=== PATIENT | male | born 1935 | race Caucasian/White ===

== ENCOUNTER 2016-11-11 10:04 | Inpatient (IN) ==
[2016-11-11 10:40] LABS: MANUAL DIFF NEEDED? NO
--- NOTE | 2016-11-11 10:46 | EKG Report ---
Test Performed on : 11/11/2016 10:29:14 AM Test Reason : AMS Blood Pressure : / mmHG Vent. Rate : 085 BPM Atrial Rate : 080 BPM P-R Int : 000 ms QRS Dur : 138 ms QT Int : 398 ms P-R-T Axes : 000 085 -23 degrees QTc Int : 473 ms Atrial fibrillation. Right bundle branch block T wave abnormality, consider inferior ischemia Abnormal ECG When compared with ECG of 24-JUN-2016 12:06, Left posterior fascicular block is no longer present T wave inversion now evident in Inferior leads QT has lengthened Unconfirmed Result
[2016-11-11] MEDS ORDERED: NS 1,000 ML IV ONE ×2 (11:00→12:35)
[2016-11-11 11:04] LABS: ALBUMIN 3.7 g/dL (3.5-5.0); CALCIUM 10.3 mg/dL (8.8-10.2); POTASSIUM 5.1 mmol/L (3.5-5.1); TOTAL BILIRUBIN 0.4 mg/dL (0.20-1.00); TOTAL PROTEIN 7.5 g/dL (6.3-8.3)
[2016-11-11 11:10] LABS: BASO% 0.3 % (0.0-0.8); EOS# 0.22 X1000 (0.0-0.7); EOS% 1.9 % (0.0-10.0); HEMATOCRIT 40.6 % (42.0-52.0); HEMOGLOBIN 13.3 g/dL (14.0-18.0); IMM GRAN# 0.02 X1000 (0.0-0.04); IMM GRAN% 0.2 % (0.0-0.5); LYMPH# 1.17 X1000 (1.2-3.4); LYMPH% 10.1 % (20.5-51.1); MCH 28.4 PG (27-31); MCHC 32.8 g/dL (33-37); MCV 86.8 FL (81-99); MONO# 0.92 X1000 (0.11-0.59); MONO% 7.9 % (1.7-9.3); MPV 10.3 FL (7.4-10.4); NEUT% 79.6 % (42.2-75.2); PLT 574 X1000 (130-400); RBC 4.68 XMIL (4.7-6.1)
[2016-11-11 11:13] LABS: AMYLASE 58 U/L (20-200); LIPASE 32 U/L (13-60)
[2016-11-11 11:14] LABS: INR 1.04 (0.86-1.15); PROTIME 13.9 Seconds (12.1-15.5)
[2016-11-11 11:16] LABS: PTT PL 49.6 Seconds (22.6-43.9)
--- NOTE | 2016-11-11 11:23 | Diag Imaging Result Doc PS360 ---
EXAM: HEAD W/O CONTRAST HISTORY: weakness TECHNIQUE: Dose reduction protocol COMPARISON: 10/29/2016 FINDINGS: No parenchymal hemorrhage. No epidural or subdural hematoma. No subarachnoid hemorrhage. There is atrophy with chronic microvascular ischemic changes and ventricular prominence. Old right lacunar. No sinus opacification. IMPRESSION: 1.No hemorrhage 2.Atrophy with chronic microvascular ischemic changes Electronically signed by Tone Zavala 11/11/2016 11:21 AM
--- NOTE | 2016-11-11 11:28 | Diag Imaging Result Doc PS360 ---
EXAM: CHEST-1 VIEW HISTORY: weakness TECHNIQUE: COMPARISON: 06/24/2016 FINDINGS: Poor inspiratory effort. The heart is prominent. There is right suprahilar prominence on the current exam. There are small bilateral pleural effusions with basilar atelectasis. There may be fibrosis in the right base as well versus a recurrent infiltrate. IMPRESSION: Right suprahilar mass like area. A CT is suggested. Electronically signed by Tone Zavala 11/11/2016 11:25 AM
--- NOTE | 2016-11-11 12:01 | PROVIDER DOCUMENTATION ---
This chart was entered by Kaylee Chew Scribe, acting as scribe for Chris Pickett PA. HPI-General Adult - General Chief Complaint: Weakness Stated Complaint: WEAKNESS/DIARRHEA Time Seen by Provider: 11/11/16 10:20 Source: patient, family Allergies/Adverse Reactions: Patient Allergies Allergy/AdvReac Type Severity Reaction Status Date / Time No Known Allergies Allergy Verified 10/29/16 12:53 Home Medications: Home Medication List Medication Instructions Recorded Confirmed Last Taken Type Digoxin 250 mcg PO DAILY 06/17/14 04/06/16 06/16/14 History Pregabalin [Lyrica] 150 mg PO DAILY 06/17/14 11/11/16 11/10/16 09:00 History Rivaroxaban [Xarelto] 20 mg PO DAILY 06/17/14 11/11/16 06/16/14 History Sertraline HCl 150 mg PO DAILY 06/17/14 11/11/16 11/10/16 09:00 History Amlodipine Besylate 1 tab PO DAILY 11/11/16 11/11/16 Unknown History Digoxin [Digox] 0.25 mcg PO DAILY 11/11/16 11/11/16 Unknown History Irbesartan 1 tab PO DAILY 11/11/16 11/11/16 Unknown History Oxycodone HCl/Acetaminophen 7.5 mg PO Q4H PRN PRN 11/11/16 11/11/16 Unknown History [Oxycodon-Acetaminophen 7.5-325] Oxycodone HCl/Acetaminophen 1 tab PO Q4HR 11/11/16 11/11/16 Unknown History [Percocet 7.5-325 mg Tablet] Rivaroxaban [Xarelto] 1 tab PO DAILY 11/11/16 11/11/16 Unknown History - History of Present Illness -Gen Adult Nature of Presenting Problems: PT IS A 81YOM PRESENTING TO THE ED C/O GENERAL WEAKNESS. PT FELL ON October WHEN GETTING OUT OF THE SHOWER AND HAS A DISPLACED COMPRESSION FX'S OF T-11, T- 12 WITH FOLLOW UP TO [place]THO IN [place]. PTS STATES THAT HE IS UNABLE TO MOVE OR CARE FOR HIMSELF SINCE FALL, PT HAS HAD DIARRHEA, ABD PAIN PN, DECREASED APPETITE, WEAKNESS, AND DRY MOUTH. FAMILY NEEDS ASSISTANCE WITH PT CARE BC SHE STATES HE IS BED BOUND NOW AFTER THE FALL. NO OTHER COMPLAINTS AT THIS TIME Location of Pain/Injury: reports: back, generalized Pain Radiation: reports: no radiation Quality of Pain: reports: aching Severity: reports: moderate Onset/Duration: reports: gradual, other (2 WEEKS) Timing: reports: still present, getting worse Context/Activities at Onset: reports: light activity, recent trauma history Modifying Factors: improves with: immobilization, lying down, movement. worse with: eating Associated Symptoms: reports: back/neck pain, diarrhea, dizziness, fatigue, loss of appetite, malaise, muscle aches, weakness, trouble walking. denies: anxiety, chest pain, syncope Similar Symptoms Previously?: No Recently seen or treated by another doctor?: Yes Review of Systems - Adult - REVIEW OF SYSTEMS - ADULT ROS:: ROS per family Constitutional: reports: no symptoms reported Eyes: reports: no symptoms reported Ears, Nose, Mouth & Throat: reports: see HPI, hearing loss. denies: sinus problem, throat swelling Cardiovascular: reports: no symptoms reported Respiratory: reports: no symptoms reported Gastrointestinal: reports: see HPI, abdominal pain, diarrhea, nausea, poor appetite. denies: constipation, vomiting Genitourinary: reports: no symptoms reported Musculoskeletal: reports: see HPI, bone pain, back pain, muscle aches, muscle weakness. denies: joint pain, neck pain Integumentary: reports: no symptoms reported Neurological: reports: no symptoms reported Psychiatric: reports: no symptoms reported Endocrine: reports: no symptoms reported Hematologic/Lymphatic: reports: no symptoms reported Allergic/Immunologic: reports: no symptoms reported All Other Systems: Reviewed and Negative Past History - Adult - PAST MEDICAL HISTORY-ADULT Review of Records: reports: Old Records Reviewed, Nursing Assessment Review, Medications Reviewed, Social history reviewed & non-contributory. Major Childhood Illnesses: reports: denies history Cardiovascular: reports: A-Fib, HTN Respiratory: reports: denies history Gastrointestinal: reports: cancer (prostate) Obstetrical/Gynecological: reports: denies history Genitourinary: reports: denies history Musculoskeletal: reports: denies history Neurological: reports: CVA Endocrine/Immune: reports: denies history Other Conditions: reports: denies history - PRIOR SURGERIES/PROCEDURES Surgical/Procedure History: reports: other (TURP) - IMMUNIZATION STATUS Childhood Immunizations: See Nurse Assessment Flu Vaccine: See Nurse Assessment - FAMILY HISTORY Family History: reviewed, not pertinent - SOCIAL HISTORY Smoking: quit greater than 1 year Substance Use: none/never, alcohol Alcohol Use Frequency: every day Number of drinks per typical drinking period:: 3-4 drinks Living Situation: family Physical Exam-General - PHYSICAL EXAM-ADULT Initial Vital Signs Reviewed: Yes - CONSTITUTIONAL General Appearance: alert, mild distress, thin, anxious. negative: no apparent distress - EYES Eyes: PERRL/EOMI, pink conjunctivae - HEAD, EARS, NOSE, MOUTH & THROAT HENMT: normocephalic/atraumatic, normal ENT inspection, TMs normal, pharynx normal, other (DRY MEMBRANES). negative: moist mucous membranes - NECK Neck: non-tender, full range of motion, supple, normal inspection - RESPIRATORY Respiratory: chest non-tender, lungs clear, normal breath sounds, no pleuratic chest pain, no respiratory distress, no accessory muscle use - CARDIOVASCULAR Cardiovascular: normal peripheral pulses, regular rate, rhythm, no edema, no gallop, no JVD, no murmur, other (HYPOTENSIVE, HX OF HTN) - GASTROINTESTINAL (ABDOMEN) Abdominal Exam: normal bowel sounds, non tender, soft, no organomegaly, no pulsatile mass - LYMPHATIC Lymphatic: no adenopathy - MUSCULOSKELETAL Back Exam: normal inspection, no CVA tenderness, muscle spasm, vertebral tenderness. negative: no vertebral tenderness Extremity: non-tender, no pedal edema, no calf tenderness, normal capillary refill, pelvis stable. negative: normal range of motion, normal gait, normal inspection - SKIN Integumentary: normal color, normal turgor, warm/dry - NEUROLOGIC Neurologic: grossly normal, no motor/sensory deficits, motor weakness - PSYCHIATRIC Psych/Mental Status: normal thought content, normal thought process, oriented x 3, depressed affect. negative: normal mood/affect Progress - PLAN OF CARE/RESULTS Progress/Plan/Lab Results: Vital Signs - 8 hr 11/11/16 10:06 Temperature 97.9 F Pulse Rate 84 Respiratory Rate 22 Blood Pressure 84/55 Laboratory Results - last 24 hr 11/11/16 11/11/16 11/11/16 10:30 10:30 10:30 WBC RBC Hgb Hct MCV MCH MCHC RDW Std Deviation Plt Count MPV Immature Gran % (Auto) Neut % (Auto) Lymph % (Auto) [place] % (Auto) Eos % (Auto) Baso % (Auto) Immature Gran # (Auto) Neut # (Auto) Lymph # (Auto) [place] # (Auto) Eos # (Auto) Baso # (Auto) PT INR APTT (Factor Assay) Sodium 130 L Potassium 5.1 Chloride 92 L Carbon Dioxide 26 Anion Gap 12 BUN 51 H Creatinine 1.7 H Estimated GFR/1.73 m2 39 BUN/Creatinine Ratio 30 Glucose 97 Calculated Osmolality 274 Calcium 10.3 H Total Bilirubin 0.40 AST 22 ALT 15 Alkaline Phosphatase 113 Creatine Kinase 17 L Troponin T < 0.010 Total Protein 7.5 Albumin 3.7 Globulin 4.0 Albumin/Globulin Ratio 1.0 Amylase Lipase Plasma Lactate 0.9 11/11/16 11/11/16 11/11/16 10:30 10:30 10:30 WBC 11.64 H RBC 4.68 L Hgb 13.3 L Hct 40.6 L MCV 86.8 MCH 28.4 MCHC 32.8 L RDW Std Deviation 14.9 H Plt Count 574 H MPV 10.3 Immature Gran % (Auto) 0.2 Neut % (Auto) 79.6 H Lymph % (Auto) 10.1 L [place] % (Auto) 7.9 Eos % (Auto) 1.9 Baso % (Auto) 0.3 Immature Gran # (Auto) 0.02 Neut # (Auto) 9.28 H Lymph # (Auto) 1.17 L [place] # (Auto) 0.92 H Eos # (Auto) 0.22 Baso # (Auto) 0.03 PT 13.9 INR 1.04 APTT (Factor Assay) 49.6 H Sodium Potassium Chloride Carbon Dioxide Anion Gap BUN Creatinine Estimated GFR/1.73 m2 BUN/Creatinine Ratio Glucose Calculated Osmolality Calcium Total Bilirubin AST ALT Alkaline Phosphatase Creatine Kinase Troponin T Total Protein Albumin Globulin Albumin/Globulin Ratio Amylase 58 Lipase 32 Plasma Lactate Orders Category Date Time Status Cardiac Monitoring DIRECTED Care 11/11/16 10:17 Active Finger Stick Blood Sugar (ED) DIRECTED Care 11/11/16 10:17 Active Oxygen Therapy- ED Nursing DIRECTED Care 11/11/16 10:17 Active Saline Loc NOW Care 11/11/16 10:17 Active CHEST-1 VIEW [RAD] Stat Exams 11/11/16 11:01 Ordered HEAD W/O CONTRAST [CT] Stat Exams 11/11/16 11:00 Ordered ALCOHOL BLOOD Stat Lab 11/11/16 10:30 Received AMYLASE [CHEM] Stat Lab 11/11/16 10:30 Completed CBC WITH ELECTRONIC DIFF [HEME] Stat Lab 11/11/16 10:30 Completed CK PROFILE [SP CHEM] Stat Lab 11/11/16 10:30 Completed COMPREHENSIVE METABOLIC PANEL [CHEM] Stat Lab 11/11/16 10:30 Completed LACTATE, PLASMA [CHEM] Stat Lab 11/11/16 10:30 Completed LIPASE [CHEM] Stat Lab 11/11/16 10:30 Com[address]IME WITH INR PL [COAG] Stat Lab 11/11/16 10:[address] [COAG] Stat Lab 11/11/16 10:30 Completed TROPONIN T Stat Lab 11/11/16 10:[address] W/POSS RFLX CULT [URINALYSIS] Stat Lab 11/11/16 10:17 Uncollected URINE DRUG SCREEN PL Stat Lab 11/11/16 10:17 Uncollected 0.9% Sodium Chloride Inj [Ns] 1,000 ml Med 11/11/16 11:00 Active IV 999 mls/hr Pulse Oximetry Stat Oth 11/11/16 10:17 Active EKG [EKG] Stat Ther 11/11/16 10:17 Draft Result Diagrams: 11/11/16 10:30 11/11/16 10:30 - CONSULTS/PCP/HOSPITALIST Notification #1 *Consult/PCP/Hospitalist*: Dr. Leigh (PCP) Time Discussed: 12:33 Reason/Comments: Will admit Departure - Departure Date of Disposition Decision: 11/11/16 Time of Disposition Decision: 12:33 DIAGNOSIS: Dehydration, SONALI (acute kidney injury), Mass in chest, Decreased activities of daily living (ADL) Disposition: ADMITTED INPATIENT 09 Certified Medical Emergency: Emergent Condition: Stable Referrals and Follow-Ups: Prasanth Leigh MD [Primary Care Provider] - - Critical Care Note This patient required my direct & personal management of CC.: No Attestation - Physician/ FREIDA Attestation Patient care was provided by Advanced Practice Provider:: Yes Advanced Practice Provider:: Chris Pickett Advanced Practice Provider documentation review:: The Mid-level provider documentation, treatment plan and medical decision making was reviewed by the physician who agrees with all treatment and medical decision making by the MLP. This chart was documented by the indicated scribe, (Kaylee Chew Scribe) and accurately reflects the services I performed and decisions made by me, Chris Pcikett PA, as attested by the provider's signature.
[2016-11-11] MEDS ORDERED: MORPHINE IM ONE (12:10)
[2016-11-11] MEDS ORDERED: ZOFRAN IV ONE (12:10)
[2016-11-11 12:58] LABS: URINE CULTURE PL NEEDED? NO
--- NOTE | 2016-11-11 13:02 | ED EKG INTERP ---
This chart was entered by Kaylee Chew Scribe, acting as scribe for Darek Guerrero MD. EKG Interpretation - EKG Time of EKG reading by physician:: 10:29 EKG Read and Signed by:: Darek Guerrero EKG Interpretation (*Must complete 3 of following elements*): Abnormal Rate: 85 Rhythm: A-FIB [place]: normal QRS: RBB, other (T WAVE ABNORMALITY, CONSIDER INFERIOR ISCHEMIA) [place] Interval: normal ST Wave: normal This chart was documented by the indicated scribe, (Kaylee Chew Scribe) and accurately reflects the services I performed and decisions made by me, Darek Guerrero MD, as attested by the provider's signature.
[2016-11-11 13:03] LABS: UR AMPHETAMINES QUAL NONE DETECTED (NONE DETECT); UR BARBITUATES QUAL NONE DETECTED (NONE DETECT); UR BENZODIAZEPIN QUAL NONE DETECTED (NONE DETECT); UR CANNABINOIDS QUAL NONE DETECTED (NONE DETECT); UR COCAINE QUAL NONE DETECTED (NONE DETECT); UR MDMA QUAL NONE DETECTED (NONE DETECT); UR METHADONE QUAL NONE DETECTED (NONE DETECT); UR METHAMPHETAMINE QUAL NONE DETECTED (NONE DETECT); UR OPIATES QUAL NONE DETECTED (NONE DETECT); UR OXYCODONE QUAL PRESUMPTIVE POSITIVE (NONE DETECT); UR PCP QUAL NONE DETECTED (NONE DETECT); UR TCA QUAL NONE DETECTED (NONE DETECT)
[2016-11-11 13:04] LABS: BILIRUBIN URINE NEGATIVE (NEGATIVE); BLOOD URINE NEGATIVE (NEGATIVE); COLOR YELLOW; GLUCOSE URINE NEGATIVE (NEGATIVE); LEUKOCYTES URINE NEGATIVE (NEGATIVE); NITRITE URINE NEGATIVE (NEGATIVE); PROTEIN URINE NEGATIVE (NEGATIVE); SP GRAVITY URINE 1.015; UROBILINOGEN URINE NORMAL
[2016-11-11 13:38] LABS: CLARITY CLEAR (CLEAR); URINE EPITHELIAL CELLS <10 /HPF (<10); URINE SOURCE CATH
[2016-11-11] MEDS ORDERED: M.V.I.-12 10 ML, FOLIC ACID 1 MG, MAGNESIUM SULFATE 1 GM, THIAMINE 100 MG in NS 1,000 ML IV SCH (17:00)
[2016-11-11] MEDS: PERCOCET-5 PO PRN (20:04)
[2016-11-11] MEDS: DUONEB (A & A) INH PRN (20:40)
[2016-11-11] MEDS ORDERED: NS 1,000 ML IV SCH (22:32)
[2016-11-11] MEDS ORDERED: MOVANTIK PO ONE (22:33)
[2016-11-12] MEDS: DUONEB (A & A) INH PRN ×4 (07:58→22:12)
[2016-11-12] MEDS: ZOLOFT PO SCH (08:26)
[2016-11-12] MEDS: LYRICA PO SCH (08:26)
[2016-11-12] MEDS: MOVANTIK PO SCH (08:26)
[2016-11-12] MEDS: NORVASC PO SCH (08:27)
[2016-11-12] MEDS: AVAPRO PO SCH (08:27)
[2016-11-12] MEDS: LANOXIN PO SCH (08:27)
[2016-11-12] MEDS ORDERED: XARELTO PO SCH (09:00)
[2016-11-12] MEDS ORDERED: LANOXIN PO SCH (09:00)
[2016-11-12] MEDS: NS 1,000 ML IV SCH ×2 (11:49→18:35)
[2016-11-12 13:05] LABS: AGAP 13; ALBUMIN 3.6 g/dL (3.5-5.0); ALKALINE PHOSPHATASE 110 U/L (32-122); BUN 29 mg/dL (8-22); CALCIUM 8.8 mg/dL (8.8-10.2); CHLORIDE 98 mmol/L (98-107); COSMO 276; GOT 20 U/L (10-34); GPT 13 U/L (10-44); POTASSIUM 5.1 mmol/L (3.5-5.1); SODIUM 135 mmol/L (136-145); TCO2 25 mmol/L (25-35); TOTAL PROTEIN 6.5 g/dL (6.3-8.3)
[2016-11-12] MEDS: PERCOCET-5 PO PRN (15:49)
[2016-11-12] MEDS: XARELTO PO SCH (17:36)
[2016-11-13] MEDS: NS 1,000 ML IV SCH ×4 (01:25→23:49)
[2016-11-13] MEDS: MOVANTIK PO SCH (06:22)
[2016-11-13 06:45] LABS: MANUAL DIFF NEEDED? NO
[2016-11-13 06:52] LABS: BASO% 0.1 % (0.0-0.8); EOS# 0.16 X1000 (0.0-0.7); HEMATOCRIT 32.2 % (42.0-52.0); HEMOGLOBIN 10.1 g/dL (14.0-18.0); IMM GRAN# 0.02 X1000 (0.0-0.04); IMM GRAN% 0.3 % (0.0-0.5); LYMPH# 0.71 X1000 (1.2-3.4); MCH 28.1 PG (27-31); MCHC 31.4 g/dL (33-37); MCV 89.7 FL (81-99); MONO# 0.63 X1000 (0.11-0.59); MPV 9.5 FL (7.4-10.4); NEUT% 80.6 % (42.2-75.2); PLT 311 X1000 (130-400); RBC 3.59 XMIL (4.7-6.1)
[2016-11-13 06:59] LABS: AGAP 10; ALBUMIN 2.9 g/dL (3.5-5.0); ALKALINE PHOSPHATASE 87 U/L (32-122); BUN 18 mg/dL (8-22); CALCIUM 8.2 mg/dL (8.8-10.2); CHLORIDE 101 mmol/L (98-107); COSMO 270; GOT 17 U/L (10-34); GPT 11 U/L (10-44); POTASSIUM 4.9 mmol/L (3.5-5.1); SODIUM 134 mmol/L (136-145); TCO2 23 mmol/L (25-35); TOTAL PROTEIN 5.8 g/dL (6.3-8.3)
[2016-11-13] MEDS: DUONEB (A & A) INH PRN ×2 (07:34→20:36)
[2016-11-13] MEDS: LANOXIN PO SCH (09:38)
[2016-11-13] MEDS: NORVASC PO SCH (09:42)
[2016-11-13] MEDS: LYRICA PO SCH (09:43)
[2016-11-13] MEDS: AVAPRO PO SCH (09:43)
[2016-11-13] MEDS: ZOLOFT PO SCH (09:49)
--- NOTE | 2016-11-13 13:23 | HISTORY AND PHYSICAL ---
HISTORY OF PRESENT ILLNESS: The patient is a regular office patient of [employer] I have been seeing for many years. For assorted problems including hypertension, history of atrial fibrillation, history of a stroke, history of CA of the prostate. Recently the patient was in his usual state of ill health and had been complaining of generalized weakness. He fell on October 29 while he was getting out of the shower and has displaced compression fractures at T11 and T12 and has been seeing an orthopedic doctor in [place], Dr. Reyes. The patient now is unable to move or care for himself as stated by his . He is very difficult for her to handle and he has had since the fall some problems with some belly pain and diarrhea, decreased appetite, dry mouth and general weakness. He takes powerful opiates. She states that he needs assistance because he is basically bed bound and needs to have some rehab. He is also being evaluated with his osteopenia by Dr. Reyes for the possibility of a kyphoplasty. This problem has been going on for approximately 2 weeks . His evaluation in the emergency room revealed a temperature of 97.9 degrees, pulse of 84, respiratory rate 22, BP 84/55, typically he has hypertension. His sodium was 13, potassium 5.1, chloride 92, CO2 26, BUN was 51, creatinine 1.7. These are atypically high for him. Anion gap was 12. Estimated GFR 39. BUN and creatinine ratio is 30. Glucose was 97. Calcium is 10.3, total bilirubin 0.4, AST 22, ALT 15. Alkaline phosphatase 113. CK 17, troponin less than 0.01. Total protein 75, albumin 3.7, globulin 4, plasma lactate is 0.9. His WBCs were 11.64, hematocrit was 40.6, platelet count was 574,000. PT was 104, INR, PTT 49.6, amylase and lipase were normal. He had a continued issue with his activities of daily life and that is why he was brought here and we felt that he needed to be admitted. ALLERGIES: No known allergies. MEDICATIONS: Include the following: He takes digoxin 250 daily, Lyrica 150 daily, Xarelto 20 daily, Zoloft 150 daily, amlodipine daily, irbesartan 1 daily. He has taken 7.5 OxyContin q.4 h for his back pain. REVIEW OF SYSTEMS: General: Mostly obtained from his family. He has not had any recent significant fever, chills, weight gain or weight loss. Eyes: No changes in visual acuity. No irritation of the sclera or conjunctiva. Visual connelly were unchanged. Ears, nose and throat: He has had dry mouth. No evidence of pharyngitis, otitis or sinusitis. 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 Cardiovascular: No chest pain. He is not aware of palpitations. He is not aware of any orthopnea, PND. No claudication and no chest pain. Respiratory: No significant cough or phlegm production. He has significant exercise tolerance issues. Musculoskeletal: He has bone pain in his back. His muscles ache. He has general generally weak. He has no inflamed joints. Skin: Clear. No rashes. Neurological: No focal neurological deficits. Psychiatric: He is chronically anxious and depressed. Endocrine: No polyuria, polydipsia, polyphagia, weight gain or weight lost. Hematologic: He is on a blood thinner but has no significant bruises or bleeding. As previously mentioned, he has had a history of hypertension complicated by atrial fibrillation and a history of stroke all tying together nicely. He has a history of CA of the prostate. SOCIAL HISTORY: He is an ex-smoker having quit more than a year ago. He is a drinker. He does not abuse any substances. He lives with his son and much younger from [facility]. PHYSICAL EXAMINATION: HEENT: Head was normocephalic with some temporal wasting. Eyes were PERRLA. EOMs intact. SC were anicteric and they were not pale. Nares patent. Oropharynx with some dry mucosal membranes. NECK: Midline trachea. No thyromegaly. No lymphadenopathy. Carotids without bruits. CHEST: Increased AP diameter. Diminished breath sounds throughout. Rhonchi. No consolidative features were appreciated. ABDOMEN: Soft. No hepatosplenomegaly. No CVA tenderness. He is somewhat bloated and tender in his lower abdomen felt to be secondary to his constipation. EXTREMITIES: Thin. Pulses were intact. He had some bruising about his skin surfaces. NEUROLOGICAL: He was symmetrical. ADMITTING DIAGNOSES: 1. Recent compression fractures. 2. Fall risk. 3. Failure to thrive. 4. Moderate to severe dehydration. 5. Constipation. 6. History of hypertension. 7. History of atrial fibrillation. 8. Current hypotension. PLAN: He was admitted for fluid resuscitation and pain control. Shown coincidentally, to find an abnormality on his chest x-ray that had not previously been present and this is going to be worked up, as well. cc: Prasanth Leigh MD
--- NOTE | 2016-11-13 13:51 | Diag Imaging Result Doc PS360 ---
CT THORAX W/CONTRAST - 11/13/2016 INDICATION: hilar mass TECHNIQUE: A CT dose reduction protocol was used. COMPARISON: 06/03/2014 FINDINGS: There is slight enlargement of the left basilar pleural thickening or effusion, at the lateral pleural surface. There is a trace left effusion as well. There is severe COPD with upper lobe predominance. There are some stable strandy scarring at the right lung base. Major airways are patent. There is progression in size of the hiatal hernia. There is worse cardiomegaly, notably enlargement of the right atrium. There is also calcified coronary artery disease. There is severe calcified disease of the branches of the abdominal aorta. 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 There is also severe bilateral renal artery stenosis with over 70% narrowing. Spleen size is mildly enlarged measuring 13.8 x 7 cm. There are numerous healed rib deformities and degenerative changes throughout the spine. No acute bony process. IMPRESSION: 1. Worsening cardiomegaly. 2. Worsening pleural thickening/effusion at the right lung base. New trace left effusion. 3. Grossly stable severe COPD with pulmonary scarring. 4. 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 5. Worsening hiatal hernia. Electronically signed by Jaspreet Madrid 11/13/2016 1:49 PM
[2016-11-13] MEDS: XARELTO PO SCH (17:11)
[2016-11-14] MEDS: NS 1,000 ML IV SCH ×3 (05:52→18:57)
[2016-11-14] MEDS: DUONEB (A & A) INH PRN ×2 (07:33→12:14)
[2016-11-14] MEDS: AVAPRO PO SCH (08:47)
[2016-11-14] MEDS: MOVANTIK PO SCH (08:48)
[2016-11-14] MEDS: LYRICA PO SCH (08:48)
[2016-11-14] MEDS: ZOLOFT PO SCH (08:48)
[2016-11-14] MEDS: NORVASC PO SCH (08:49)
[2016-11-14] MEDS: LANOXIN PO SCH (08:51)
--- NOTE | 2016-11-14 13:19 | PROGRESS NOTE ---
DATE: 11/14/2016 An 81-year-old male who is hospitalized for an acute compression fracture complicated by constipation secondary to opiate use for his compression fracture. He continues to have pain. I continue to disimpact him. He is some better. Belly is soft. I think we almost have him disimpacted. He is tentatively set up to go Wednesday to a rehab center. cc: Prasanth Leigh MD
[2016-11-14] MEDS: XARELTO PO SCH (17:28)
[2016-11-14] MEDS: PERCOCET-5 PO PRN (21:22)
[2016-11-15] MEDS: NS 1,000 ML IV SCH ×3 (02:07→18:27)
[2016-11-15] MEDS: PERCOCET-5 PO PRN ×2 (02:07→10:24)
[2016-11-15] MEDS: DUONEB (A & A) INH PRN ×4 (08:12→19:41)
[2016-11-15] MEDS: NORVASC PO SCH (10:15)
[2016-11-15] MEDS: ZOLOFT PO SCH (10:15)
[2016-11-15] MEDS: LYRICA PO SCH (10:16)
[2016-11-15] MEDS: MOVANTIK PO SCH (10:16)
[2016-11-15] MEDS: LANOXIN PO SCH (10:16)
[2016-11-15] MEDS: AVAPRO PO SCH (10:18)
[2016-11-15] MEDS: XARELTO PO SCH (17:26)
[2016-11-16] MEDS: PERCOCET-5 PO PRN ×2 (00:18→21:29)
[2016-11-16] MEDS: NS 1,000 ML IV SCH ×4 (07:30→21:30)
[2016-11-16] MEDS: MOVANTIK PO SCH (08:29)
[2016-11-16] MEDS: LYRICA PO SCH (08:30)
[2016-11-16] MEDS: LANOXIN PO SCH (08:30)
[2016-11-16] MEDS: ZOLOFT PO SCH (08:30)
[2016-11-16] MEDS: NORVASC PO SCH (08:30)
[2016-11-16] MEDS: AVAPRO PO SCH (08:31)
[2016-11-16] MEDS: XARELTO PO SCH (17:08)
[2016-11-16] MEDS: DUONEB (A & A) INH PRN (19:49)
[2016-11-17] MEDS: NS 1,000 ML IV SCH ×3 (03:28→12:00)
[2016-11-17] MEDS: DUONEB (A & A) INH PRN ×3 (08:01→15:06)
[2016-11-17] MEDS: MOVANTIK PO SCH (08:06)
[2016-11-17] MEDS: LANOXIN PO SCH (09:02)
[2016-11-17] MEDS: NORVASC PO SCH (09:02)
[2016-11-17] MEDS: LYRICA PO SCH (09:02)
[2016-11-17] MEDS: ZOLOFT PO SCH (09:03)
[2016-11-17] MEDS: AVAPRO PO SCH (09:03)
--- NOTE | 2016-11-17 14:44 | DISCHARGE SUMMARY ---
ADMISSION DATE: 11/11/2016 DISCHARGE DATE: HOSPITAL COURSE: The patient is a regular office patient of mine I have been seeing for many years for problems including hypertension, history of atrial fibrillation, history of a CVA, history of CA of the prostate. He has been generalized weakness lately and he fell on October 29 while he was getting out of the shower and sustained a displaced compression fracture of T11 and T12 and has been seeing an orthopedic doctor in [place], Dr. Reyes. The patient, however, in the meanwhile has been become unable to move for a care for himself as stated by his , and he is very difficult to handle, both physically and mentally. He has had some belly distention complicated by constipation and diarrhea. Since he has been started on pain medications, he has a decreased appetite, dry mouth and generalized weakness. He has been taking significantly powerful opiates and he states that he needs to be assisted because he is basically bed bound and needs some kind of rehab. He is also being evaluated with his osteopenia by Dr. Reyes for the possibility of a kyphoplasty. This problem has been going on approximately 2 weeks prior to his admission on 11/10/16. While in the hospital for pain control, with significant problems with abdominal distention, I had to disimpact him on 2 different occasions, but currently with Movantik and decreasing his pain medicines from oxycodone to [place] may alleviate that problem. His back pain seems a bit better as he can roll from side to side seemingly without great discomfort. While was in the hospital as well, he was noted on admission to have a BUN of 51, creatinine 1.7 and with rehydration by 11/13, his BUN was 18, creatinine was 0.8. His urinalysis was unremarkable. Toxicology showed OxyContin. Coagulase, PTT was 49.6. Hematologically he had a elevated white count of 11.64 on admission, but with hydration it dropped to 7.91. His hematocrit was 40.6 on admission, with hydration dropped to 32.2. Platelet count was 574,000, with hydration dropped to 311,000. He did not run fevers during the hospital stay. His blood pressures were well controlled. He had a room O2 saturation on 11/17 of 99% on 2 L. On room air it was 93%. He seemed to tolerate that just fine. He is being sent to a local rehab for further convalescence for his illnesses. CURRENT MEDICATIONS: Albuterol/Atrovent q.4 p.r.n., 5 mg of amlodipine daily, digoxin 0.25 mg daily, Movantik 12.5 daily, irbesartan, Avapro 150 daily, Lyrica 150 daily, Xarelto 20 with supper, Zoloft 150, and he is going to be discharged on [place] and he is going to be bumped up on his Lyrica to twice a day. We will continue to follow him and he will subsequently be sent to perhaps Dr. Reyes if his condition does not continue to improve. He seems better now though. cc: Prasanth Leigh MD
[2016-11-17 16:17] VITALS: BP 144/72
[2016-11-17] MEDS: XARELTO PO SCH (17:47)
== END 2016-11-17 19:30 ==
LOC: P.ED 10:04 → P.MEDSURG 13:09
PROVIDERS: ADMIT Internal Medicine; ATTEND Internal Medicine

== ENCOUNTER 2018-12-18 13:35 | Inpatient (IN) ==
[2018-12-18] MEDS ORDERED: ASPIRIN PO ONE (13:42)
[2018-12-18 14:21] LABS: BASO# 0.02 X1000 (0.0-0.2); BASO% 0.3 % (0.0-0.8); EOS# 0.15 X1000 (0.0-0.7); EOS% 2.5 % (0.0-10.0); HEMATOCRIT 34.5 % (42.0-52.0); HEMOGLOBIN 11.7 g/dL (14.0-18.0); IMM GRAN# 0.01 X1000 (0.0-0.04); IMM GRAN% 0.2 % (0.0-0.5); LYMPH# 0.81 X1000 (1.2-3.4); LYMPH% 13.7 % (20.5-51.1); MCH 27.9 PG (27-31); MCHC 33.9 g/dL (33-37); MCV 82.1 FL (81-99); MONO# 0.69 X1000 (0.11-0.59); MONO% 11.6 % (1.7-9.3); MPV 10.8 FL (7.4-10.4); NEUT# 4.25 X1000 (1.4-6.5); NEUT% 71.7 % (42.2-75.2); PLT 210 X1000 (130-400); WBC 5.93 X1000 (4.8-10.8)
--- NOTE | 2018-12-18 14:30 | Diag Imaging Result Doc PS360 ---
EXAM: CHEST-2 VIEWS 12/18/2018 HISTORY: CHEST PAIN TECHNIQUE: PA and lateral chest COMMENT: There is pleural thickening and increased interstitial opacity in the left base. There is loculated pleural effusion on the right with interstitial opacity and apparent atelectasis in the right base. These findings were also present on 11/23/2018. The heart size remains enlarged. IMPRESSION: Right pleural effusion. Interstitial pulmonary edema and/or fibrosis. Electronically signed by Errol Martinez 12/18/2018 2:27 PM
[2018-12-18 14:33] LABS: INR 1.49; PROTIME 18.8 Seconds (11.0-16.0)
[2018-12-18 14:34] LABS: PTT 48.7 Seconds (22.3-41.8)
--- NOTE | 2018-12-18 14:38 | EKG Report ---
Test Performed on : 12/18/2018 1:51:55 PM Test Reason : CHEST PAIN SOB Blood Pressure : / mmHG Vent. Rate : 062 BPM Atrial Rate : 077 BPM P-R Int : 000 ms QRS Dur : 146 ms QT Int : 434 ms P-R-T Axes : 000 071 003 degrees QTc Int : 440 ms Atrial fibrillation. Right bundle branch block Abnormal ECG When compared with ECG of 09-JAN-2018 12:57, Right bundle branch block has replaced RSR' pattern in V1 Criteria for Septal infarct are no longer present Unconfirmed Result
--- NOTE | 2018-12-18 14:38 | PROVIDER DOCUMENTATION ---
This chart was entered by Jenny Miller Scribe, acting as scribe for Melissa Sosa MD. HPI-Chest Pain - General Chief Complaint: Chest Pain Stated Complaint: CHEST TIGHTNESS Time Seen by Provider: 12/18/18 13:51 Source: patient Allergies/Adverse Reactions: Patient Allergies Allergy/AdvReac Type Severity Reaction Status Date / Time No Known Allergies Allergy Verified 11/21/17 13:34 Home Medications: Home Medication List Medication Instructions Recorded Confirmed Last Taken Type Rivaroxaban [Xarelto] 20 mg PO HS 06/17/14 12/18/18 12/17/18 21:00 History Digoxin [Digox] 0.25 tab PO DAILY 11/11/16 12/18/18 12/18/18 09:00 History Irbesartan 150 mg PO DAILY 11/11/16 12/18/18 12/18/18 09:00 History Amlodipine Besylate [Norvasc] 2.5 mg PO DAILY 09/12/17 12/18/18 12/18/18 09:00 History Levothyroxine [Synthroid] 25 microgm PO DAILY 09/12/17 12/18/18 12/18/18 09:00 History Acetaminophen [Tylenol] 650 mg PO Q6H PRN PRN 12/18/18 12/18/18 Unknown History Albuterol [Albuterol Neb] 2.5 mg INH Q4H PRN PRN 12/18/18 12/18/18 12/18/18 11: 00 History Pregabalin [Lyrica] 150 mg PO BID 12/18/18 12/18/18 12/18/18 09:00 History Sertraline HCl 150 mg PO DAILY 12/18/18 12/18/18 12/18/18 09:00 History - History of Present Illness-CP Nature of Presenting Problem: 83 y/o male presents to ED with pressure-like chest pain, SOB, and cough onset 2 hours ago. Pt reports hx COPD/CHF, afib, and is on home O2. Pt is alert and oriented. Location: reports: central Chest Pain Radiation: reports: no radiation Quality of Pain: reports: pressure Severity in ED: moderate Onset/Duration: 1-3 hours ago Timing: still present Context/Activities at Onset: reports: none Modifying Factors: improves with: nothing Associated Symptoms: reports: shortness of breath Nitro Today/Relief: no nitro taken today Aspirin Treatment Today: 325 mg x 1, provided by ED Prior Chest Pain/Cardiac Workup: reports: no prior chest pain, no prior cardiac workup Similar Symptoms Previously?: No Recently Seen Here or By Another Healthcare Provider: No Review of Systems - Adult - REVIEW OF SYSTEMS - ADULT Constitutional: denies: chills, fever Eyes: reports: no symptoms reported Ears, Nose, Mouth & Throat: reports: no symptoms reported Cardiovascular: reports: chest pain. denies: palpitations Respiratory: reports: cough, shortness of breath Gastrointestinal: denies: abdominal pain, diarrhea, nausea, vomiting Genitourinary: reports: no symptoms reported Musculoskeletal: denies: back pain, joint pain Integumentary: reports: no symptoms reported Neurological: denies: dizziness/vertigo, seizure Psychiatric: reports: no symptoms reported Endocrine: reports: no symptoms reported Hematologic/Lymphatic: reports: no symptoms reported Allergic/Immunologic: reports: no symptoms reported All Other Systems: Reviewed and Negative Past History - Adult - PAST MEDICAL HISTORY-ADULT Review of Records: reports: Old Records Reviewed, Nursing Assessment Review, Medications Reviewed Major Childhood Illnesses: reports: denies history Cardiovascular: reports: A-Fib, CHF, HTN Respiratory: reports: COPD Gastrointestinal: reports: cancer (prostate) Obstetrical/Gynecological: reports: denies history Genitourinary: reports: prostate cancer Musculoskeletal: reports: denies history Neurological: reports: CVA Endocrine/Immune: reports: denies history Other Conditions: reports: other cancer (skin) - PRIOR SURGERIES/PROCEDURES Surgical/Procedure History: reports: other (TURP) - IMMUNIZATION STATUS Childhood Immunizations: See Nurse Assessment Flu Vaccine: See Nurse Assessment - FAMILY HISTORY Family History: reviewed, not pertinent - SOCIAL HISTORY Smoking: quit greater than 1 year Substance Use: none/never Alcohol Use Frequency: every day Living Situation: family Physical Exam-General - PHYSICAL EXAM-ADULT Initial Vital Signs Reviewed: Yes - CONSTITUTIONAL General Appearance: appears well, alert, no apparent distress - EYES Eyes: PERRL/EOMI, pink conjunctivae - HEAD, EARS, NOSE, MOUTH & THROAT HENMT: normocephalic/atraumatic, moist mucous membranes, normal ENT inspection - NECK Neck: non-tender, full range of motion - RESPIRATORY Respiratory: chest non-tender, other (raspy breath sounds). negative: normal breath sounds - CARDIOVASCULAR Cardiovascular: irregularly irregular - GASTROINTESTINAL (ABDOMEN) Abdominal Exam: normal bowel sounds, non tender, soft - MUSCULOSKELETAL Back Exam: normal inspection, no CVA tenderness, no vertebral tenderness Extremity: normal range of motion, non-tender, normal gait - SKIN Integumentary: normal color, warm/dry - NEUROLOGIC Neurologic: grossly normal - PSYCHIATRIC Psych/Mental Status: normal mood/affect, normal thought content, normal thought process, oriented x 3 - HEART Score HEART Score: History: Moderately Suspicious HEART Score: ECG: Normal HEART Score: Age: > or = 65 Years HEART Score: Risk Factors for Atherosclerotic Disease: 1 or 2 Risk Factors HEART Score: Troponin: < or = Normal Limit Total HEART Score:: 4 Progress - PLAN OF CARE/RESULTS Result Diagrams: 12/18/18 14:06 12/18/18 14:06 - EKG 1 Time of EKG reading by physician:: 13:51 EKG Read and Signed by:: Melissa Sosa EKG Interpretation (*Must complete 3 of following elements*): Abnormal Rate: 62 Rhythm: Afib [place]: normal QRS: RBB CO Interval: normal ST Wave: normal - XRAY 1 XRAY Study: Chest Impression: See EMR Report ([facility] - [address] [place] [address] [place], [place] [id number] [facility] [address] [place] [address] Department of Imaging Patient: BRITTANY BROCK Date: 12/18/18#: [id number] : 1935DM Status: PRE ERAcct#: [id number] Age/Sex: 83/MRoom/Bed: Loc: P.ED Ordering Physician: Melissa Sosa MD Family Physician: Prasanth Leigh MD Reason for Procedure: CHEST PAIN Signed EXAM: CHEST-2 VIEWS 12/18/2018 HISTORY: CHEST PAIN TECHNIQUE: PA and lateral chest COMMENT: There is pleural thickening and increased interstitial opacity in the left base. There is loculated pleural effusion on the right with interstitial opacity and apparent atelectasis in the right base. These findings were also present on 11/23/2018. The heart size remains enlarged. IMPRESSION: Right pleural effusion. Interstitial pulmonary edema and/or fibrosis. Electronically signed by Errol Martinez 12/18/2018 2:27 PM 12/18/18 142 Interpreting Physician: Errol Martinez MD Dictated Date/Time: 12/18/18 1426 cc: Melissa Sosa MD; Prasanth Leigh MD) - CONSULTS/PCP/HOSPITALIST Notification #1 *Consult/PCP/Hospitalist*: Dr. Leigh Time Discussed: 16:03 Reason/Comments: Chest pain, COPD/CHF exacerbation Consult Disposition: Admit Departure - Departure Date of Disposition Decision: 12/18/18 Time of Disposition Decision: 15:45 DIAGNOSIS: COPD exacerbation Chest pain Qualifiers: Chest pain type: unspecified Qualified Code(s): R07.9 - Chest pain, unspecified CHF (congestive heart failure) Qualifiers: Heart failure type: unspecified Heart failure chronicity: unspecified Qualified Code(s): I50.9 - Heart failure, unspecified Disposition: ADMITTED INPATIENT 09 Certified Medical Emergency: Emergent Condition: Stable - Critical Care Note This patient required my direct & personal management of CC.: No Attestation - Physician/ FREIDA Attestation Patient care was provided by Advanced Practice Provider:: No The physician spent face to face time with patient:: Yes Advanced Practice Provider documentation review:: Supervising physician onsite and consulted in the evaluation and care of this patient. The physician did have a face to face encounter with the patient. This chart was documented by the indicated scribe, (Jenny Miller, Kristin) and accurately reflects the services I performed and decisions made by me, Melissa Sosa MD, as attested by the provider's signature.
[2018-12-18] MEDS ORDERED: LASIX IV ONE (14:47)
[2018-12-18 14:48] LABS: ALBUMIN 4.4 g/dL (3.5-5.0); CALCIUM 9.3 mg/dL (8.8-10.2); CREATININE 1.2 mg/dL (0.7-1.2); POTASSIUM 4.7 mmol/L (3.5-5.1); TOTAL BILIRUBIN 0.5 mg/dL (0.20-1.00); TOTAL PROTEIN 6.9 g/dL (6.3-8.3)
[2018-12-18 15:05] LABS: BE 1.5 mmoll (-3.0-3.0); BLOOD TYPE ARTERIAL; HCO3-(ACT) 26.1 mmoll (20.0-26.0); METHB 1.1 % (0.0-1.5); O2(CT) 14.4 mL/dL (15.0-23.0); O2HB 94.8 % (95.0-99.0); PCO2(98.6) 43 mmHg (35-45); PO2(98.6) 82 mmHg (60-100); SAMPLE BLOOD; SAO2 97.3 % (95.0-100.0); THB 10.7 g/dL (11.5-17.4)
[2018-12-18 15:08] LABS: ALLEN TEST YES; MODALITY CANNULA
[2018-12-18] MEDS ORDERED: ROCEPHIN IV ONE (15:35)
[2018-12-18] MEDS ORDERED: DUONEB (A & A) INH ONE (15:37)
[2018-12-18] MEDS ORDERED: SOLU-MEDROL IV ONE (15:37)
[2018-12-18] MEDS ORDERED: ZITHROMAX 500 MG/NS 500 MG/250 ML IVPB IV SCH (16:15)
[2018-12-18] MEDS: DUONEB (A & A) INH SCH ×2 (19:46→23:09)
[2018-12-18] MEDS: LYRICA PO SCH (20:33)
[2018-12-18] MEDS: XARELTO PO SCH (20:34)
[2018-12-18] MEDS: ZITHROMAX 500 MG/NS 500 MG/250 ML IVPB IV SCH (20:34)
[2018-12-18] MEDS: ROCEPHIN 1 GM in NS 50 ML IV SCH (22:44)
[2018-12-19] MEDS: TYLENOL PO PRN ×3 (02:54→17:39)
[2018-12-19] MEDS: SYNTHROID PO SCH (07:18)
[2018-12-19] MEDS: DUONEB (A & A) INH SCH ×4 (07:37→19:22)
[2018-12-19] MEDS: ZOLOFT PO SCH (08:41)
[2018-12-19] MEDS: NORVASC PO SCH (08:41)
[2018-12-19] MEDS: LANOXIN PO SCH (08:42)
[2018-12-19] MEDS: LYRICA PO SCH ×2 (08:42→21:41)
[2018-12-19] MEDS: AVAPRO PO SCH (08:42)
--- NOTE | 2018-12-19 13:53 | PROGRESS NOTE ---
DATE: 12/19/2018 SUBJECTIVE: The patient has COPD with some chronic heart failure issues, admitted with an aggravation of his symptoms with no fever, normal white count and fairly unchanged x-ray with adequate blood gases, negative enzymes and workup. He is rattling particularly loudly and seems to be in pretty good spirits. OBJECTIVE: He is afebrile. Pulse 73, respiratory rate 18, blood pressure 130/55. Previously, his 2 L gases show pO2 at 82, pCO2 of 43, pH of 7.4. ASSESSMENT AND PLAN: We will continue to give him the antibiotics and have him sit around and wait. He apparently was not cultured from the emergency room. cc: Prasanth Leigh MD
--- NOTE | 2018-12-19 14:06 | HISTORY AND PHYSICAL ---
HISTORY OF PRESENT ILLNESS: This is an 83-year-old white male patient of mine from the clinic who presented to the emergency room the day of admission complaining of pressure-like chest pain associated with his shortness of breath being more intense than it typically is. Also a cough when all this began approximately 2 hours prior to his presentation. He has a background history of COPD, CHF, atrial fibrillation. He is on home O2 and nebulized therapy. The pressure of his chest was centrally located. No specific radiation and had been present for a couple of hours prior to him receiving care here at the hospital. There were no particular activities that might have precipitated this. He was given an aspirin in the ER. No other medications. He denies any previous chest pain. On workup, he has a background of atrial fibrillation, and he is on Xarelto 20, history of atrial fibrillation on digoxin 0.25, irbesartan 150 and amlodipine 2.5 for his blood pressure, Zoloft for his depression, and he uses nebulizer treatment therapies, levothyroxine and Lyrica. REVIEW OF SYSTEMS: He denies any fevers or chills. No symptoms of a head cold, runny nose, sore throat or earache. Just a rattling cough. Breath sounds are diminished bilaterally. Increased AP diameter and rhonchi. Neck with no masses. Carotids without bruits. Cardiovascular: Regular rate and rhythm. No murmurs, gallops, clicks or rubs. No PND or orthopnea. No claudication. Gastrointestinal: No belly pain, nausea, vomiting, diarrhea, melena or hematochezia. Genitourinary: Some urinary tract obstructive symptoms, otherwise negative. No specific joint pains. He is generalized, complaining of his skeleton. Skin with no rashes. Head: No vertigo, syncope or seizure disorder. Psychiatric: No history of any psychiatric illness other than some anxiety. No history of asthma. No specific allergies. PAST MEDICAL HISTORY: He has had atrial fibrillation, CHF, hypertension, COPD, cancer of the prostate and a previous stroke and skin cancer. He has had a TURP. SOCIAL HISTORY: He lives with his . Quit smoking over a year ago. MEDICATIONS: He is not on any particular medications. PHYSICAL EXAMINATION: VITAL SIGNS: When he arrived in the hospital, his temperature was not elevated at 97, pulse was 52, respiratory rate 18, blood pressure 143/62, O2 saturation was 93%. HEENT: Head was normocephalic. Some temporal wasting. Nares patent. Oropharynx negative. He has saber teeth. NECK: Without bruits or jugular venous distention. CHEST: Increased AP diameter. Diminished breath sounds bilaterally. Rhonchi with a rattling cough. CARDIOVASCULAR: Regular rate and rhythm. No murmurs, gallops, clicks or rubs. No tachyarrhythmias. ABDOMEN: Soft. No hepatosplenomegaly. No CVA tenderness. EXTREMITIES: Negative for cyanosis, clubbing or edema. NEUROLOGICAL: Intact. DIAGNOSTIC DATA: White count on admission was 5930, hematocrit 34.5, platelet count 210. Blood gas showed pH of 7.4, pCO2 of 43, pO2 of 82 on 2 L. Carboxyhemoglobin was 1.5. Chemistries showed sodium 130, chloride 92, potassium 4.7, carbon dioxide 26, BUN was 19, creatinine 1.2, GFR was 58. BUN to creatinine ratio of 16. Glucose 95. Calcium 9.3, total bilirubin 0.5, AST was 17, ALT was 8, alkaline phosphatase 99. CK was 37. Cardiac enzymes were all negative. ProBNP was 2464. Albumin and protein were negative. His ProBNP's have all been lower than this in the past since 2014. ADMITTING DIAGNOSIS: Chronic obstructive pulmonary disease. Chest x-ray shows pleural thickening. Increased opacity in the left base. There are loculated pleural effusions on the right with interstitial opacities and apparent atelectasis in the right base, previously seen 11/23/2018. Heart remains large. Right pleural effusion, interstitial pulmonary edema and fibrosis. He was placed on medication. He was placed on albuterol, ipratropium, amlodipine, azithromycin 500 IV q.24, ceftriaxone 1 g q.24, digoxin, irbesartan 150, levothyroxine 25, pregabalin 150 b.i.d., Xarelto 20, and Zoloft. We will continue to follow the patient. cc: Prasanth Leigh MD
[2018-12-19] MEDS: XARELTO PO SCH (17:23)
[2018-12-19] MEDS: ZITHROMAX 500 MG/NS 500 MG/250 ML IVPB IV SCH (21:42)
[2018-12-19] MEDS: ROCEPHIN 1 GM in NS 50 ML IV SCH (22:50)
[2018-12-20] MEDS: TYLENOL PO PRN (02:22)
[2018-12-20] MEDS: DUONEB (A & A) INH SCH ×5 (05:08→19:44)
--- NOTE | 2018-12-20 09:56 | Diag Imaging Result Doc PS360 ---
EXAM: CHEST-PORTABLE HISTORY: cough TECHNIQUE: Chest single view COMPARISON: 12/18/2018 FINDINGS: There are small bilateral pleural effusions with bibasilar atelectasis and infiltrates. The heart is enlarged. Likely basilar fibrosis. Tortuous aorta. Scattered granuloma. IMPRESSION: Persistent basilar infiltrates and atelectasis with small pleural effusions. Electronically signed by Tone Zavala 12/20/2018 9:54 AM
[2018-12-20 10:15] LABS: BASO# 0.02 X1000 (0.0-0.2); BASO% 0.2 % (0.0-0.8); EOS# 0.14 X1000 (0.0-0.7); EOS% 1.7 % (0.0-10.0); HEMATOCRIT 33.2 % (42.0-52.0); IMM GRAN# 0.01 X1000 (0.0-0.04); IMM GRAN% 0.1 % (0.0-0.5); LYMPH# 0.53 X1000 (1.2-3.4); LYMPH% 6.5 % (20.5-51.1); MCH 27.6 PG (27-31); MCHC 33.1 g/dL (33-37); MCV 83.2 FL (81-99); MONO# 0.59 X1000 (0.11-0.59); MONO% 7.2 % (1.7-9.3); MPV 10.5 FL (7.4-10.4); NEUT# 6.87 X1000 (1.4-6.5); NEUT% 84.3 % (42.2-75.2); PLT 195 X1000 (130-400); RBC 3.99 XMIL (4.7-6.1); RDW 16.3 % (11.5-14.5); WBC 8.16 X1000 (4.8-10.8)
[2018-12-20 10:30] LABS: AGAP 9; ALBUMIN 3.9 g/dL (3.5-5.0); ALKALINE PHOSPHATASE 77 U/L (32-122); BUN 26 mg/dL (8-22); CHLORIDE 97 mmol/L (98-107); COSMO 270; ESTIMATED GFR > 60; GLUCOSE 120 mg/dL (70-104); GOT 13 U/L (10-34); GPT 7 U/L (10-44); POTASSIUM 4.8 mmol/L (3.5-5.1); SODIUM 132 mmol/L (136-145); TCO2 27 mmol/L (25-35); TOTAL PROTEIN 6.7 g/dL (6.3-8.3)
--- NOTE | 2018-12-20 10:50 | Diag Imaging Result Doc PS360 ---
EXAM: GI SERIES WITH BA SWALLOW HISTORY: Gurgling, aspiration TECHNIQUE: Upper GI exam with thin barium. Fluoroscopy time is one minute 51 seconds. Total dose is 3971 cGy square centimeter. COMPARISON: None. FINDINGS: 14 films taken. No obstruction to barium with passage passage of barium through the esophagus into the stomach with emptying into the duodenum. Tertiary contractions to the esophagus. No esophageal stricture. Moderate to large hiatal hernia. No stomach or duodenal abnormality identified. Severe atherosclerosis. Collapse of the T12 or L1 vertebra. IMPRESSION: Tertiary contractions with a moderate to large hiatal hernia Electronically signed by Tone Zavala 12/20/2018 10:47 AM
[2018-12-20] MEDS: SYNTHROID PO SCH (13:49)
[2018-12-20] MEDS: AVAPRO PO SCH (13:49)
[2018-12-20] MEDS: LANOXIN PO SCH (13:49)
[2018-12-20] MEDS: ZOLOFT PO SCH (13:50)
[2018-12-20] MEDS: NORVASC PO SCH (13:50)
[2018-12-20] MEDS: LYRICA PO SCH ×2 (13:50→20:58)
[2018-12-20 14:35] LABS: OCCULT BLOOD 1 NEGATIVE (NEGATIVE)
[2018-12-20] MEDS: XARELTO PO SCH (17:24)
[2018-12-20] MEDS: ZITHROMAX 500 MG/NS 500 MG/250 ML IVPB IV SCH (20:57)
[2018-12-20] MEDS: ROCEPHIN 1 GM in NS 50 ML IV SCH (23:00)
[2018-12-21] MEDS: TYLENOL PO PRN (01:19)
[2018-12-21] MEDS: DUONEB (A & A) INH SCH ×6 (03:37→23:51)
[2018-12-21] MEDS: SYNTHROID PO SCH ×2 (05:45→06:09)
[2018-12-21] MEDS: NORVASC PO SCH (08:32)
[2018-12-21] MEDS: LANOXIN PO SCH (08:32)
[2018-12-21] MEDS: AVAPRO PO SCH (08:32)
[2018-12-21] MEDS: ZOLOFT PO SCH (08:32)
[2018-12-21] MEDS: LYRICA PO SCH ×2 (08:32→20:32)
--- NOTE | 2018-12-21 13:59 | Diag Imaging Result Doc PS360 ---
EXAM: CT THORAX W/O CONTRAST 12/21/2018 HISTORY: pneumonia TECHNIQUE: This exam was performed using automated exposure control, adjustment of mA or kV according to patient size, and/or use of iterative reconstruction technique. COMMENT: The thoracic aorta is somewhat unwound and partially calcified with dilatation of the ascending aorta to slightly over 5 cm. At the time the previous study of 11/13/2016 this measured 5.3 cm. There are calcifications in the mitral valve annulus and coronary arteries. There is a large hiatal hernia. There is chronic pleural thickening and loculated fluid laterally in the right lower chest which has not changed significantly since 11/13/2016. The pleural fluid collection and thickening present on the left side has improved since the previous study. There continues to be interstitial opacity in the left costophrenic angle. There are linear scars present in the right middle lower and upper lobe. There is severe bullous emphysema in the upper lung zones. There is some slight increase in opacity in the mid left lower lobe compared to the previous study. The possibility of superimposed pneumonia on the pleural and parenchymal fibrosis cannot be excluded. There are some scattered calcified pulmonary nodules. There is no evidence of significant adenopathy. There is borderline splenomegaly. IMPRESSION: Pleural and parenchymal fibrosis, COPD, with superimposed pneumonia left lower lobe. Electronically signed by Errol Martinez 12/21/2018 1:57 PM
[2018-12-21] MEDS: XARELTO PO SCH (17:10)
--- NOTE | 2018-12-21 19:02 | PROGRESS NOTE ---
DATE: 12/21/2018 SUBJECTIVE: This is an 83-year-old male with COPD, valvular heart disease, and history of prostate cancer. He was admitted for worsening cough and shortness of breath. IMAGING: Today he had a CT of the chest, and the CT of the chest showed that the patient's thoracic aorta is somewhat unwound and partially calcified with dilatation of the ascending aorta to slightly over 5 cm. On the previous study this measured 5.3 cm. Mitral valve annulus and coronary artery calcification. There is a large hiatal hernia that we already know about. There is chronic pleural thickening and loculated fluid laterally in the right lower chest that has not changed since 11/13/2016. The pleural fluid collection and thickening present on the left side have improved since the previous study. There continues to be interstitial opacity in the left costophrenic angle. There are linear scars present in the right middle lobe and upper lobe. There are several bullous emphysemas in the upper lung zone, very severe. There is some slight increase in opacity of the mid left lower lobe compared to the previous study. The possibility of superimposed pneumonia on the pleural parenchymal fibrosis cannot be excluded. Scattered calcified pulmonary nodules. No evidence of significant adenopathy. OBJECTIVE: Vital Signs: Today his temperature is 97.8, pulse 103, respiratory rate 18, BP 123/47, O2 reportedly 100% earlier in the day. LABORATORY DATA: No new labs as of yet. ASSESSMENT/PLAN: We are continuing his current treatment. He seems better. He is not rattling as much. We think as an outpatient we are going to get his esophagus, which we had studied the other day with a barium swallow, seen about and evaluated. Until then, will continue his medications. cc: Prasanth Leigh MD
[2018-12-21] MEDS: ZITHROMAX 500 MG/NS 500 MG/250 ML IVPB IV SCH (20:32)
[2018-12-21] MEDS: ROCEPHIN 1 GM in NS 50 ML IV SCH (21:54)
[2018-12-22] MEDS: SYNTHROID PO SCH (06:48)
[2018-12-22] MEDS: DUONEB (A & A) INH SCH ×2 (08:01→11:30)
[2018-12-22] MEDS: LYRICA PO SCH (08:30)
[2018-12-22] MEDS: AVAPRO PO SCH (08:30)
[2018-12-22] MEDS: NORVASC PO SCH (08:30)
[2018-12-22] MEDS: ZOLOFT PO SCH (08:30)
[2018-12-22] MEDS: LANOXIN PO SCH (08:33)
[2018-12-22 11:21] VITALS: BP 140/64
[2018-12-22] MEDS ORDERED: ZITHROMAX PO SCH (21:00)
--- NOTE | 2019-01-15 08:08 | PROGRESS NOTE ---
DATE: 12/20/2018 His temperature was 98.0 pulse was 76, respiratory rate 18, blood pressure was 90/60, O2 saturation was 100% on 2 L. On laboratory data, his CBC showed white count was 8116, hematocrit was 33.2, platelet count was 195. Sodium was 132, potassium 4.8, chloride 97, CO2 was 27, BUN was 26, creatinine 1. Glucose 120, calcium 9, total bilirubin 0.3, AST was 13, ALT was 77. Serial cardiac enzymes were all negative through 12/18/2018. BNP was slightly elevated on 12/18/2018 at 24.6. On 12/20/2018, he also got an upper GI with barium swallow. We felt that he was probably aspirating some. His chest x-ray showed there were small bilateral pleural effusions with bibasilar atelectasis and infiltrate. Heart was enlarged, likely fibrosis present. Tortuous aorta. The upper GI series with barium swallow showed no obstruction of barium with passage of barium through the esophagus, into the stomach, with emptying into the duodenum. Tertiary contractions to the esophagus were present. No stricture. Moderately large hiatal hernia. No stomach or duodenal abnormality. There was severe atherosclerosis, collapse of T12 and L1, and it may be that his hiatal hernia in his chest is compromising his breathing significantly. He may aspirate, although he did not appear to aspirate on this particular study. We are still continuing to treat him as a pneumonia. cc: Prasanth Leigh MD MTDD
--- NOTE | 2019-01-15 08:10 | PROGRESS NOTE ---
DATE: 12/22/2018 On 12/22/2018, he was afebrile, pulse was 64, respiratory rate was 18, blood pressure 140/64, O2 saturation on 2 L was 91%. His vital signs were stable. He still continues to cough but seemingly better. I think half the time he has COPD, and he has aspiration issues. He has hiatal hernia compromising his thorax. He seems to be improving now. There was no microbiology done on this patient during the hospital stay. Continue his ceftriaxone, azithromycin, Xarelto, digoxin, and regular blood pressure medications. We will see how he does. cc: Prasanth Leigh MD
--- NOTE | 2019-01-15 08:51 | HISTORY AND PHYSICAL ---
HISTORY OF PRESENT ILLNESS: The patient presented to the emergency room complaining of chest pain, shortness of breath, a cough of 2 hours' duration, past history of COPD, CHF, atrial fibrillation, CA of the prostate, who is on home O2. He was alert and oriented when he arrived to the ER. He had a CBC done in the emergency room, and hematocrit was 34.5, hemoglobin 11.7, white count 5930, platelet count 210,000. Electrolytes showed his sodium was 130, potassium 4.7, chloride 9.2, CO2 of 26, BUN of 19, creatinine 1.2, glucose was 95. His EKG was read as atrial fibrillation, right bundle, otherwise negative. He did not have any significant findings on his chest x-ray other than pleural thickening and increased interstitial opacity in the base. Seemed to be a lobulated pleural effusion on the right with interstitial opacity and apparent atelectasis in the right base. These findings were also present 11/23/2018. Heart size remained large. Impression was right pleural effusion, interstitial pulmonary edema and fibrosis. He was admitted as a COPD exacerbation. ALLERGIES: He has no known allergies. MEDICATIONS: Xarelto 20 for his atrial fibrillation, digoxin 0.25 likewise for his atrial fibrillation, irbesartan 150 mg or hypertension, Norvasc 2.5 for hypertension but currently weaning him, as this gives him a significant amount of edema. He is also on thyroid replacement with Synthroid 25 mcg daily. He has Tylenol p.r.n., he uses albuterol nebulizers p.r.n. He is also on Lyrica b.i.d. and Zoloft 150. REVIEW OF SYSTEMS: He has had no significant weight gain or weight loss. No fever, chills or night sweats. Eyes: No change in visual acuity. No increased pressure. No glaucoma, no cataracts that he knows of. Ears, nose and throat: He has no history of sinusitis, otitis or rhinitis. Cardiovascular: He denies any significant chest pain. He has had some fluid but nothing significant over his previous amounts. Respiratory: He has a chronic cough. He is short of breath with limited range of motion but still drives. Gastrointestinal: Abdominal pain is not an issue. No diarrhea, nausea or vomiting. No melena or hematochezia. Genitourinary: No dysuria, polyuria or pyuria. He has some lower urinary tract obstructive symptoms. He has had a previous gallbladder resection for prostate cancer. He has some problems with urinary incontinence. Musculoskeletal: He has some chronic pain in his back. Skin: No rashes. No lesions of any significance. Neurologic: He denies dizziness, vertigo, seizure activity, syncope. Psychiatric: No psychiatric illnesses. Endocrine: He is on thyroid hormone replacement. Hematologic/lymphatic: No bleeding or clotting disorders. He is on anticoagulants for his atrial fibrillation. Allergies: No history of significant asthma or hay fever. PAST MEDICAL HISTORY: He has had atrial fibrillation, CHF and hypertension in the past. COPD, cancer of the prostate. Several skin cancers. PHYSICAL EXAMINATION: VITAL SIGNS: His blood pressure in the ER was not recorded on the chart, but his initial vital signs were temperature of 97, pulse 52, respiratory rate 18, blood pressure 143/62, O2 saturation 93%. HEENT: Head was normocephalic. Eyes were PERRL. EOMs intact. Sclerae clear. NECK: Midline trachea. No lymphadenopathy. Carotids without bruits. No jugular venous distention. RESPIRATORY: Some rhonchi throughout his lung connelly. No consolidative findings. CARDIOVASCULAR: Irregular rhythm and rate. GASTROINTESTINAL: Soft. No hepatosplenomegaly. No CVA tenderness. Positive bowel sounds. EXTREMITIES: Some trace edema. Otherwise negative. SKIN: Clear. NEUROLOGICAL: Symmetric. ADMITTING DIAGNOSES: 1. Chronic obstructive pulmonary disease exacerbation. 2. History of congestive heart failure. 3. History of hypertension. 4. History of cancer of the prostate. 5. History of thyroid replacement. cc: Prasanth Leigh MD
--- NOTE | 2019-01-22 17:54 | DISCHARGE SUMMARY ---
ADMISSION DATE: 12/18/2018 DISCHARGE DATE: 12/22/2018 HISTORY OF PRESENT ILLNESS: This is an 83-year-old patient of mine who has COPD, CHF, atrial fibrillation as a background, on home nebulizer, as well as home oxygen. He presents complaining of some chest central discomfort and some shortness of breath, particularly with activity. He was given an aspirin in the ER. No other medicines. He is also on Xarelto for history of atrial fibrillation, on digoxin, irbesartan 150, amlodipine 25, Zoloft for depression, nebulizer treatments, levothyroxine, and Lyrica. PHYSICAL EXAM: Showed a typical COPD with tripod position and increased AP diameter. He was breathing with rhonchi rapidly. O2 saturation was 93. Head and neck were unremarkable. DIAGNOSTIC DATA: CT of the chest showed pleural and parenchymal fibrosis; COPD and possible superimposed pneumonia. Upper GI barium swallow showed tertiary contractions with a moderate to large hiatal hernia. Chest x-ray on 12/18/2018 showed a right pleural effusion; interstitial pulmonary edema; and fibrosis, perhaps. On 12/20/2018 there was persistent basilar infiltrates and atelectasis with small effusions. Microbiology was negative. Stool was negative. Blood gases on 12/18/2018 showed pH of 7.4, pCO2 43, pO2 82. Lactate 0.3. Coagulation studies were normal. Digoxin level was 1.1. CBC showed hematocrit of 34 to 33, white count 5930 to 8160. Chemistries: Sodium 130, potassium 4.7, chloride 92, CO2 26, BUN 19, creatinine 1.2, glucose 95, calcium 9.3, total bilirubin 0.5, AST 17, ALT 8, alkaline phosphatase 99. Multiple troponin negative. BNP was slightly elevated. HOSPITAL COURSE: The patient was hospitalized from 12/18/2018 to 12/22/2018. During this hospital stay he received Albuterol, ipratropium, methylprednisolone, azithromycin, ceftriaxone, and some Xarelto. Also, levothyroxine, sertraline, and continued on his amlodipine and irbesartan. We think that some of his problems is that he may have, in addition to his COPD and addition to his CHF, a large hiatal hernia that is causing some compromised space in his thorax. We may pursue that if he does not continue to get better. He also has significant atherosclerosis throughout his aorta, but otherwise is negative. He improved on the antibiotics. We discharged him and he is going to follow up in the office. cc: Prasanth Leigh MD MTDD
== END 2018-12-22 15:10 | disposition home or self-care (01) | DRG 190 ==
LOC: P.ED 13:35 → P.MEDSURG 13:36
PROVIDERS: ADMIT Internal Medicine; ATTEND Internal Medicine

== ENCOUNTER 2019-04-27 09:01 | Inpatient (IN) ==
[~2019-04-27 09:01] MED LIST: DUONEB (A & A) INH ONE; NS 1,000 ML IV ONE; SOLU-MEDROL IV ONE; VANCOMYCIN 1 GM/NS 1 GM/250 ML IVPB IV ONE; ZOSYN 4.5 GM in NS 100 ML IV ONE
[2019-04-27 09:30] LABS: BE 0.2 mmoll (-3.0-3.0); BLOOD TYPE ARTERIAL; HCO3-(ACT) 25.1 mmoll (20.0-26.0); O2(CT) 16.6 mL/dL (15.0-23.0); O2HB 96.1 % (95.0-99.0); PCO2(98.6) 33 mmHg (35-45); PO2(98.6) 108 mmHg (60-100); SAMPLE BLOOD; THB 12.2 g/dL (11.5-17.4); pH(98.6) 7.46 (7.35-7.45)
[2019-04-27 09:38] LABS: BASO# 0.03 X1000 (0.0-0.2); BASO% 0.3 % (0.0-0.8); EOS# 0.14 X1000 (0.0-0.7); EOS% 1.4 % (0.0-10.0); HEMOGLOBIN 12.2 g/dL (14.0-18.0); IMM GRAN# 0.02 X1000 (0.0-0.04); IMM GRAN% 0.2 % (0.0-0.5); LYMPH# 0.63 X1000 (1.2-3.4); LYMPH% 6.2 % (20.5-51.1); MCH 25.3 PG (27-31); MCHC 31.3 g/dL (33-37); MCV 80.7 FL (81-99); MONO# 0.94 X1000 (0.11-0.59); MONO% 9.2 % (1.7-9.3); MPV 10.1 FL (7.4-10.4); NEUT# 8.48 X1000 (1.4-6.5); NEUT% 82.7 % (42.2-75.2); PLT 349 X1000 (130-400); RBC 4.83 XMIL (4.7-6.1); WBC 10.24 X1000 (4.8-10.8)
--- NOTE | 2019-04-27 09:45 | Diag Imaging Result Doc PS360 ---
EXAM: CHEST-1 VIEW - 04/27/2019 HISTORY: COPD exacerbation, fever, ams TECHNIQUE: Portable chest one view COMPARISON: 03/31/2019 FINDINGS: Heart size appears mildly enlarged and stable. There is tortuosity of the thoracic aorta similar to prior. There are right upper lobe granulomas from old granulomatous disease similar to prior. There is apparent bilateral lower lung interstitial fibrosis similar to prior. There is stable right pleural thickening. Compared to prior, there are no acute changes identified. There is no pneumothorax identified. IMPRESSION: Stable exam compared to 04/10/2019. Mild cardiomegaly. Bilateral lower lung interstitial fibrosis. Right pleural thickening. Electronically signed by Carlos Benjamin 04/27/2019 9:42 AM
[2019-04-27 09:49] LABS: INR 3.18; PROTIME 34.6 Seconds (11.0-16.0)
[2019-04-27 09:50] LABS: PTT 70.7 Seconds (22.3-41.8)
[2019-04-27 09:57] LABS: ALLEN TEST YES; MODALITY CANNULA
[2019-04-27 10:15] LABS: INFLUENZA A NEGATIVE (NEGATIVE); INFLUENZA B NEGATIVE (NEGATIVE)
--- NOTE | 2019-04-27 10:23 | EKG Report ---
Test Performed on : 04/27/2019 09:24:43 AM Test Reason : SOB Blood Pressure : / mmHG Vent. Rate : 076 BPM Atrial Rate : 052 BPM P-R Int : 000 ms QRS Dur : 142 ms QT Int : 400 ms P-R-T Axes : 000 104 205 degrees QTc Int : 450 ms Atrial fibrillation. Right bundle branch block T wave abnormality, consider inferior ischemia Abnormal ECG No previous ECGs available Unconfirmed Result
[2019-04-27 10:37] LABS: BILIRUBIN URINE NEGATIVE (NEGATIVE); BLOOD URINE NEGATIVE (NEGATIVE); CLARITY CLEAR (CLEAR); COLOR YELLOW; GLUCOSE URINE NEGATIVE (NEGATIVE); KETONE URINE NEGATIVE (NEGATIVE); LEUKOCYTES URINE TRACE (NEGATIVE); NITRITE URINE NEGATIVE (NEGATIVE); PH URINE 6.5; PROTEIN URINE TRACE mg/dL (NEGATIVE); SP GRAVITY URINE 1.015; UROBILINOGEN URINE NORMAL
[2019-04-27 10:38] LABS: URINE BACTERIA NEGATIVE /HFP; URINE CAST NONE SEEN /LPF; URINE CRYSTAL NONE SEEN /HPF; URINE EPITHELIAL CELLS <10 /HPF (<10); URINE RBC <10 /HPF (<10); URINE SOURCE CATH; URINE WBC <10 /HPF (<10); URINE YEAST PRESENT /HPF
[2019-04-27 11:00] LABS: AGAP 15; ALBUMIN 4.4 g/dL (3.5-5.0); ALKALINE PHOSPHATASE 82 U/L (32-122); BUN 33 mg/dL (8-22); CALCIUM 10.6 mg/dL (8.8-10.2); CHLORIDE 100 mmol/L (98-107); CK PROFILE 19 U/L (24-204); COSMO 279; CREATININE 1.1 mg/dL (0.7-1.2); ESTIMATED GFR > 60; GLUCOSE 91 mg/dL (70-104); GOT 21 U/L (10-34); GPT 12 U/L (10-44); POTASSIUM 5.3 mmol/L (3.5-5.1); SODIUM 136 mmol/L (136-145); TCO2 21 mmol/L (25-35); TOTAL PROTEIN 7.6 g/dL (6.3-8.3)
[2019-04-27] MEDS ORDERED: ROCEPHIN 1 GM in NS 50 ML IV ONE (11:27)
[2019-04-27] MEDS ORDERED: DIFLUCAN 400 MG/NS 400 MG/200 ML IVPB IV ONE (11:27)
--- NOTE | 2019-04-27 11:36 | PROVIDER DOCUMENTATION ---
This chart was entered by Sofía Ramos Scribe, acting as scribe for Kavon Mauro MD. HPI-General Adult - General Chief Complaint: Weakness Stated Complaint: WEAKNESS Time Seen by Provider: 04/27/19 09:03 Source: patient, family (), EMS (first response) Allergies/Adverse Reactions: Patient Allergies Allergy/AdvReac Type Severity Reaction Status Date / Time No Known Allergies Allergy Verified 04/27/19 09:16 Home Medications: Home Medication List Medication Instructions Recorded Confirmed Last Taken Type Amlodipine Besylate 2.5 mg PO DAILY 04/23/19 04/23/19 04/22/19 History Levothyroxine Sodium 25 mcg PO DAILY 04/23/19 04/23/19 04/22/19 History Losartan Potassium 100 mg PO DAILY 04/23/19 04/23/19 04/22/19 History Omeprazole 40 mg PO DAILY 04/23/19 04/23/19 04/22/19 History Pregabalin 150 mg PO BID 04/23/19 04/23/19 04/22/19 History Rivaroxaban [Xarelto] 20 mg PO DAILY 04/23/19 04/23/19 04/22/19 History Sertraline HCl 150 mg PO DAILY 04/23/19 04/23/19 04/22/19 History Unobtainable [Home Meds 04/27/19 04/27/19 Unknown History Unobtainable] - History of Present Illness -Gen Adult Nature of Presenting Problems: 84 yowm presents to the ed via ems (first response)for worsening generalized weakness, ams, cough, decreased activity and appetite for 1 week. is with pt at bedside and pt is ill appearing Location of Pain/Injury: reports: generalized (weakness) Pain Radiation: reports: no radiation Quality of Pain: reports: aching (and weakaness) Severity: reports: moderate Onset/Duration: reports: 1 week ago Timing: reports: still present, constant, getting worse Modifying Factors: improves with: nothing Associated Symptoms: reports: cough, fatigue, loss of appetite, malaise, muscle aches, weakness, other (ams). denies: back/neck pain, chest pain, diarrhea, nausea, vomiting Similar Symptoms Previously?: Yes Recently seen or treated by another doctor?: No Review of Systems - Adult - REVIEW OF SYSTEMS - ADULT Constitutional: reports: see HPI, fatique. denies: chills, fever Eyes: reports: no symptoms reported Ears, Nose, Mouth & Throat: reports: no symptoms reported Cardiovascular: denies: chest pain, syncope Respiratory: reports: see HPI, cough, wheezing Gastrointestinal: reports: see HPI, poor appetite. denies: diarrhea, nausea, vomiting Genitourinary: reports: no symptoms reported Musculoskeletal: reports: see HPI, muscle aches, muscle weakness. denies: back pain, neck pain Integumentary: reports: no symptoms reported Neurological: reports: see HPI, other (ams). denies: dizziness/vertigo, headache/migraines Psychiatric: reports: no symptoms reported Endocrine: reports: no symptoms reported Hematologic/Lymphatic: reports: no symptoms reported Allergic/Immunologic: reports: no symptoms reported All Other Systems: Reviewed and Negative Past History - Adult - PAST MEDICAL HISTORY-ADULT Review of Records: reports: Old Records Reviewed, Nursing Assessment Review, Medications Reviewed, Social history reviewed & non-contributory. Major Childhood Illnesses: reports: denies history Cardiovascular: reports: A-Fib, CHF, HTN Respiratory: reports: COPD Gastrointestinal: reports: cancer (prostate) Genitourinary: reports: prostate cancer Musculoskeletal: reports: denies history Neurological: reports: CVA Psychiatric: reports: denies history Endocrine/Immune: reports: denies history Other Conditions: reports: other cancer (skin) - PRIOR SURGERIES/PROCEDURES Surgical/Procedure History: reports: other (TURP) - IMMUNIZATION STATUS Childhood Immunizations: See Nurse Assessment Flu Vaccine: See Nurse Assessment - FAMILY HISTORY Family History: reviewed, not pertinent - SOCIAL HISTORY Smoking: quit greater than 1 year Substance Use: alcohol Alcohol Use Frequency: every day Number of drinks per typical drinking period:: 2 drinks Living Situation: family Physical Exam-General - PHYSICAL EXAM-ADULT Exam Limited by: pt is confused gives report to staff Initial Vital Signs Reviewed: Yes - CONSTITUTIONAL General Appearance: alert, mild distress - EYES Eyes: PERRL/EOMI - HEAD, EARS, NOSE, MOUTH & THROAT HENMT: dental decay. negative: moist mucous membranes (dry oral) - NECK Neck: non-tender, normal inspection - RESPIRATORY Respiratory: respiratory distress (mild), wheezing, other (wet cough heard on exam) - CARDIOVASCULAR Cardiovascular: normal peripheral pulses, regular rate, rhythm - CHEST (BREASTS) Chest/Breast: deferred - GASTROINTESTINAL (ABDOMEN) Abdominal Exam: normal bowel sounds, non tender, soft, no organomegaly, no pulsatile mass - GENITOURINARY Male Genitalia: deferred Rectal Exam: deferred Hemoccult Exam: deferred - LYMPHATIC Lymphatic: no adenopathy - MUSCULOSKELETAL Back Exam: no CVA tenderness, no vertebral tenderness Extremity: normal inspection, no pedal edema, no calf tenderness, normal capillary refill, pelvis stable - SKIN Integumentary: warm/dry, pallor. negative: normal turgor (poor skin turgor) - NEUROLOGIC Neurologic: grossly normal - PSYCHIATRIC Psych/Mental Status: normal mood/affect Progress - PLAN OF CARE/RESULTS Progress/Plan/Lab Results: Vital Signs - 8 hr 04/27/19 08:58 04/27/19 09:00 Temperature 98.6 F Pulse Rate 69 65 Respiratory Rate 18 18 Blood Pressure 150/80 O2 Sat by Pulse Oximetry 96 99 Orders Category Date Time Status Cardiac Monitoring DIRECTED Care 04/27/19 08:56 Active IV Insertion ORDERED Care 04/27/19 08:56 Active Nursing- Obtain EKG once Care 04/27/19 08:57 Active CHEST-1 VIEW [RAD] Stat Exams 04/27/19 08:56 Ordered ABG [RESP] Routine Lab 04/27/19 08:57 Ordered BLOOD CULTURE [BLDCUL] Stat Lab 04/27/19 09:28 Ordered CBC WITH DIFF [HEME] Stat Lab 04/27/19 09:28 Ordered CK PROFILE [SP CHEM] Stat Lab 04/27/19 09:28 Ordered COMPREHENSIVE METABOLIC PANEL [CHEM] Stat Lab 04/27/19 09:[address] Stat Lab 04/27/19 08:58 Uncollected LACTATE, PLASMA [CHEM] Q3H Lab 04/27/19 09:28 Ordered LACTATE, PLASMA [CHEM] Q3H Lab 04/27/19 12:00 Uncollected LACTATE, PLASMA [CHEM] Q3H Lab 04/27/19 15:00 Uncollected MAGNESIUM [CHEM] Stat Lab 04/27/19 09:28 Ordered PRO B-NATRIURETIC PEPTIDE Stat Lab 04/27/19 09:29 Ordered PROTIME WITH INR [COAG] Stat Lab 04/27/19 09:28 Ordered PTT [COAG] Stat Lab 04/27/19 09:28 Ordered SPUTUM CULTURE WITH GRAM STAIN [RM] Stat Lab 04/27/19 08:57 Uncollected TROPONIN T Stat Lab 04/27/19 09:[address] W/POSS RFLX CULT [URINALYSIS] Stat Lab 04/27/19 08:56 Uncollected 0.9% Sodium Chloride Inj [Ns] 1,000 ml Med 04/27/19 08:58 Active IV 999 mls/hr Albuterol 2.5MG/Ipratrop 0.5MG [Duoneb (A & A)] Med 04/27/19 08:58 Discontinued 9 ml INH NOW ONE Methylprednisolone Sod Succ [Solu-Medrol] Med 04/27/19 08:58 Discontinued 125 mg IV NOW ONE Piperacillin/Tazobactam [Zosyn] 4.5 gm Med 04/27/19 08:58 Active 0.9% Sodium Chloride Inj [Ns] 100 ml IV NOW Vancomycin 1 gm/Ns Med 04/27/19 08:58 Active 1 gm in 250 ml IV NOW Aerosol Treatments Routine Oth 04/27/19 08:58 Active Aerosol Treatments Stat Oth 04/27/19 08:58 Active Oxygen Device Stat Oth 04/27/19 08:56 Active EKG [EKG] Stat Ther 04/27/19 08:57 Ordered mild respiratory alkalosis [address] mauro Result Diagrams: 04/27/19 09:17 04/27/19 09:17 - REASSESSMENT Reassessment #1 Time Reassessed: 09:37 Status: unchanged Reassessment Comment: FSBG 98 Reassessment #2 Time Reassessed: 11:33 Status: improving (After IVF and meds. Given Duoneb x 3, IV solumedrol, IV Vanc/ZOsyn for COPD exacerbation (and in case of sepsis). Given IV Fluconazole for yeast. Family feel uncomfortable with d/c home.) - EKG 1 Time of EKG reading by physician:: 09:24 EKG Read and Signed by:: Kavon Mauro EKG Interpretation (*Must complete 3 of following elements*): Abnormal Rate: 76 Rhythm: atrial fib [place]: normal QRS: RBB WI Interval: normal ST Wave: normal Comments: t wave abnormality, consider inferior ischemia - XRAY 1 XRAY: Bilateral XRAY Study: Chest Impression: See EMR Report (EXAM: CHEST-1 VIEW - 04/27/2019 HISTORY: COPD exacerbation, fever, ams TECHNIQUE: Portable chest one view COMPARISON: 03/31/2019 FINDINGS: Heart size appears mildly enlarged and stable. There is tortuosity of the thoracic aorta similar to prior. There are right upper lobe granulomas from old granulomatous disease similar to prior. There is apparent bilateral lower lung interstitial fibrosis similar to prior. There is stable right pleural thickening. Compared to prior, there are no acute changes identified. There is no pneumothorax identified. IMPRESSION: Stable exam compared to 04/10/2019. Mild cardiomegaly. Bilateral lower lung interstitial fibrosis. Right pleural thickening. Electronically signed by Carlos Benjamin 04/27/2019 9:42 AM 04/27/19 0942 Interpreting Physician: Carlos Benjamin MD Dictated Date/Time: 04/27/19937 cc: Kavon Mauro MD;) - CONSULTS/PCP/HOSPITALIST Notification #1 *Consult/PCP/Hospitalist*: Lu paged at 1132 Time Discussed: 11:36 Consult Disposition: Admit Departure - Departure Date of Disposition Decision: 04/27/19 Time of Disposition Decision: 11:36 DIAGNOSIS: COPD exacerbation, UTI (urinary tract infection), uncomplicated, Yeast UTI Altered mental status, unspecified Qualifiers: Altered mental status type: disorientation Qualified Code(s): R41.0 - Disorientation, unspecified CHF (congestive heart failure) Qualifiers: Heart failure type: combined systolic and diastolic Heart failure chronicity: acute on chronic Qualified Code(s): I50.43 - Acute on chronic combined systolic (congestive) and diastolic (congestive) heart failure Disposition: ADMITTED INPATIENT 09 Certified Medical Emergency: Emergent Condition: Fair - Critical Care Note This patient required my direct & personal management of CC.: Yes Total Time (mins): 42 Critical Care Statement: This patient required my direct personal management to treat or rule out processes, the absence of which, could potentiallly result in sudden, clinically significant life or limb threatening deterioration. Attestation - Physician/ FREIDA Attestation Patient care was provided by Advanced Practice Provider:: No The physician spent face to face time with patient:: Yes Advanced Practice Provider documentation review:: Supervising physician onsite and consulted in the evaluation and care of this patient. The physician did have a face to face encounter with the patient. This chart was documented by the indicated scribe, (Sofía Ramos Scribe) and accurately reflects the services I performed and decisions made by me, Kavon Mauro MD, as attested by the provider's signature.
[2019-04-27] MEDS ORDERED: ZOFRAN IV PRN (11:37)
[2019-04-27] MEDS ORDERED: TYLENOL PO PRN (11:37)
--- NOTE | 2019-04-27 12:13 | Diag Imaging Result Doc PS360 ---
EXAM: CT HEAD W/O CONTRAST 04/27/2019 HISTORY: altered mental status TECHNIQUE: This exam was performed using automated exposure control, adjustment of mA or kV according to patient size, and/or use of iterative reconstruction technique. COMMENT: There is moderate generalized cerebral atrophy. There is a lacune in the right thalamus. There is no evidence of mass effect, bleed, or abnormal extra-axial fluid collection. There is also a moderate degree of cerebellar atrophy. There are calcifications in the internal carotid arteries bilaterally. The calvarium is intact. There is mucosal thickening in both maxillary sinuses with near complete opacification of the right maxillary sinus. This was not the case on the previous study of 11/11/2016. IMPRESSION: Right maxillary sinusitis. Cerebral and cerebellar atrophy and chronic ischemic change. Electronically signed by Errol Martinez 04/27/2019 12:11 PM
[2019-04-27] MEDS ORDERED: DIFLUCAN 200 MG/NS 100 ML IV SCH (12:15)
[2019-04-27] MEDS: DUONEB (A & A) INH SCH ×3 (16:00→23:05)
[2019-04-27] MEDS: LYRICA PO SCH (21:59)
[2019-04-28] MEDS: DUONEB (A & A) INH SCH ×6 (03:38→23:16)
[2019-04-28] MEDS: PRILOSEC PO SCH (06:20)
[2019-04-28] MEDS: SYNTHROID PO SCH (06:21)
[2019-04-28] MEDS: ZOLOFT PO SCH (08:37)
[2019-04-28] MEDS: LYRICA PO SCH ×2 (08:37→21:44)
[2019-04-28] MEDS: COZAAR PO SCH (08:37)
[2019-04-28] MEDS: XARELTO PO SCH (08:37)
[2019-04-28] MEDS: NORVASC PO SCH (08:38)
[2019-04-28] MEDS ORDERED: CALMOSEPTINE OINTMENT TOP PRN (11:25)
[2019-04-29] MEDS: DUONEB (A & A) INH SCH ×6 (03:30→23:20)
[2019-04-29] MEDS: PRILOSEC PO SCH (06:50)
[2019-04-29] MEDS: SYNTHROID PO SCH (06:50)
[2019-04-29] MEDS: NORVASC PO SCH (09:12)
[2019-04-29] MEDS: LYRICA PO SCH ×2 (09:12→21:46)
[2019-04-29] MEDS: ZOLOFT PO SCH (09:13)
[2019-04-29] MEDS: COZAAR PO SCH (09:13)
[2019-04-29] MEDS: XARELTO PO SCH (09:13)
--- NOTE | 2019-04-29 09:16 | PROGRESS NOTE ---
DATE: 04/28/2019 This patient is a regular patient of mine who has COPD, who has chronic systolic and diastolic heart failure, who has gotten to the point where he is unable to get around because of debilitation, generalized weakness, was brought in to the ER for possible placement. He is getting to be very difficult to handle. His temperature is 97.5, pulse was 84, respiratory rate 16, BP 130/54, O2 saturation was 99% on 2 L. His microbiology, no growth in urine, blood cultures, but he is growing Enterobacter cloacae species cloacae out of his sputum. Again, no fever or chills. He generally lays in bed curled up in a position. He is very hard of hearing but if you talk loud enough he is with the program. He has not been having any significant symptoms, has to be fed, I fed him some ice cream yesterday and again today. We are waiting placement for a rehab on him. His physical exam is unremarkable. No edema. He is tachypneic, kyphotic, diminished breath sounds. cc: Prasanth Leigh MD
[2019-04-29 11:01] LABS: BASO# 0.03 X1000 (0.0-0.2); BASO% 0.3 % (0.0-0.8); EOS# 0.08 X1000 (0.0-0.7); EOS% 0.7 % (0.0-10.0); HEMATOCRIT 34.7 % (42.0-52.0); HEMOGLOBIN 10.7 g/dL (14.0-18.0); IMM GRAN# 0.02 X1000 (0.0-0.04); IMM GRAN% 0.2 % (0.0-0.5); LYMPH# 0.63 X1000 (1.2-3.4); LYMPH% 5.3 % (20.5-51.1); MCH 25.2 PG (27-31); MCHC 30.8 g/dL (33-37); MCV 81.8 FL (81-99); MONO# 1.06 X1000 (0.11-0.59); MPV 9.9 FL (7.4-10.4); NEUT% 84.5 % (42.2-75.2); PLT 349 X1000 (130-400); RBC 4.24 XMIL (4.7-6.1); RDW 16.2 % (11.5-14.5); WBC 11.82 X1000 (4.8-10.8)
[2019-04-29 11:18] LABS: AGAP 10; ALKALINE PHOSPHATASE 66 U/L (32-122); BUN 28 mg/dL (8-22); CALCIUM 9.8 mg/dL (8.8-10.2); CHLORIDE 100 mmol/L (98-107); COSMO 276; CREATININE 1.1 mg/dL (0.7-1.2); ESTIMATED GFR > 60; GLUCOSE 103 mg/dL (70-104); GOT 18 U/L (10-34); GPT 13 U/L (10-44); POTASSIUM 4.6 mmol/L (3.5-5.1); SODIUM 135 mmol/L (136-145); TCO2 25 mmol/L (25-35); TOTAL PROTEIN 6.6 g/dL (6.3-8.3)
[2019-04-29 11:22] LABS: BILIRUBIN URINE NEGATIVE (NEGATIVE); BLOOD URINE NEGATIVE (NEGATIVE); CLARITY CLEAR (CLEAR); COLOR YELLOW; GLUCOSE URINE NEGATIVE (NEGATIVE); KETONE URINE NEGATIVE (NEGATIVE); LEUKOCYTES URINE TRACE (NEGATIVE); NITRITE URINE NEGATIVE (NEGATIVE); PH URINE 6.5; PROTEIN URINE NEGATIVE (NEGATIVE); SP GRAVITY URINE 1.015; UROBILINOGEN URINE NORMAL
[2019-04-29 11:28] LABS: URINE RBC <10 /HPF (<10)
[2019-04-29 11:29] LABS: URINE BACTERIA 1+ /HFP; URINE EPITHELIAL CELLS <10 /HPF (<10); URINE SOURCE CLEAN CATCH
[2019-04-29 16:11] LABS: OCCULT BLOOD 1 POSITIVE (NEGATIVE)
[2019-04-29 16:27] LABS: AGAP 9; ALBUMIN 3.7 g/dL (3.5-5.0); ALKALINE PHOSPHATASE 66 U/L (32-122); BUN 29 mg/dL (8-22); CALCIUM 9.7 mg/dL (8.8-10.2); CHLORIDE 100 mmol/L (98-107); COSMO 272; ESTIMATED GFR > 60; GLUCOSE 102 mg/dL (70-104); GOT 17 U/L (10-34); GPT 13 U/L (10-44); POTASSIUM 4.8 mmol/L (3.5-5.1); SODIUM 133 mmol/L (136-145); TCO2 24 mmol/L (25-35); TOTAL PROTEIN 6.4 g/dL (6.3-8.3)
[2019-04-29 19:13] LABS: BILIRUBIN URINE NEGATIVE (NEGATIVE); BLOOD URINE 4+ (NEGATIVE); CLARITY CLEAR (CLEAR); COLOR YELLOW; GLUCOSE URINE NEGATIVE (NEGATIVE); KETONE URINE NEGATIVE (NEGATIVE); LEUKOCYTES URINE TRACE (NEGATIVE); NITRITE URINE NEGATIVE (NEGATIVE); PROTEIN URINE TRACE mg/dL (NEGATIVE); SP GRAVITY URINE 1.015; UROBILINOGEN URINE NORMAL
[2019-04-29 19:27] LABS: URINE SOURCE CATH
[2019-04-29 19:28] LABS: URINE WBC <10 /HPF (<10)
[2019-04-29 19:29] LABS: URINE BACTERIA 1+ /HFP; URINE CAST NONE SEEN /LPF; URINE CRYSTAL NONE SEEN /HPF; URINE EPITHELIAL CELLS <10 /HPF (<10); URINE YEAST NONE SEEN /HPF
[2019-04-30] MEDS: DUONEB (A & A) INH SCH ×6 (03:13→23:00)
[2019-04-30] MEDS: SYNTHROID PO SCH (06:29)
[2019-04-30] MEDS: PRILOSEC PO SCH (06:29)
[2019-04-30] MEDS: LYRICA PO SCH ×2 (09:41→20:39)
[2019-04-30] MEDS: NORVASC PO SCH (09:41)
[2019-04-30] MEDS: XARELTO PO SCH (09:42)
[2019-04-30] MEDS: ZOLOFT PO SCH (09:42)
[2019-04-30] MEDS: COZAAR PO SCH (09:42)
--- NOTE | 2019-04-30 10:06 | PROGRESS NOTE ---
DATE: 04/30/2019 This is an 84-year-old male with COPD, significant valvular heart disease, general poor health, who is admitted because he was not eating, not getting up, and we are planning on sending him to a rehab. His vital signs currently are temperature 98.1, pulse 67, respiratory rate 16, blood pressure 112/69, O2 saturation on 2 L is 99%. Yesterday afternoon, we had to place a Thornton catheter in because of 900 mL of urine the catheter drained. He is still pending discharge to a rehab the first part of this coming week. His most recent lab shows a relatively normal CBC other than mild elevation of white count of 11.6. His culture data shows no growth in his blood cultures. Sputum grew out Enterobacter cloacae. We are going to review and revisit his labs again today. The serologies before were negative. Stools were slightly positive when they placed the Thornton catheter, and he had some stool in the bed that seemed to be bloody. He has a history in the past of bleeding that has never really been identified. We are trying to get him improved enough to where he might benefit from rehab. cc: Prasanth Leigh MD
--- NOTE | 2019-04-30 10:45 | Diag Imaging Result Doc PS360 ---
CHEST-PORTABLE - 04/30/2019 INDICATION: cough COMPARISON: 04/27/2019 FINDINGS: Stable cardiomegaly and pulmonary vascular congestion. Stable focal opacification at the lateral right lung base. Stable interstitial markings in the lung bases consistent with pulmonary fibrosis or mild pulmonary edema. No new infiltrates. IMPRESSION: No change from prior. Electronically signed by Jaspreet Madrid 04/30/2019 10:43 AM
[2019-04-30 11:04] LABS: BASO# 0.02 X1000 (0.0-0.2); BASO% 0.2 % (0.0-0.8); EOS# 0.21 X1000 (0.0-0.7); EOS% 1.9 % (0.0-10.0); HEMATOCRIT 35.3 % (42.0-52.0); HEMOGLOBIN 10.7 g/dL (14.0-18.0); IMM GRAN# 0.02 X1000 (0.0-0.04); IMM GRAN% 0.2 % (0.0-0.5); LYMPH% 7.1 % (20.5-51.1); MCH 24.8 PG (27-31); MCHC 30.3 g/dL (33-37); MCV 81.9 FL (81-99); MONO# 0.88 X1000 (0.11-0.59); MONO% 7.8 % (1.7-9.3); MPV 9.9 FL (7.4-10.4); NEUT# 9.35 X1000 (1.4-6.5); NEUT% 82.8 % (42.2-75.2); PLT 350 X1000 (130-400); RBC 4.31 XMIL (4.7-6.1); RDW 16.2 % (11.5-14.5); WBC 11.28 X1000 (4.8-10.8)
[2019-04-30 11:17] LABS: AGAP 11; ALBUMIN 3.9 g/dL (3.5-5.0); ALKALINE PHOSPHATASE 79 U/L (32-122); BUN 30 mg/dL (8-22); CALCIUM 9.6 mg/dL (8.8-10.2); CHLORIDE 97 mmol/L (98-107); COSMO 269; ESTIMATED GFR > 60; GLUCOSE 106 mg/dL (70-104); GOT 20 U/L (10-34); GPT 14 U/L (10-44); POTASSIUM 4.6 mmol/L (3.5-5.1); SODIUM 131 mmol/L (136-145); TCO2 24 mmol/L (25-35); TOTAL PROTEIN 6.8 g/dL (6.3-8.3)
[2019-05-01] MEDS: DUONEB (A & A) INH SCH ×6 (03:04→23:04)
[2019-05-01] MEDS: SYNTHROID PO SCH (06:14)
[2019-05-01] MEDS: PRILOSEC PO SCH (06:14)
[2019-05-01] MEDS: NORVASC PO SCH (09:01)
[2019-05-01] MEDS: LYRICA PO SCH ×2 (09:01→20:25)
[2019-05-01] MEDS: ZOLOFT PO SCH (09:02)
[2019-05-01] MEDS: XARELTO PO SCH (09:02)
[2019-05-01] MEDS: COZAAR PO SCH (09:02)
--- NOTE | 2019-05-01 09:15 | HISTORY AND PHYSICAL ---
HISTORY OF PRESENT ILLNESS: Mr. Clarke is an 84-year-old man born 1935. He has been a longstanding patient of mine, who presented to the emergency room, brought in by his [place] , saying that he is getting weaker and weaker. The patient has multiple chronic illnesses including COPD, systolic and diastolic heart failure, severe mitral regurgitation, atrial fibrillation, distant history of prostate cancer, paralyzed vocal cord and deafness. With that, he presented to the emergency room on amlodipine 2.5 daily, levothyroxine 25 mcg daily, losartan 100 daily, omeprazole 40, pregabalin 150 b.i.d., Xarelto 20 daily, Zoloft 150. He has no allergies. He was complaining of weakness and showed up at the ER, brought in by EMS, for worsening generalized weakness in the arms and legs and altered mental status, cough, decreased activity and diminished appetite for a week. He was seen in the ER by Dr. Mauro, who thought that there may be a possibility of sepsis and worked him up in the ER. He had several issues but primarily was just general weakness. He had no temperature. His vital signs were stable with a blood pressure of 150/80, pulse of 65, respiratory rate 18, O2 saturation was 99% on oxygen. He was assessed. His EKG showed that he was in atrial fibrillation with rate of 76. His chest x-ray showed chronic infiltrate in the right lower lung that has been present for quite some time. It is primarily lung interstitial fibrosis in the lower lungs, cardiomegaly, right pleural thickening. So they admitted him as a COPD exacerbation, UTI, uncomplicated, and yeast UTI. He was put upstairs on antibiotics and with intentions of getting him stronger and sending him to a rehab. REVIEW OF SYSTEMS: Other than just general fatigue and difficulty ambulating and chronic COPD and a gargling cough and voice, he was at his usual self. He did not complain of any visual acuity changes or field cuts. Ears, nose and throat: Other than his gurgling respirations and voice, negative. Cardiovascular: He denied chest pain, syncope, an awareness of his heart beating. No particular position shortness of breath. Respiratory: He has been coughing and he wheezes, but that is nothing new and has been there for quite some time. Gastrointestinal: Poor appetite. The patient denies any diarrhea, nausea, vomiting, blood loss. Genitourinary: No polyuria, polydipsia, hematuria. He has urinary frequency. Some diminished stream. Musculoskeletal: He just complains of generalized aches and pains but no specific arthritis or injury. Skin: Clear for rash or lesions. Neurologic: He was a little bit confused, but if you talk loud enough, he is quite alert, I think. No focal neurological deficits. Psychiatric: Negative. Endocrine: No history of diabetes or thyroid problems. Hematologic: No bleeding or clotting disorders. Allergies: No significant allergies. PAST MEDICAL HISTORY: He has had atrial fibrillation, congestive heart failure, hypertension, COPD, cancer of the prostate, paralyzed vocal cords, history of a stroke in the past. He has had a TURP recently. He is an ex-smoker. SOCIAL HISTORY: He uses alcohol occasionally. He is a nonsmoker. PHYSICAL EXAMINATION: HEENT: Head with temporal wasting. Nares patent. Eyes are PERRL. EOMs intact. Sclerae clear. His voice was rattling from his paralyzed vocal cord. NECK: Supple. Midline trachea. CHEST: Rhonchi. Diminished breath sounds. Increased AP diameter. Flattened diaphragms. CARDIOVASCULAR: He had a distant and regular rhythm and rate. He had a faint murmur at his apex. ABDOMEN: Soft, no hepatosplenomegaly. No CVA tenderness. EXTREMITIES: Negative for cyanosis, clubbing or edema. NEUROLOGICAL: No focal deficits. By the time I saw him, his mental status was as is, status quo. He was admitted with a urinary tract infection, history of prostate cancer, history of yeast in his urine, some difficulty with some lower urinary tract obstructive symptoms, chronic cough, rattling respirations, poor appetite, difficulty ambulating, generalized weakness. He is getting to the point he cannot stay at home by himself like he has previously. His works. So we are trying to negotiate some physical therapy to get his man back independent again. cc: Prasanth Leigh MD
[2019-05-02] MEDS: DUONEB (A & A) INH SCH ×4 (03:31→14:50)
[2019-05-02] MEDS: SYNTHROID PO SCH (06:37)
[2019-05-02] MEDS: PRILOSEC PO SCH (06:37)
[2019-05-02] MEDS: ZOLOFT PO SCH (08:17)
[2019-05-02] MEDS: NORVASC PO SCH (08:17)
[2019-05-02] MEDS: COZAAR PO SCH (08:17)
[2019-05-02] MEDS: LYRICA PO SCH (08:17)
[2019-05-02] MEDS: XARELTO PO SCH (08:17)
[2019-05-02 13:50] VITALS: BP 124/77
--- NOTE | 2019-05-02 14:56 | PROGRESS NOTE ---
DATE: 04/28/2019 VITAL SIGNS: Temperature was 97.9, pulse is 75, respiratory rate is 18, BP 101/47, O2 saturation was 97. Laboratory was not done on that day. His urine and serologies were not done that day. He was basically bedridden, deaf, hoarse, garbled speech. According to the family had not been falling and not getting out of bed, getting weaker and weaker. They feel like he is becoming more and more burdensome to take care of him and they thought needed to bring him in because of weakness and progress to a rehab situation. cc: Prasanth Leigh MD
--- NOTE | 2019-05-02 15:20 | DISCHARGE SUMMARY ---
ADMISSION DATE: 04/27/2019 DISCHARGE DATE: Rigo Clarke, who has been a longstanding patient, 84-year-old male who lives with his [place] and his [place] step-son. Lately, he has been having some issues with being able to take care of himself when the 2 aforementioned relatives are not at home and he has been found lying around on the floor. He has a history of COPD secondary to smoking. 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 He was brought to the emergency room complaining of generalized weakness by EMS that involved arms and legs and had some altered mental status, decreased activity including appetite for a week. He was seen in the ER by Dr. Mauro, who thought there was a possibility of sepsis, worked him up in the ER, but nothing really came out of that. His EKG showed a heart rate of 76, atrial fibrillation, and they did not include Lanoxin 0.25 that had been busted into fourth, I am not sure whether he is taking that or not. His is not available to tell us. He has a chest x-ray, which shows a chronic infiltrate in the right lower lobe that has been evaluated by CAT scan on several occasions and is considered to be scarring. He has some general fibrosis of the lungs as well with cardiomegaly. He appeared to have perhaps a compounding UTI going on and he was evaluated. DATABASE: His database includes the following: Microbiological data, during the stay he had blood cultures, sputum and urine, and stool. Stool was canceled. The urine had no growth. The sputum grew out Enterobacter cloacae. Blood cultures were negative. His imaging reports include series of chest x-rays, they show the heart size mildly enlarged and stable. There was tortuosity of the thoracic aorta unchanged. Right upper lobe granuloma unchanged. There is apparent bilateral lower lung interstitial fibrosis similar to prior films. There is a stable right pleural thickening compared to previous exam, no changes were identified. Followup x-ray on 04/30 showed cardiomegaly, pulmonary vascular congestion, stable focal opacities at the right lateral lung base, stable interstitial markings in the lung bases consistent with pulmonary fibrosis or pulmonary edema, no new infiltrates. We doubt that it is pulmonary edema. Cardiovascular database: His EKG showed atrial fibrillation with a right bundle branch, chronic lateral T wave changes, no previous change. LABORATORY DATA: When he got here, his hematocrit was 39, during the stay it was 34, 35, white count was 10.24, up to 11.82. His platelets were 349. His coags, his PTT was prolonged at 70.5 secondary to his medications. Blood gases on 04/27: pH was 7.46, pCO2 33, pO2 of 108, carboxyhemoglobin 2.9 on 28%. He does have home oxygen by the way. Chemistries: Persistent BUN around 29, creatinines were 1, GFR stayed at all were greater than 60, carboxyhemoglobin levels were 25, 24, 24, no significant drop. Sodium was a little bit low at 133, potassiums were fine. Total protein and albumin were unchanged. Plasma lactates were 1.6 and 1.2, not elevated. Liver functions are normal, not elevated. Calcium is normal, not elevated. Random blood sugars were normal, not elevated. His urinalysis showed no significant abnormalities. We on 04/29 cath'd him because he had 800 mL of urine in his bladder. He does have the history of aforementioned prostate cancer that was dealt with, and he does not know if it was radiographically or surgically, but we drained a large amount of urine, and he felt much better. Current urinalysis has 4+ blood, 10-20 RBCs, otherwise negative, most likely from the cath. He had stools for blood that were positive but were trace positive. Flu swabs were negative. So, basically he was weak, had significant problems moving about, short of breath, cannot talk because of paralyzed vocal cords, sounds like he is gargling the whole time. He eats well when you take time to feed him. He sits up and does his tray if helped. I think he is not far from being ambulatory. I think the Thornton can be taken out in due time we were just relieving his bladder the other day. His atrial fibrillation, the only thing there that is an issue is that he once upon a time was on digoxin a quarter of a tablet of the 250, so I do not know that he is doing that now, but his rate has not been a significant problem here. The other thing is about the bleeding. Once upon a time, he had some bleeding upper bleeding when he was on some Coumadin back in the past for atrial fibrillation when he had had a stroke that has resolved for the most part. That is why he is on the Xarelto as well. Hopefully, he is rehab-able and he can support himself. As I said earlier, families are working all the time and they cannot be with him, although, I think his is very attentive to his needs. cc: Prasanth Leigh MD
== END 2019-05-02 17:32 | DRG 191 ==
LOC: P.ED 09:01 → SUATTDRO 13:16 → P.MEDSURG 13:16
PROVIDERS: ADMIT Internal Medicine; ATTEND Internal Medicine

== ENCOUNTER 2019-05-14 12:42 | Inpatient (IN) ==
[2019-05-14] MEDS ORDERED: DUONEB (A & A) INH ONE (12:57)
[2019-05-14 13:40] LABS: BE 2.8 mmoll (-3.0-3.0); BLOOD TYPE ARTERIAL; METHB 1.4 % (0.0-1.5); O2(CT) 15.2 mL/dL (15.0-23.0); O2HB 93.4 % (95.0-99.0); PCO2(98.6) 40 mmHg (35-45); PO2(98.6) 78 mmHg (60-100); SAMPLE BLOOD; SAO2 96.9 % (95.0-100.0); THB 11.5 g/dL (11.5-17.4); pH(98.6) 7.44 (7.35-7.45)
[2019-05-14 13:43] LABS: ALLEN TEST NO
[2019-05-14 13:53] LABS: BASO# 0.02 X1000 (0.0-0.2)
[2019-05-14 13:54] LABS: BASO% 0.1 % (0.0-0.8); EOS# 0.01 X1000 (0.0-0.7); EOS% 0.1 % (0.0-10.0); HEMATOCRIT 34.2 % (42.0-52.0); HEMOGLOBIN 10.9 g/dL (14.0-18.0); IMM GRAN# 0.04 X1000 (0.0-0.04); IMM GRAN% 0.2 % (0.0-0.5); LYMPH# 0.39 X1000 (1.2-3.4); LYMPH% 2.1 % (20.5-51.1); MCH 25.3 PG (27-31); MCHC 31.9 g/dL (33-37); MCV 79.5 FL (81-99); MONO# 0.85 X1000 (0.11-0.59); MONO% 4.7 % (1.7-9.3); NEUT# 16.87 X1000 (1.4-6.5); NEUT% 92.8 % (42.2-75.2); PLT 269 X1000 (130-400); RDW 16.6 % (11.5-14.5); WBC 18.18 X1000 (4.8-10.8)
[2019-05-14 13:57] LABS: AGAP 14; ALBUMIN 3.7 g/dL (3.5-5.0); ALKALINE PHOSPHATASE 83 U/L (32-122); BUN 18 mg/dL (8-22); CALCIUM 9.2 mg/dL (8.8-10.2); CHLORIDE 93 mmol/L (98-107); COSMO 265; ESTIMATED GFR > 60; GLUCOSE 114 mg/dL (70-104); GOT 26 U/L (10-34); GPT 16 U/L (10-44); SODIUM 131 mmol/L (136-145); TCO2 24 mmol/L (25-35); TOTAL PROTEIN 6.5 g/dL (6.3-8.3)
[2019-05-14 14:01] LABS: ANISOCYTOSIS 1+; LYMPHS 4 % (21-51); MONO 2 % (1-9); SEGS 94 % (42-75)
--- NOTE | 2019-05-14 14:26 | Diag Imaging Result Doc PS360 ---
EXAM: CHEST-2 VIEWS HISTORY: sob TECHNIQUE: Three views COMPARISON: 04/30/2019 FINDINGS: The heart is enlarged. The lungs are hyperexpanded. There is a small right pleural effusion with tiny left pleural effusion. Mild increased interstitial markings bilaterally. No consolidation. IMPRESSION: Stable exam Electronically signed by Tone Zavala 05/14/2019 2:24 PM
[2019-05-14] MEDS ORDERED: ZOSYN 4.5 GM in NS 100 ML IV ONE (14:29)
[2019-05-14] MEDS ORDERED: VANCOMYCIN 1 GM/NS 1 GM/250 ML IVPB IV ONE ×2 (14:29→18:30)
[2019-05-14] MEDS ORDERED: LASIX IV ONE (14:37)
[2019-05-14] MEDS ORDERED: SOLU-MEDROL IV ONE (14:37)
--- NOTE | 2019-05-14 14:37 | PROVIDER DOCUMENTATION ---
This chart was entered by Rosalie Segura Scribe, acting as scribe for Jean Kathleen MD. HPI-Respiratory General - General Chief Complaint: Shortness of Breath Stated Complaint: RESP DISTRESS Time Seen by Provider: 05/14/19 13:17 Source: patient, EMS Allergies/Adverse Reactions: Patient Allergies Allergy/AdvReac Type Severity Reaction Status Date / Time No Known Allergies Allergy Verified 05/14/19 13:29 Home Medications: Home Medication List Medication Instructions Recorded Confirmed Last Taken Type Amlodipine Besylate 2.5 mg PO DAILY 04/23/19 04/27/19 04/22/19 History Levothyroxine Sodium 25 mcg PO DAILY 04/23/19 04/27/19 04/22/19 History Losartan Potassium 100 mg PO DAILY 04/23/19 04/27/19 04/22/19 History Omeprazole 40 mg PO DAILY 04/23/19 04/27/19 04/22/19 History Pregabalin 150 mg PO BID 04/23/19 04/27/19 04/22/19 History Rivaroxaban [Xarelto] 20 mg PO DAILY 04/23/19 04/27/19 04/22/19 History Sertraline HCl 150 mg PO DAILY 04/23/19 04/27/19 04/22/19 History Acetaminophen [Tylenol] 650 mg PO Q6H PRN PRN tab 05/02/19 Unknown Rx Albuterol 2.5MG/Ipratrop 0.5MG 3 ml INH RTQ4H neb 05/02/19 Unknown Rx [Duoneb (A & A)] Menthol/Zinc Oxide Ointment 1 gm TOP PRN PRN tube 05/02/19 Unknown Rx [Calmoseptine Ointment] - History of Present Illness-Resp Nature of Presenting Problem: 84 y/o male with history of COPD, CHF, A-FIB, and TIA presents to the ED via EMS from [facility] with complaint of SOB with sats in the 80's. EMS states Albuterol treatment given en route. Onset/Duration: reports: gradual Timing: reports: improving Cough Quality/Degree: reports: productive cough Episode Frequency: chronic episodes Current Respiratory Medication Therapy: Initiated see nurses note Associated Symptoms: reports: cough Similar Symptoms Previously?: Yes Recently seen or treated by another doctor?: No Review of Systems - Adult - REVIEW OF SYSTEMS - ADULT Constitutional: denies: chills, fever, night sweats Eyes: reports: no symptoms reported Ears, Nose, Mouth & Throat: reports: no symptoms reported Cardiovascular: reports: no symptoms reported Respiratory: reports: cough, shortness of breath. denies: hemoptysis Gastrointestinal: denies: diarrhea, rectal bleeding, vomiting Genitourinary: reports: no symptoms reported Musculoskeletal: reports: no symptoms reported Integumentary: reports: no symptoms reported Neurological: reports: no symptoms reported Psychiatric: reports: no symptoms reported Endocrine: reports: no symptoms reported Hematologic/Lymphatic: reports: no symptoms reported Allergic/Immunologic: reports: no symptoms reported All Other Systems: Reviewed and Negative Past History - Adult - PAST MEDICAL HISTORY-ADULT Review of Records: reports: Nursing Assessment Review, Medications Reviewed Major Childhood Illnesses: reports: denies history Cardiovascular: reports: A-Fib, CHF, HTN Respiratory: reports: COPD Gastrointestinal: reports: cancer (prostate) Obstetrical/Gynecological: reports: denies history Genitourinary: reports: prostate cancer Musculoskeletal: reports: denies history Neurological: reports: CVA Endocrine/Immune: reports: denies history Other Conditions: reports: other cancer (skin) - PRIOR SURGERIES/PROCEDURES Surgical/Procedure History: reports: other (TURP) - IMMUNIZATION STATUS Childhood Immunizations: See Nurse Assessment Flu Vaccine: See Nurse Assessment - FAMILY HISTORY Family History: reviewed, not pertinent - SOCIAL HISTORY Smoking: other (former smoker) Living Situation: care facility [facility] Physical Exam-General - PHYSICAL EXAM-ADULT Initial Vital Signs Reviewed: Yes - CONSTITUTIONAL General Appearance: alert, mild distress - RESPIRATORY Respiratory: rales (right base with deep inspiration), increased rate - CARDIOVASCULAR Cardiovascular: regular rate, rhythm, no murmur - SKIN Integumentary: negative: cyanosis, diaphoresis - HEART Score HEART Score: History: Slightly Suspicious HEART Score: ECG: Non-Specific Repolarization Disturbance/LBBB/PM HEART Score: Age: > or = 65 Years HEART Score: Risk Factors for Atherosclerotic Disease: 1 or 2 Risk Factors Progress - PLAN OF CARE/RESULTS Progress/Plan/Lab Results: Vital Signs - 8 hr 05/14/19 12:45 05/14/19 13:08 Temperature 97.8 F Pulse Rate 86 96 H Respiratory Rate 22 25 H Blood Pressure 98/50 O2 Sat by Pulse Oximetry 92 L 95 Laboratory Results - last 24 hr 05/14/19 05/14/19 05/14/19 13:10 13:10 13:10 WBC 18.18 H RBC 4.30 L Hgb 10.9 L Hct 34.2 L MCV 79.5 L MCH 25.3 L MCHC 31.9 L RDW Std Deviation 16.6 H Plt Count 269 MPV 10.0 Immature Gran % (Auto) 0.2 Neut % (Auto) 92.8 H Lymph % (Auto) 2.1 L Mesa % (Auto) 4.7 Eos % (Auto) 0.1 Baso % (Auto) 0.1 Immature Gran # (Auto) 0.04 Neut # (Auto) 16.87 H Lymph # (Auto) 0.39 L Mesa # (Auto) 0.85 H Eos # (Auto) 0.01 Baso # (Auto) 0.02 Segmented Neutrophils 94 H Lymphocytes 4 L Monocytes 2 Anisocytosis 1+ Specimen Type Sample Site pH pCO2 pO2 HCO3 Base Excess Oxyhemoglobin ABG O2 Sat (Calculated) ABG O2 Saturation ABG Carboxyhemoglobin ABG Methemoglobin Kwesi Test A-a O2 Difference Total Hemoglobin Lactate Liter Flow Blood Gas Modality FiO2 % Sodium 131 L Potassium 5.0 Chloride 93 L Carbon Dioxide 24 L Anion Gap 14 BUN 18 Creatinine 1.0 Estimated GFR/1.73 m2 > 60 BUN/Creatinine Ratio 18 Glucose 114 H Calculated Osmolality 265 Calcium 9.2 Total Bilirubin 0.40 AST 26 ALT 16 Alkaline Phosphatase 83 Sgk-A-Ohlrylelfbp Pept Total Protein 6.5 Albumin 3.7 Globulin 3.0 Albumin/Globulin Ratio 1.0 Plasma Lactate 1.2 05/14/19 05/14/19 13:10 13:17 WBC RBC Hgb Hct MCV MCH MCHC RDW Std Deviation Plt Count MPV Immature Gran % (Auto) Neut % (Auto) Lymph % (Auto) Mesa % (Auto) Eos % (Auto) Baso % (Auto) Immature Gran # (Auto) Neut # (Auto) Lymph # (Auto) Mesa # (Auto) Eos # (Auto) Baso # (Auto) Segmented Neutrophils Lymphocytes Monocytes Anisocytosis Specimen Type ARTERIAL Sample Site R BRACHIAL pH 7.44 pCO2 40 pO2 78 HCO3 27.0 H Base Excess 2.8 Oxyhemoglobin 93.4 L ABG O2 Sat (Calculated) 15.2 ABG O2 Saturation 96.9 ABG Carboxyhemoglobin 2.30 ABG Methemoglobin 1.4 Kwesi Test NO A-a O2 Difference 122.0 Total Hemoglobin 11.5 Lactate 0.90 Liter Flow 12.0 Blood Gas Modality VENTILATOR FiO2 % 35.0 Sodium Potassium Chloride Carbon Dioxide Anion Gap BUN Creatinine Estimated GFR/1.73 m2 BUN/Creatinine Ratio Glucose Calculated Osmolality Calcium Total Bilirubin AST ALT Alkaline Phosphatase Doa-E-Sqmkdnmqugr Pept 3320 H Total Protein Albumin Globulin Albumin/Globulin Ratio Plasma Lactate Orders Category Date Time Status Oxygen Therapy- ED Nursing DIRECTED Care 05/14/19 12:52 Active CHEST-2 VIEWS [RAD] Stat Exams 05/14/19 13:14 Completed ABG [RESP] Routine Lab 05/14/19 13:17 Completed BLOOD CULTURE [BLDCUL] Stat Lab 05/14/19 13:36 Ordered CBC WITH DIFF [HEME] Stat Lab 05/14/19 13:10 Completed COMPREHENSIVE METABOLIC PANEL [CHEM] Stat Lab 05/14/19 13:10 Completed LACTATE, PLASMA [CHEM] Stat Lab 05/14/19 13:10 Completed PRO B-NATRIURETIC PEPTIDE Stat Lab 05/14/19 13:10 Completed Albuterol 2.5MG/Ipratrop 0.5MG [Duoneb (A & A)] Med 05/14/19 12:57 Discontinued 3 ml INH NOW ONE Vancomycin 1 gm IV Now Med 05/14/19 14:29 Ordered Vancomycin 1 gm/Ns 1 gm in 250 ml IV NOW Zosyn 4.5 gm/Ns IV Now Med 05/14/19 14:29 Ordered Piperacillin/Tazobactam [Zosyn] 4.5 gm 0.9% Sodium Chloride Inj [Ns] 100 ml IV NOW Aerosol Treatments Routine Oth 05/14/19 12:57 Active Aerosol Treatments Stat Oth 05/14/19 12:52 Completed Aerosol Treatments Stat Oth 05/14/19 12:57 Completed Asthma/COPD (Adult) Stat Oth 05/14/19 12:52 Ordered EKG [EKG] Stat Ther 05/14/19 12:53 Ordered Result Diagrams: 05/14/19 13:10 05/14/19 13:10 - EKG 1 Time of EKG reading by physician:: 13:09 EKG Read and Signed by:: Jean Kathleen (No STEMI ) EKG Interpretation (*Must complete 3 of following elements*): Abnormal (T wave abnormality consider inferior ischemia) Rate: 97 Rhythm: atrial fibrillation Comments: Right BBB, septal infarct age undetermined - XRAY 1 XRAY Study: Chest Comparison with other Films: no changes (EXAM: CHEST-2 VIEWS HISTORY: sob TECHNIQUE: Three views COMPARISON: 04/30/2019 FINDINGS: The heart is enlarged. The lungs are hyperexpanded. There is a small right pleural effusion with tiny left pleural effusion. Mild increased interstitial markings bilaterally. No consolidation. IMPRESSION: Stable exam Electronically signed by Tone Zavala 05/14/2019 2:24 PM) - CONSULTS/PCP/HOSPITALIST Notification #1 *Consult/PCP/Hospitalist*: DR SANDHU Time Discussed: 14:34 Consult Disposition: Admit Departure - Departure Date of Disposition Decision: 05/14/19 Time of Disposition Decision: 14:34 DIAGNOSIS: COPD exacerbation, Shortness of breath Pneumonia Qualifiers: Pneumonia type: due to unspecified organism Laterality: right Lung location: lower lobe of lung Qualified Code(s): J18.1 - Lobar pneumonia, unspecified organism CHF (congestive heart failure) Qualifiers: Heart failure type: unspecified Heart failure chronicity: acute on chronic Qualified Code(s): I50.9 - Heart failure, unspecified Disposition: ADMITTED INPATIENT 09 Certified Medical Emergency: Emergent Condition: Fair - Critical Care Note This patient required my direct & personal management of CC.: No Attestation - Physician/ FREIDA Attestation The physician spent face to face time with patient:: Yes Advanced Practice Provider documentation review:: Supervising physician onsite and consulted in the evaluation and care of this patient. The physician did have a face to face encounter with the patient. This chart was documented by the indicated scribe, (Rosalie Segura, Kristin) and accurately reflects the services I performed and decisions made by me, Jean Kathleen MD, as attested by the provider's signature.
[2019-05-14] MEDS ORDERED: TYLENOL PO PRN ×2 (16:01→17:33)
[2019-05-14] MEDS ORDERED: ZOFRAN IV PRN (16:01)
[2019-05-14] MEDS ORDERED: MORPHINE IV PRN ×2 (16:01→16:05)
--- NOTE | 2019-05-14 16:11 | EKG Report ---
Test Performed on : 05/14/2019 1:07:54 PM Test Reason : GLORY Blood Pressure : / mmHG Vent. Rate : 097 BPM Atrial Rate : 060 BPM P-R Int : 000 ms QRS Dur : 124 ms QT Int : 362 ms P-R-T Axes : 000 069 -10 degrees QTc Int : 459 ms Atrial fibrillation. Right bundle branch block Septal infarct , age undetermined T wave abnormality, consider inferior ischemia Abnormal ECG When compared with ECG of 23-APR-2019 15:21, (Unconfirmed) QRS duration has decreased Septal infarct is now present Unconfirmed Result
[2019-05-14] MEDS: DUONEB (A & A) INH SCH ×3 (16:45→23:09)
[2019-05-14] MEDS ORDERED: CALMOSEPTINE OINTMENT TOP PRN (17:33)
[2019-05-14] MEDS ORDERED: VANCOMYCIN IV PER PHARMACY MISC SCH (17:45)
[2019-05-14] MEDS: ZOSYN 3.375 GM in NS 50 ML IV SCH (19:33)
[2019-05-14] MEDS: LYRICA PO SCH (20:03)
[2019-05-14 23:58] LABS: URINE SOURCE CATH
[2019-05-15] LABS: BILIRUBIN URINE NEGATIVE (NEGATIVE); BLOOD URINE MODERATE (NEGATIVE); COLOR YELLOW; GLUCOSE URINE NEGATIVE (NEGATIVE); KETONE URINE NEGATIVE (NEGATIVE); LEUKOCYTES URINE SMALL (NEGATIVE); NITRITE URINE NEGATIVE (NEGATIVE); PH URINE 5.5; PROTEIN URINE NEGATIVE (NEGATIVE); SP GRAVITY URINE 1.013; TURBIDITY URINE CLEAR (CLEAR); UR EPITHELIAL CELLS <10 /HPF (<10); URINE BACTERIA 2+ /HPF; URINE WBC <10 /HPF (<10); UROBILINOGEN URINE NORMAL (NORMAL)
[2019-05-15] MEDS: ZOSYN 3.375 GM in NS 50 ML IV SCH ×4 (01:02→18:42)
[2019-05-15] MEDS: DUONEB (A & A) INH SCH ×6 (03:15→23:16)
[2019-05-15] MEDS: PRILOSEC PO SCH (06:07)
[2019-05-15] MEDS: NORVASC PO SCH (09:50)
[2019-05-15] MEDS: COZAAR PO SCH (09:50)
[2019-05-15] MEDS: LYRICA PO SCH ×2 (09:50→22:04)
[2019-05-15] MEDS: ZOLOFT PO SCH (09:50)
[2019-05-15] MEDS: XARELTO PO SCH (09:50)
[2019-05-15] MEDS: SYNTHROID PO SCH (09:50)
[2019-05-15] MEDS: VANCOMYCIN 2 GM in NS 500 ML IV SCH (12:57)
[2019-05-15 14:09] LABS: MODALITY VENTIMASK
[2019-05-15] MEDS ORDERED: VANCOMYCIN 2 GM in NS 500 ML IV SCH (23:00)
[2019-05-16] MEDS: ZOSYN 3.375 GM in NS 50 ML IV SCH ×4 (01:13→19:47)
[2019-05-16] MEDS: DUONEB (A & A) INH SCH ×6 (03:52→23:28)
[2019-05-16] MEDS: PRILOSEC PO SCH (06:15)
[2019-05-16] MEDS: NORVASC PO SCH (09:29)
[2019-05-16] MEDS: COZAAR PO SCH (09:29)
[2019-05-16] MEDS: SYNTHROID PO SCH (09:30)
[2019-05-16] MEDS: XARELTO PO SCH (09:30)
[2019-05-16] MEDS: LYRICA PO SCH ×2 (09:30→21:24)
[2019-05-16] MEDS: ZOLOFT PO SCH (09:30)
[2019-05-16 09:38] LABS: ALBUMIN 3.4 g/dL (3.5-5.0); CALCIUM 8.8 mg/dL (8.8-10.2); POTASSIUM 4.2 mmol/L (3.5-5.1); TOTAL BILIRUBIN 0.5 mg/dL (0.20-1.00); TOTAL PROTEIN 6.6 g/dL (6.3-8.3)
[2019-05-16 10:29] LABS: BASO# 0.02 X1000 (0.0-0.2); BASO% 0.2 % (0.0-0.8); EOS# 0.19 X1000 (0.0-0.7); EOS% 1.6 % (0.0-10.0); HEMATOCRIT 29.4 % (42.0-52.0); HEMOGLOBIN 9.2 g/dL (14.0-18.0); IMM GRAN# 0.03 X1000 (0.0-0.04); IMM GRAN% 0.3 % (0.0-0.5); LYMPH# 0.34 X1000 (1.2-3.4); LYMPH% 2.8 % (20.5-51.1); MCH 25.4 PG (27-31); MCHC 31.3 g/dL (33-37); MCV 81.2 FL (81-99); MPV 9.6 FL (7.4-10.4); NEUT# 10.77 X1000 (1.4-6.5); NEUT% 90.1 % (42.2-75.2); PLT 244 X1000 (130-400); RBC 3.62 XMIL (4.7-6.1); RDW 17.2 % (11.5-14.5); WBC 11.95 X1000 (4.8-10.8)
[2019-05-16 11:21] LABS: LYMPHS 4 % (21-51); MONO 1 % (1-9); SEGS 95 % (42-75)
--- NOTE | 2019-05-16 15:56 | PROGRESS NOTE ---
DATE: 05/15/2019 He looks his normal state of health curled up in the bed with oxygen. PHYSICAL EXAMINATION: Vital signs: He was afebrile. His pulse was 100, respiratory rate was 18, BP 106/48. He had 95% saturation on 2 L. Chest with rhonchi, increased AP diameter, rattling throat sounds. No edema. He is hard of hearing as usual. Shouting to him, he seems to be no different than he typically is, maybe he has coughed a bit more that alarm the people at the rehab center where he has just been admitted, but he was not toxic today with no fever or chills or night sweats. Just rattling noises, and he had cultures drawn, microbiologies, no growth. Urine no growth. Sputum pending. Vital signs: No fever. We are going to use the Antiobitics that he is currently getting and base our subsequent therapy on the results. cc: Prasanth Leigh MD MTDD
--- NOTE | 2019-05-16 16:30 | HISTORY AND PHYSICAL ---
HISTORY OF PRESENT ILLNESS: This is a regular patient of [facility] who has been at a rehab facility, rehabbing his weakness and his chronic pulmonary disease. He was apparently sent from the rehab facility to the emergency room where he has a known background history of COPD, CHF, chronic infiltrate in the right lung, atrial fibrillation, TIA, history of a GI bleed in the past, recently diagnosed and evaluated, paralyzed vocal cord that is not completely finished. He had gotten sick with cold like symptoms previously and was hospitalized here and was sent to the rehab per him and his , and he apparently caught a cold and he has generally a very loud, barking cough from his paralyzed vocal cord. He cannot hear and is always clearing his throat. The alleged cold and cough that he has, just been sort of developing a bit more than usual at the rehab and they sent him in. Not exactly sure if he had any fever. He denies fever, chills, and night sweats. He denies any change in his cough or change in his sputum. Denies nausea or vomiting. So, when he got to the hospital here his temperature was 97.8 degrees, pulse was 86, respiratory rate 22, and blood pressure 98/50. Oxygen saturation was 92%. While being evaluated in the ER the patient had a CBC with white count of 18,180. His hemoglobin was 10.9 and hematocrit was 34.2. He had a left shift with 92.8% neutrophils but I believe he has been on some steroids. His electrolytes - sodium is 131, potassium 5, chloride 93, CO2 24, BUN 18, creatinine 1, GFR greater than 60. BUN/creatinine ratio 18. Glucose 114. Calcium 9.2. Bilirubin 0.4. AST 26 and ALT 16. Alkaline phosphatase 83. Plasma lactate was 1.2. His blood gas on 35%, pH was 7.44, pCO2 40, pO2 was 78, carboxyhemoglobin was 2.3. His FIO2 was 35%. His proBNP was elevated at 33,320. In the ER after chest x-rays were obtained, the patient was cultured, treated with DuoNeb, and given vancomycin and Zosyn 4.5 and several aerosolized treatments. He had an EKG that showed nonspecific changes. No STEMI. Possible right bundle branch block. Possible septal infarct. Chest x-ray again shows heart is enlarged. The lungs are hyperexpanded. A small right pleural effusion with a tiny left pleural effusion, mild increased interstitial markings bilaterally; no consolidation. In comparing it to the other film it was stable and unchanged. So, it was felt because of the work of breathing, I guess, he was felt to need to be admitted with COPD exacerbation with some shortness of breath. So, he was placed on antibiotics and put in for COPD problems. cc: Prasanth Leigh MD
[2019-05-16] MEDS: VANCOMYCIN 2 GM in NS 500 ML IV SCH (17:40)
[2019-05-17] MEDS: ZOSYN 3.375 GM in NS 50 ML IV SCH ×4 (01:16→20:04)
[2019-05-17] MEDS: DUONEB (A & A) INH SCH ×5 (03:13→19:34)
[2019-05-17] MEDS: PRILOSEC PO SCH (06:18)
[2019-05-17] MEDS: SYNTHROID PO SCH (08:26)
[2019-05-17] MEDS: XARELTO PO SCH (08:26)
[2019-05-17] MEDS: NORVASC PO SCH (08:26)
[2019-05-17] MEDS: LYRICA PO SCH ×2 (08:26→20:04)
[2019-05-17] MEDS: ZOLOFT PO SCH (08:27)
[2019-05-17] MEDS: COZAAR PO SCH (08:27)
[2019-05-17 17:31] LABS: ALBUMIN 2.8 g/dL (3.5-5.0); CALCIUM 8.2 mg/dL (8.8-10.2); CREATININE 2.4 mg/dL (0.7-1.2); POTASSIUM 4.7 mmol/L (3.5-5.1); TOTAL BILIRUBIN 0.4 mg/dL (0.20-1.00); TOTAL PROTEIN 5.7 g/dL (6.3-8.3)
[2019-05-18] MEDS: DUONEB (A & A) INH SCH ×7 (00:06→23:02)
[2019-05-18] MEDS: ZOSYN 3.375 GM in NS 50 ML IV SCH ×4 (03:46→21:58)
[2019-05-18] MEDS: PRILOSEC PO SCH (06:23)
[2019-05-18] MEDS: LYRICA PO SCH ×2 (09:00→21:58)
[2019-05-18] MEDS: SYNTHROID PO SCH (09:00)
[2019-05-18] MEDS: COZAAR PO SCH (09:00)
[2019-05-18] MEDS: NORVASC PO SCH (09:00)
[2019-05-18] MEDS: XARELTO PO SCH (12:13)
[2019-05-18] MEDS: ZOLOFT PO SCH (12:13)
--- NOTE | 2019-05-18 17:55 | PROGRESS NOTE ---
DATE: 05/18/2019 Rigo Clarke was hospitalized with some respiratory distress. Currently today his vital signs are stable. His temp is 97.4, pulse 77, respiratory rate 20, BP 111/54, and O2 sat 100% on 3 L. CULTURE DATA: Blood cultures were negative. Sputum had normal gabe. Urine had pseudomonas. MEDICATIONS: Include: Albuterol. He is currently getting on a regular basis vancomycin and piperacillin. He had some prednisone given, 1 dose. He is on his Cozaar, Xarelto, amlodipine, levothyroxine, and omeprazole. He is doing better. He is sitting up and moving around a little bitter. We are going to try to get him in rehab to get him up walking. cc: Prasanth Leigh MD
[2019-05-19] MEDS: ZOSYN 3.375 GM in NS 50 ML IV SCH ×3 (03:35→16:35)
[2019-05-19] MEDS: DUONEB (A & A) INH SCH ×4 (05:24→15:22)
[2019-05-19] MEDS: PRILOSEC PO SCH (06:06)
[2019-05-19] MEDS: ZOLOFT PO SCH (10:54)
[2019-05-19] MEDS: COZAAR PO SCH (10:54)
[2019-05-19] MEDS: SYNTHROID PO SCH (10:55)
[2019-05-19] MEDS: LYRICA PO SCH (10:55)
[2019-05-19] MEDS: NORVASC PO SCH (10:55)
[2019-05-19] MEDS: XARELTO PO SCH (10:55)
[2019-05-19 11:28] LABS: BASO# 0.03 X1000 (0.0-0.2); BASO% 0.3 % (0.0-0.8); EOS# 0.39 X1000 (0.0-0.7); EOS% 4.5 % (0.0-10.0); HEMATOCRIT 27.2 % (42.0-52.0); HEMOGLOBIN 8.4 g/dL (14.0-18.0); IMM GRAN# 0.02 X1000 (0.0-0.04); IMM GRAN% 0.2 % (0.0-0.5); LYMPH% 5.8 % (20.5-51.1); MCHC 30.9 g/dL (33-37); MONO# 0.86 X1000 (0.11-0.59); MONO% 9.9 % (1.7-9.3); NEUT# 6.87 X1000 (1.4-6.5); NEUT% 79.3 % (42.2-75.2); PLT 240 X1000 (130-400); RBC 3.36 XMIL (4.7-6.1); RDW 17.1 % (11.5-14.5); WBC 8.67 X1000 (4.8-10.8)
--- NOTE | 2019-05-19 11:31 | DISCHARGE SUMMARY ---
ADMISSION DATE: 05/14/2019 DISCHARGE DATE: An 84-year-old patient of mine who was currently hospitalized here at [facility]. He is an 84-year- old male who has a longstanding history of COPD, chronic paralyzed vocal cord etiology unknown as of yet, who lives with his and his adopted son. He has recently gotten more progressively incapable of doing activities, walking, talking, because he is so short of breath and weak, more or less bed confined. His brought him to the ER. We ended up hospitalizing him and he was sent to rehab and has actually done quite well in his rehabilitation, not quite walking yet, but looks better, fed, well cared for, and while he was at the rehab facility he caught a cold and was sent back here to [facility] where he was admitted. His chest x-ray showed the heart was enlarged, lungs are hyperexpanded, there is a small right pleural effusion with a tiny left pleural effusion, mild increased interstitial markings bilaterally, no consolidation. His white count when he was admitted was 18,180 with a left shift, we think related to steroids. Subsequent white count was 11,950, hematocrit was 29.4. His urinalysis, he had moderate blood, small amount of leukocytes, 10-12 RBCs. DATABASE: His database shows that he has some when he presented to ER,creatinine was 1, BUN was 45, creatinine was 2.4 most recently. His blood gases, pH 7.44, pCO2 40, pO2 78. Toxicology, vancomycin levels were okay. Urine looked all right, small amount of white cells less than 10, 2+ bacteria. He currently has a temperature of 97.9, pulse of 84, respiratory rate 20, BP 114/76, O2 saturation at 98 at 3 L. His clinical microbiology, sputum was negative. Blood cultures were negative. His urine clean-catch was Pseudomonas, and his sensitivity on that Pseudomonas is it is resistant to Septra but is sensitive intermediately to Levaquin and resistant to cefazolin. He has been treated with antibiotics, vancomycin, and Zosyn. He is a No Code per him and per . He is not having any urinary tract symptoms. We are going to send him back to rehab because he is getting much better and more alert, is eating, and I think generally thriving in this environment. So, we are going to send him there and we are going to follow closely his renal function, and we are going to end up holding back on his Losartan, and we are going stop his antibiotics, continue Xarelto and Zoloft and his COPD drugs, and bump his amlodipine from 2.5 to 5, continue his thyroxine 25, and will keep up with his renal function. cc: Prasanth Leigh MD MTDD
[2019-05-19 11:34] LABS: ALBUMIN 3.3 g/dL (3.5-5.0); CALCIUM 8.8 mg/dL (8.8-10.2); CREATININE 2.7 mg/dL (0.7-1.2); POTASSIUM 4.8 mmol/L (3.5-5.1); TOTAL BILIRUBIN 0.4 mg/dL (0.20-1.00); TOTAL PROTEIN 6.2 g/dL (6.3-8.3)
[2019-05-19 13:34] LABS: BE -1.7 mmoll (-3.0-3.0); BLOOD TYPE ARTERIAL; HCO3-(ACT) 23.5 mmoll (20.0-26.0); METHB 1.1 % (0.0-1.5); O2(CT) 15.3 mL/dL (15.0-23.0); O2HB 94.2 % (95.0-99.0); PCO2(98.6) 38 mmHg (35-45); PO2(98.6) 89 mmHg (60-100); SAMPLE BLOOD; SAO2 97.3 % (95.0-100.0); THB 11.5 g/dL (11.5-17.4); pH(98.6) 7.39 (7.35-7.45)
[2019-05-19 13:40] LABS: ALLEN TEST YES; MODALITY CANNULA
--- NOTE | 2019-05-19 14:10 | Diag Imaging Result Doc PS360 ---
EXAM: US RENAL 2 (RETROPER) COMPLETE HISTORY: pain TECHNIQUE: Renal ultrasound COMPARISON: None. FINDINGS: The right kidney measures 10.6 x 4.3 x 4.5 cm. The left kidney measures 11.6 x 5.4 x 6.4 cm. There are several scattered right renal cysts. The largest measures 2.8 cm. Normal renal echotexture and cortical thickness. No stone or hydronephrosis. There is a Thornton catheter in the urinary bladder. IMPRESSION: Scattered right renal cyst, otherwise normal exam. Electronically signed by Tone Zavala 05/19/2019 2:08 PM
[2019-05-19 15:26] VITALS: BP 110/66
== END 2019-05-19 18:00 | DRG 191 ==
LOC: P.ED 12:42 → P.MEDSURG 15:44
PROVIDERS: ADMIT Internal Medicine; ATTEND Internal Medicine

== ENCOUNTER 2019-06-24 17:09 | Inpatient (IN) ==
[~2019-06-24 17:09] MED LIST changes: -NS 1,000 ML IV ONE; -SOLU-MEDROL IV ONE; -VANCOMYCIN 1 GM/NS 1 GM/250 ML IVPB IV ONE; -ZOSYN 4.5 GM in NS 100 ML IV ONE
--- NOTE | 2019-06-24 17:11 | PROVIDER DOCUMENTATION ---
HPI-Respiratory General - General Chief Complaint: Hip Injury Stated Complaint: HIP PAIN Time Seen by Provider: 06/24/19 17:00 Source: patient Allergies/Adverse Reactions: Patient Allergies Allergy/AdvReac Type Severity Reaction Status Date / Time No Known Allergies Allergy Verified 06/24/19 17:37 Home Medications: Home Medication List Medication Instructions Recorded Confirmed Last Taken Type Amlodipine Besylate 2.5 mg PO DAILY 04/23/19 05/14/19 04/22/19 History Levothyroxine Sodium 25 mcg PO DAILY 04/23/19 05/14/19 04/22/19 History Losartan Potassium 100 mg PO DAILY 04/23/19 05/14/19 04/22/19 History Omeprazole 40 mg PO DAILY 04/23/19 05/14/19 04/22/19 History Pregabalin 150 mg PO BID 04/23/19 05/14/19 04/22/19 History Rivaroxaban [Xarelto] 20 mg PO DAILY 04/23/19 05/14/19 04/22/19 History Sertraline HCl 150 mg PO DAILY 04/23/19 05/14/19 04/22/19 History Acetaminophen [Tylenol] 650 mg PO Q6H PRN PRN tab 05/02/19 05/14/19 Unknown Rx Albuterol 2.5MG/Ipratrop 0.5MG 3 ml INH RTQ4H neb 05/02/19 05/14/19 Unknown Rx [Duoneb (A & A)] Menthol/Zinc Oxide Ointment 1 gm TOP PRN PRN tube 05/02/19 05/14/19 Unknown Rx [Calmoseptine Ointment] - History of Present Illness-Resp Nature of Presenting Problem: 84 YOM FOR WHICH EMS WAS INITIALLY CALLED FOR A FALL PRESENTS WITH SOB, WHEEZING, HYPOXIA. HE HAS A PMH OF CHF/COPD. HE C/O L LEG CRAMPING. HE IS VERY DIOMEDE BUT REPORTS HE AHS HAD INCREASED SOB OVER THE LAST "LITTLE WHILE" THE PATIENT IS A POOR HISTORIAN WELL AND THERE IS NO FAMILY AT BEDSIDE. HE DENIES FEVER, CHILLS, N/V/D. REPORTS HE FELL DUE TO A CRAMP IN IS LEFT LEG. UPON EMS ARRIVAL HE WAS ON 15L/NRB AND TRANSITIONED BY APPLICATIONS PACKAGER TO HOME O2 OF 4 LITERS. WHERE HE IS SATTING 92% CURRENTLY Quality of Pain: reports: cramping Severity in ED: reports: moderate Onset/Duration: reports: just prior to arrival Timing: reports: still present Context: reports: other (COPD/CHF) Cough Quality/Degree: reports: moderate Modifying Factors: improves with: oxygen, rest, sitting upright Associated Symptoms: reports: cough, short of breath Similar Symptoms Previously?: Yes Recently seen or treated by another doctor?: No Review of Systems - Adult - REVIEW OF SYSTEMS - ADULT Constitutional: reports: no symptoms reported. denies: see HPI, chills, fever, fatique, night sweats, weight gain, weight loss, other Eyes: reports: no symptoms reported. denies: see HPI, discharge, dry eyes, decreased vision, blurred vision, double vision, eye pain, redness, other Ears, Nose, Mouth & Throat: reports: no symptoms reported. denies: see HPI, ear discharge, ear pain, hearing loss, tinnitus, epistaxis, sinus problem, nose pain, loose teeth, mouth/dental pain, mouth swelling, hoarseness, throat pain, throat swelling, other Cardiovascular: reports: no symptoms reported. denies: see HPI, chest pain, edema, heart murmur, irregular heart rate, orthopnea, palpitations, poor circulation, PND, syncope, other Respiratory: reports: see HPI, cough, shortness of breath, wheezing. denies: no symptoms reported, chronic cough, dyspnea on exertion, excessive sputum production, hemoptysis, pleurisy, other Gastrointestinal: reports: no symptoms reported. denies: see HPI, abdominal pain, hematemesis, constipation, diarrhea, difficulty swallowing, frequent heartburn, nausea, poor appetite, rectal bleeding, vomiting, other Genitourinary: reports: no symptoms reported. denies: see HPI, dysuria, discharge, frequency, flank pain, frequent UTI's, hematuria, hesitency, i ncontinence, urinary retention, urgency, other Musculoskeletal: reports: see HPI, bone pain, joint pain. denies: no symptoms reported, back pain, frequent leg cramps, joint swelling, muscle aches, muscle weakness, neck pain, other Integumentary: reports: no symptoms reported. denies: see HPI, hives, hair loss, itching, mole changes, nail changes, rash, skin sores/ulcer, skin thickening, other Neurological: reports: no symptoms reported. denies: see HPI, ataxia, dizzin ess/vertigo, headache/migraines, loss of balance, numbness, paresthesia, seizure, slurred speech, syncope, tremors, other Psychiatric: reports: no symptoms reported. denies: see HPI, anxiety, anti- depressant use, alcohol/drug dependence, depression, emotional problems, inso mnia, panic attacks, suicidal thoughts, other Endocrine: reports: no symptoms reported. denies: see HPI, change in skin pigment, excessive sweating, goiter, cold intolerance, heat intolerance, increased hunger, increased thirst, polyuria, other Hematologic/Lymphatic: reports: no symptoms reported. denies: see HPI, blood clots, easy bruising, low blood count, lymphedema, prolonged bleeding, swollen lymph nodes, transfusions, other Allergic/Immunologic: reports: no symptoms reported. denies: see HPI, allergic reactions, allergic rhinitis, asthma, eczema, food allergy, frequent infections, hay fever, hives, positive PPD, urticaria, other Past History - Adult - PAST MEDICAL HISTORY-ADULT Review of Records: reports: Nursing Assessment Review, Social history reviewed & non-contributory. Major Childhood Illnesses: reports: denies history Cardiovascular: reports: A-Fib, CHF, HTN Respiratory: reports: COPD Gastrointestinal: reports: cancer (prostate) Obstetrical/Gynecological: reports: denies history Genitourinary: reports: prostate cancer Musculoskeletal: reports: denies history Neurological: reports: CVA Endocrine/Immune: reports: denies history Other Conditions: reports: other cancer (skin) - PRIOR SURGERIES/PROCEDURES Surgical/Procedure History: reports: other (TURP) - IMMUNIZATION STATUS Childhood Immunizations: See Nurse Assessment Flu Vaccine: See Nurse Assessment - FAMILY HISTORY Family History: reviewed, not pertinent Physical Exam-General - PHYSICAL EXAM-ADULT Initial Vital Signs Reviewed: Yes - CONSTITUTIONAL General Appearance: alert, mild distress - EYES Eyes: PERRL/EOMI, pink conjunctivae - HEAD, EARS, NOSE, MOUTH & THROAT HENMT: normocephalic/atraumatic, moist mucous membranes, normal ENT inspection - NECK Neck: non-tender, full range of motion, supple - RESPIRATORY Respiratory: chest non-tender, lungs clear, normal breath sounds, no pleuratic chest pain, no respiratory distress, no accessory muscle use - CARDIOVASCULAR Cardiovascular: normal peripheral pulses, regular rate, rhythm, no edema, no gallop, no JVD, no murmur - GASTROINTESTINAL (ABDOMEN) Abdominal Exam: normal bowel sounds, non tender, soft - LYMPHATIC Lymphatic: no adenopathy - MUSCULOSKELETAL Back Exam: normal inspection, no CVA tenderness, no vertebral tenderness Extremity: non-tender, normal inspection, no pedal edema. negative: deformity, swelling, tenderness Peripheral Pulses: radial (R): 2+, radial (L): 2+ DTR: bicep (R): 2+, bicep (L): 2+ - SKIN Integumentary: normal color, normal turgor, warm/dry - NEUROLOGIC Neurologic: grossly normal, other (DIOMEDE) - PSYCHIATRIC Psych/Mental Status: normal mood/affect - HEART Score HEART Score: History: Slightly Suspicious HEART Score: Age: > or = 65 Years HEART Score: Risk Factors for Atherosclerotic Disease: > or = 3 Risk Factors or History of Atherosclerotic Disease Progress - PLAN OF CARE/RESULTS Progress/Plan/Lab Results: Vital Signs - 8 hr 06/24/19 17:02 06/24/19 17:04 06/24/19 17:34 Temperature 98.0 F Pulse Rate 81 Respiratory Rate 28 H 22 Blood Pressure 115/49 115/49 106/76 O2 Sat by Pulse Oximetry 99 95 06/24/19 17:35 06/24/19 18:18 06/24/19 18:25 Temperature Pulse Rate 91 H 80 Respiratory Rate 26 H 22 Blood Pressure 66/59 82/48 O2 Sat by Pulse Oximetry 99 94 L 06/24/19 18:35 Temperature Pulse Rate 84 Respiratory Rate 20 Blood Pressure 82/66 O2 Sat by Pulse Oximetry 94 L Laboratory Results - last 24 hr 06/24/19 06/24/19 06/24/19 17:25 17:25 17:25 WBC 8.16 RBC 3.63 L Hgb 9.3 L Hct 29.4 L MCV 81.0 MCH 25.6 L MCHC 31.6 L RDW Std Deviation 16.8 H Plt Count 260 MPV 10.0 Immature Gran % (Auto) 0.2 Neut % (Auto) 88.1 H Lymph % (Auto) 4.8 L [place] % (Auto) 6.7 Eos % (Auto) 0.2 Baso % (Auto) 0.0 Immature Gran # (Auto) 0.02 Neut # (Auto) 7.18 H Lymph # (Auto) 0.39 L [place] # (Auto) 0.55 Eos # (Auto) 0.02 Baso # (Auto) 0.00 Segmented Neutrophils Not Reportable PT INR PTT (Actin FS) Specimen Type Sample Site pH pCO2 pO2 HCO3 Base Excess Oxyhemoglobin ABG O2 Sat (Calculated) ABG O2 Saturation ABG Carboxyhemoglobin ABG Methemoglobin Kwesi Test A-a O2 Difference Total Hemoglobin Lactate Liter Flow Blood Gas Modality FiO2 % Sodium 125 L Potassium 4.7 Chloride 88 L Carbon Dioxide 24 L Anion Gap 13 BUN 28 H Creatinine 1.4 H Estimated GFR/1.73 m2 48 BUN/Creatinine Ratio 20 Glucose 117 H Calculated Osmolality 258 Calcium 9.2 Total Bilirubin 0.40 AST 33 ALT 17 Alkaline Phosphatase 85 Troponin T High Sens 42 H* Cjp-A-Nuugiftmxob Pept Total Protein 7.1 Albumin 4.0 Globulin 3.0 Albumin/Globulin Ratio 1.0 Plasma Lactate 06/24/19 06/24/19 06/24/19 17:25 17:25 17:25 WBC RBC Hgb Hct MCV MCH MCHC RDW Std Deviation Plt Count MPV Immature Gran % (Auto) Neut % (Auto) Lymph % (Auto) [place] % (Auto) Eos % (Auto) Baso % (Auto) Immature Gran # (Auto) Neut # (Auto) Lymph # (Auto) [place] # (Auto) Eos # (Auto) Baso # (Auto) Segmented Neutrophils PT 16.6 H INR 1.27 PTT (Actin FS) 49.7 H Specimen Type Sample Site pH pCO2 pO2 HCO3 Base Excess Oxyhemoglobin ABG O2 Sat (Calculated) ABG O2 Saturation ABG Carboxyhemoglobin ABG Methemoglobin Kwesi Test A-a O2 Difference Total Hemoglobin Lactate Liter Flow Blood Gas Modality FiO2 % Sodium Potassium Chloride Carbon Dioxide Anion Gap BUN Creatinine Estimated GFR/1.73 m2 BUN/Creatinine Ratio Glucose Calculated Osmolality Calcium Total Bilirubin AST ALT Alkaline Phosphatase Troponin T High Sens [id number]-[id number]-Uhzqjmsgdhz Pept 3273 H Total Protein Albumin Globulin Albumin/Globulin Ratio Plasma Lactate 0.9 06/24/19 17:30 WBC RBC Hgb Hct MCV MCH MCHC RDW Std Deviation Plt Count MPV Immature Gran % (Auto) Neut % (Auto) Lymph % (Auto) [place] % (Auto) Eos % (Auto) Baso % (Auto) Immature Gran # (Auto) Neut # (Auto) Lymph # (Auto) [place] # (Auto) Eos # (Auto) Baso # (Auto) Segmented Neutrophils PT INR PTT (Actin FS) Specimen Type ARTERIAL Sample Site R RADIAL pH 7.37 pCO2 41 pO2 87 HCO3 23.7 Base Excess -1.5 Oxyhemoglobin 95.0 ABG O2 Sat (Calculated) 12.2 L ABG O2 Saturation 97.6 ABG Carboxyhemoglobin 1.50 ABG Methemoglobin 1.1 Kwesi Test YES A-a O2 Difference 147.0 Total Hemoglobin 9.0 L Lactate 0.60 Liter Flow 5.0 Blood Gas Modality CANNULA FiO2 % 40.0 Sodium Potassium Chloride Carbon Dioxide Anion Gap BUN Creatinine Estimated GFR/1.73 m2 BUN/Creatinine Ratio Glucose Calculated Osmolality Calcium Total Bilirubin AST ALT Alkaline Phosphatase Troponin T High Sens Vee-D-Dlxzqlmeqnb Pept Total Protein Albumin Globulin Albumin/Globulin Ratio Plasma Lactate Orders Category Date Time Status Nursing- Obtain EKG ONCE Care 06/24/19 18:23 Active CHEST-1 VIEW [RAD] Stat Exams 06/24/19 16:57 Completed XRAY HIP W/PELVIS BILAT 3-4VWS [RAD] Stat Exams 06/24/19 16:57 Completed ABG [RESP] Routine Lab 06/24/19 17:30 Completed BC [BLOOD CULTURE] [BLDCUL] Stat Lab 06/24/19 17:25 Ordered CBC WITH ELECTRONIC DIFF [HEME] Stat Lab 06/24/19 17:25 Completed COMPREHENSIVE METABOLIC PANEL [CHEM] Stat Lab 06/24/19 17:25 Completed LACTATE, PLASMA [CHEM] Stat Lab 06/24/19 17:25 Completed PRO B-NATRIURETIC PEPTIDE Stat Lab 06/24/19 17:25 Completed PT [PROTIME WITH INR] [COAG] Stat Lab 06/24/19 17:25 Completed PTT [COAG] Stat Lab 06/24/19 17:25 Completed TROPONIN T HIGH SENSITIVITY Stat Lab 06/24/19 17:25 Completed URINALYSIS W/POSS RFLX CULT [URINALYSIS] Stat Lab 06/24/19 18:23 Uncollected 0.9% Sodium Chloride Inj [Ns] 1,000 ml Med 06/24/19 18:25 Discontinued .ROUTE As directed 0.9% Sodium Chloride Inj [Ns] 1,000 ml Med 06/24/19 18:26 Active IV 999 mls/hr Albuterol 2.5MG/Ipratrop 0.5MG [Duoneb (A & A)] Med 06/24/19 16:58 Discontinued 3 ml INH NOW ONE Morphine Med 06/24/19 18:20 Discontinued 4 mg IV NOW ONE Ondansetron [Zofran] Med 06/24/19 18:20 Discontinued 8 mg IV NOW ONE Aerosol Treatments Routine Oth 06/24/19 16:58 Completed Aerosol Treatments Stat Oth 06/24/19 16:58 Completed EKG [EKG] Stat Ther 06/24/19 17:01 Draft EKG [EKG] Stat Ther 06/24/19 18:23 Ordered Result Diagrams: 06/24/19 17:25 06/24/19 17:25 - EKG 1 Time of EKG reading by physician:: 17:27 EKG Read and Signed by:: Michael Sung EKG Interpretation (*Must complete 3 of following elements*): Abnormal Rate: 101 Rhythm: A-FIB [place]: normal QRS: RBB (CHRONIC) DE Interval: normal ST Wave: non-specific ST changes Prior EKG Comparison: unchanged from prior - XRAY 1 XRAY: Left XRAY Study: Hip Impression: Abnormal (intertroch hip fx) 2 XRAY Study: Chest Impression: Abnormal (copd) Comparison with other Films: no changes - CHANGE OF SHIFT REPORT (ED Provider) 1 Report Given and Care Transferred to:: DR SUNG Time of Transfer: 18:00 Departure - Departure Date of Disposition Decision: 06/24/19 Time of Disposition Decision: 18:29 DIAGNOSIS: COPD exacerbation Intertrochanteric fracture of left hip Qualifiers: Encounter type: initial encounter Fracture type: closed Fracture alignment: displaced Qualified Code(s): S72.142A - Displaced intertrochanteric fracture of left femur, initial encounter for closed fracture Disposition: ADMITTED INPATIENT 09 Certified Medical Emergency: Emergent Condition: Good Referrals and Follow-Ups: None,PCP [Primary Care Provider] - - Critical Care Note This patient required my direct & personal management of CC.: No Attestation - Physician/ FREIDA Attestation Patient care was provided by Advanced Practice Provider:: Yes Advanced Practice Provider documentation review:: The Mid-level provider documentation, treatment plan and medical decision making was reviewed by the physician who agrees with all treatment and medical decision making by the MLP. The physician spent face to face time with patient:: Yes Advanced Practice Provider documentation review:: Supervising physician onsite and consulted in the evaluation and care of this patient. The physician did have a face to face encounter with the patient.
[2019-06-24 17:39] LABS: EOS# 0.02 X1000 (0.0-0.7); EOS% 0.2 % (0.0-10.0); HEMATOCRIT 29.4 % (42.0-52.0); HEMOGLOBIN 9.3 g/dL (14.0-18.0); IMM GRAN# 0.02 X1000 (0.0-0.04); IMM GRAN% 0.2 % (0.0-0.5); LYMPH# 0.39 X1000 (1.2-3.4); LYMPH% 4.8 % (20.5-51.1); MCH 25.6 PG (27-31); MCHC 31.6 g/dL (33-37); MONO# 0.55 X1000 (0.11-0.59); MONO% 6.7 % (1.7-9.3); NEUT# 7.18 X1000 (1.4-6.5); NEUT% 88.1 % (42.2-75.2); PLT 260 X1000 (130-400); RBC 3.63 XMIL (4.7-6.1); RDW 16.8 % (11.5-14.5); WBC 8.16 X1000 (4.8-10.8)
[2019-06-24 17:42] LABS: BE -1.5 mmoll (-3.0-3.0); BLOOD TYPE ARTERIAL; HCO3-(ACT) 23.7 mmoll (20.0-26.0); METHB 1.1 % (0.0-1.5); O2(CT) 12.2 mL/dL (15.0-23.0); PCO2(98.6) 41 mmHg (35-45); PO2(98.6) 87 mmHg (60-100); SAMPLE BLOOD; SAO2 97.6 % (95.0-100.0); pH(98.6) 7.37 (7.35-7.45)
[2019-06-24 17:45] LABS: ALLEN TEST YES; MODALITY CANNULA
--- NOTE | 2019-06-24 17:47 | EKG Report ---
Test Performed on : 06/24/2019 5:25:51 PM Test Reason : SOB Blood Pressure : / mmHG Vent. Rate : 101 BPM Atrial Rate : 119 BPM P-R Int : 000 ms QRS Dur : 146 ms QT Int : 372 ms P-R-T Axes : 000 079 -23 degrees QTc Int : 482 ms Atrial fibrillation. with rapid ventricular response. Right bundle branch block T wave abnormality, consider inferior ischemia Abnormal ECG When compared with ECG of 14-MAY-2019 13:07, (Unconfirmed) No significant change was found Unconfirmed Result
[2019-06-24 18:01] LABS: CALCIUM 9.2 mg/dL (8.8-10.2); CREATININE 1.4 mg/dL (0.7-1.2); POTASSIUM 4.7 mmol/L (3.5-5.1); TOTAL BILIRUBIN 0.4 mg/dL (0.20-1.00); TOTAL PROTEIN 7.1 g/dL (6.3-8.3)
[2019-06-24] MEDS ORDERED: MORPHINE IV ONE (18:20)
[2019-06-24] MEDS ORDERED: ZOFRAN IV ONE (18:20)
[2019-06-24] MEDS ORDERED: NS 1,000 ML ONE (18:25)
[2019-06-24] MEDS ORDERED: NS 1,000 ML IV ONE (18:26)
--- NOTE | 2019-06-24 18:27 | Diag Imaging Result Doc PS360 ---
EXAM: CHEST-1 VIEW INDICATION: SOB TECHNIQUE: One view COMPARISON: 05/14/2019 FINDINGS: There is a stable chronic loculated pleural fluid collection on the right. There are interstitial infiltrates at the lung bases similar to the previous study likely representing edema +/- pneumonia. There is stable cardiomegaly. IMPRESSION: Bibasilar infiltrates suggesting pulmonary edema +/- pneumonia and a chronic loculated right effusion. Electronically signed by Chris Juan 06/24/2019 6:25 PM
--- NOTE | 2019-06-24 18:30 | Diag Imaging Result Doc PS360 ---
EXAM: XRAY HIP W/PELVIS BILAT 3-4VWS INDICATION: FALL TECHNIQUE: 5 views COMPARISON: None. FINDINGS: There is a fracture through the left femoral neck with mild displacement. No fracture is identified on the right. There is no evidence of pelvic fracture. There are mild degenerative changes at the hips. There are degenerative changes at the lower lumbar spine. Metallic clips project over the pelvis suggesting a likely prior prostatectomy. IMPRESSION: Fracture of the left femoral neck as described. Electronically signed by Chrsi Juan 06/24/2019 6:28 PM
[2019-06-24 18:40] LABS: INR 1.27; PROTIME 16.6 Seconds (11.0-16.0)
[2019-06-24 18:41] LABS: PTT 49.7 Seconds (22.3-41.8)
[2019-06-24] MEDS ORDERED: ZOFRAN IV PRN (18:52)
[2019-06-24] MEDS ORDERED: NS 500 ML IV ONE (19:18)
[2019-06-24] MEDS ORDERED: TYLENOL PO ONE (19:19)
[2019-06-24] MEDS ORDERED: LEVOPHED 8 MG in D5 1/2 NS 250 ML IV SCH (19:30)
[2019-06-24] MEDS: OFIRMEV 1000 MG/ISOTONIC SOLN 1,000 MG/100 ML BOTTLE IV SCH (19:35)
[2019-06-24] MEDS: DUONEB (A & A) INH PRN (21:20)
[2019-06-24 21:49] LABS: URINE SOURCE CATH
[2019-06-24] MEDS: MORPHINE IV PRN (21:51)
[2019-06-24] MEDS: MAXIPIME 1 GM in NS 50 ML IV SCH (21:52)
[2019-06-24 22:28] LABS: BILIRUBIN URINE NEGATIVE (NEGATIVE); BLOOD URINE NEGATIVE (NEGATIVE); COLOR YELLOW; GLUCOSE URINE NEGATIVE (NEGATIVE); KETONE URINE NEGATIVE (NEGATIVE); LEUKOCYTES URINE NEGATIVE (NEGATIVE); NITRITE URINE NEGATIVE (NEGATIVE); PROTEIN URINE TRACE mg/dL (NEGATIVE); SP GRAVITY URINE 1.017; TURBIDITY URINE CLEAR (CLEAR); UR EPITHELIAL CELLS <10 /HPF (<10); URINE BACTERIA NEGATIVE /HPF; URINE RBC <10 /HPF (<10); URINE WBC <10 /HPF (<10); UROBILINOGEN URINE NORMAL (NORMAL)
[2019-06-24] MEDS: ZYVOX 600 MG/D5W 600 MG/300 ML IVPB IV SCH (23:44)
--- NOTE | 2019-06-25 01:00 | HISTORY AND PHYSICAL ---
CHIEF COMPLAINT: Fall, wheezing, shortness of breath. HISTORY OF PRESENT ILLNESS: This is an 84-year-old gentleman with a history of COPD, congestive heart failure, chronic atrial fibrillation, hypertension, hypothyroid. He presents to the emergency room via EMS after falling and sustaining a left femur fracture. Mr. Clarke states that he has been having increasing trouble breathing over the last "little while." He was trying to walk across the room today and developed a cramp in his leg causing him to fall. He denied any fevers or chills. Mr. Clarke states that he uses O2 at 4 L at home and that for the last little while that he has not been comfortable having to turn his oxygen up although he is unsure exactly how high he did turn it. On arrival to the emergency room, he was on a non- rebreather having saturations of 94,95. He has since been weaned down and is currently on 4 L with saturations 96% to 97%. Hip and pelvis x-ray revealed a fracture of the left femoral neck with mild displacement. No evidence of pelvic fracture. Chest x-ray revealed bilateral infiltrates and a chronic loculated right effusion. PAST MEDICAL HISTORY: 1. Chronic atrial fibrillation with chronic anticoagulation. 2. Congestive heart failure. 3. Hypertension. 4. Chronic obstructive pulmonary disease. 5. Prostate cancer status post TURP. 6. Previous stroke. SOCIAL HISTORY: He lives with his . He denies any alcohol, tobacco, or illicit drug use. He is unsure of family history. ALLERGIES: No known drug allergies. HOME MEDICATIONS: A list will be obtained by the nursing staff and once verified we will review and restart as appropriate. PHYSICAL EXAMINATION: GENERAL: This is an 84-year-old gentleman who is lying on the stretcher in the emergency room in mild distress. VITAL SIGNS: Blood pressure is 92/60 with a heart rate of 84, respirations are 20, temperature is 98 degrees oral with O2 saturations that are 94% on 3 L nasal cannula. HEENT: Head is normocephalic, atraumatic. Mucous membranes are moist. NECK: Supple with trachea midline. CARDIOVASCULAR: Irregularly irregular rate and rhythm. S1 and S2 appreciated. No murmur. No lower extremity edema. Peripheral pulses are palpable x4 extremities. PULMONARY: Breath sounds are clear with no increased work of breathing noted. He is diminished in the bases. Chest rises and falls symmetric with respiration. GASTROINTESTINAL: Abdomen is soft, nontender, nondistended with bowel sounds in all 4 quadrants. NEUROLOGIC: He is alert and oriented. He is very hard of hearing. SKIN: Warm and dry. LABORATORIES: 1. WBC is 8.1 with hemoglobin 9.3, hematocrit 29.4 and platelets of 260,000. INR is 1.27. Sodium is 125, potassium 4.7, BUN 28, creatinine 1.4 with a glucose of 117. Troponin is 42 with a proBNP of 3273 which is pretty well consistent with his prior levels. Blood cultures have been obtained. 2. Chest x-ray revealed bibasilar infiltrates suggesting pulmonary edema plus or minus pneumonia with a chronic loculated right effusion. 3. Hip and pelvis x-ray reveals a fracture through the left femoral neck with mild displacement. 4. EKG reveals atrial fibrillation. ASSESSMENT AND PLAN: 1. Left mildly displaced femur fracture. 5 pounds of Felix's traction. I did discuss this with Dr. Torrez. We will transfer him to [facility]. He will evaluate the patient in the morning. 2. Hypotension. He is receiving a fluid bolus at present. We will start Levophed if needed per protocol. 3. Bilateral lower lobe infiltrates versus pneumonia. Blood cultures have been obtained. We will start antibiotic coverage of cefepime and Zyvox and further antibiotics will be culture driven. 4. Loculated pleural effusion. We will get a CT of the thorax without contrast in the morning. 5. Hyponatremia. He received IV hydration. He received boluses in the emergency room. We will continue with gentle hydration and trend labs. Recheck labs in the morning. 6. Chronic kidney disease. Creatinine is 1.4. His had ranged 1.5 to 2.4 over the last 4 weeks. We will hold any renal toxic medications. Renal dose as appropriate. Hydrate and repeat labs in the morning. 7. Elevated troponin. EKG reveals atrial fibrillation at a rate of 101. We will continue to trend troponins. 8. Chronic obstructive pulmonary disease acute exacerbation. DuoNeb q.4 hours and q.2 hours p.r.n. 9. Hypoxemic respiratory failure. We will give supplemental oxygen. 10. Pain. We are unable to give narcotics at present as the patient's pressure has been ranging from 70 to 100. We will give IV Tylenol q.6 hours x4 and apply Felix's traction. 11. Chronic atrial fibrillation on chronic anticoagulation. The patient had Xarelto this morning. We will hold Xarelto. 12. We will continue to trend troponins. We will check a CBC, CMP and a TSH in the morning. We will place a Thornton catheter and urine culture. Identify his home medications and once verified we will review and restart as appropriate. 13. He will be placed on telemetry. 14. Plan was discussed with Dr. Walter. Further treatments pending hospital course. Dictated by JEY Vargas for Kike Walter MD cc: JEY Vargas MD [facility]
[2019-06-25] MEDS: OFIRMEV 1000 MG/ISOTONIC SOLN 1,000 MG/100 ML BOTTLE IV SCH ×3 (01:55→14:27)
[2019-06-25] MEDS: MORPHINE IV PRN ×5 (01:55→23:28)
[2019-06-25] MEDS: PRILOSEC PO SCH (06:17)
[2019-06-25 06:30] LABS: BASO# 0.01 X1000 (0.0-0.2); BASO% 0.2 % (0.0-0.8); EOS% 3.1 % (0.0-10.0); HEMATOCRIT 26.3 % (42.0-52.0); HEMOGLOBIN 8.3 g/dL (14.0-18.0); LYMPH# 0.56 X1000 (1.2-3.4); LYMPH% 8.6 % (20.5-51.1); MCH 25.9 PG (27-31); MCHC 31.6 g/dL (33-37); MCV 82.2 FL (81-99); MONO# 0.53 X1000 (0.11-0.59); MONO% 8.1 % (1.7-9.3); MPV 10.1 FL (7.4-10.4); NEUT# 5.24 X1000 (1.4-6.5); PLT 201 X1000 (130-400); RDW 16.7 % (11.5-14.5); WBC 6.54 X1000 (4.8-10.8)
[2019-06-25 06:53] LABS: ALBUMIN 3.1 g/dL (3.5-5.0); CALCIUM 8.5 mg/dL (8.8-10.2); CREATININE 1.3 mg/dL (0.7-1.2); POTASSIUM 4.5 mmol/L (3.5-5.1); TOTAL BILIRUBIN 0.39 mg/dL (0.20-1.00); TOTAL PROTEIN 6.2 g/dL (6.3-8.3)
[2019-06-25] MEDS: DUONEB (A & A) INH PRN (08:04)
[2019-06-25] MEDS: ZYVOX 600 MG/D5W 600 MG/300 ML IVPB IV SCH ×2 (08:58→21:18)
[2019-06-25] MEDS: MAXIPIME 1 GM in NS 50 ML IV SCH ×2 (08:59→20:34)
[2019-06-25] MEDS: SOLU-MEDROL IV SCH ×4 (12:09→23:20)
[2019-06-25] MEDS: DUONEB (A & A) INH SCH ×3 (12:10→20:27)
[2019-06-25] MEDS ORDERED: SAMSCA PO ONE (14:00)
--- NOTE | 2019-06-25 14:11 | CARDIOLOGY CONSULTATION ---
DATE: 06/25/2019 Cardiology was consulted. The patient has chronic atrial fibrillation, history of heart failure. The patient fell and fractured his left femur. An 84-year-old gentleman with history of COPD, chronic atrial fibrillation, hypertension, hypothyroidism, came to the emergency room via EMS after falling and sustained a left femoral fracture. This was not associated with syncope. His family was present and I discuss with them he tripped and fell backwards and sustained the injury. He has COPD as well and uses oxygen at home. He was on nonrebreather in the hospital in [place] subsequently when he was transferred here from [facility] and is currently on 4 L oxygen. Hip and pelvis x-ray revealed left femoral neck fracture with mild displacement. Chest x-ray revealed bilateral infiltrates. Patient does not complain of chest pain. Complains of pain at the site of his fracture. He has chronic shortness of breath. Does not perceive any palpitations. There is no syncope. REVIEW OF SYSTEM: A 14-point review of systems was done.GI: There is no history of nausea, vomiting, or diarrhea. There is no history of hematemesis or melena. PAST MEDICAL HISTORY: 1. Chronic atrial fibrillation. 2. Chronic anticoagulation therapy. 3. History of congestive heart failure. 4. Hypertension. 5. COPD. 6. Prostate cancer status post TURP. 7. History of previous strokes. 8. He lives at home. MEDICATIONS: His medications at home included Xarelto 20, omeprazole 40, losartan 100, levothyroxine 25, amlodipine 2.5, pregabalin 150 mg p.o. b.i.d. ALLERGIES: He is not known to be allergic to any medication. PHYSICAL EXAMINATION: Blood pressure was 104/60. Jugular venous pressure could not be assessed. First and second heart sounds were heard. There was soft systolic murmur.Respiratory: Revealed bibasilar crepitations. Abdomen: Soft, nontender. There was no guarding or rigidity. Bowel sounds were heard. Central Nervous System: Patient is hard of hearing. Was alert. Detailed central nervous system examination not performed. LABORATORY EXAMINATION: Revealed WBC 6.54, hemoglobin 8.3, hematocrit 26, platelet count of 201,000. Troponins negative. Sodium 126, potassium 4.5, BUN 24, creatinine 1.3. ASSESSMENT AND PLAN: 1. Mr. Rigo Clarke is 82-year-old gentleman with history of chronic obstructive pulmonary disease, chronic atrial fibrillation, history of congestive heart failure. He fell and sustained a fracture. From a cardiac standpoint, electrocardiogram revealed atrial fibrillation, rate under control. 2. He was ruled out for myocardial infarction by cardiac enzymes. His chest x-ray suggested bibasilar infiltrates with pulmonary edema with loculated effusion. RECOMMENDATIONS: 1. We will get an echocardiogram to assess cardiac and valvular function. 2. We will give Lasix 40 mg IV now and b.i.d. 3. As his sodium was low and he has history of heart failure we will also give him Samsca per standard protocol. 4. He has sustained a fracture. He is on Xarelto which has been held. 5. As far as his rate control for atrial fibrillation is concerned, he is not on any medications to control his heart rate should it be abnormal we will give him Lanoxin 0.125 mg now and daily. 6. His thyroid profile was normal. 7. Thank you for the consult. We will follow hospital course. cc: Tee Baez MD
--- NOTE | 2019-06-25 15:20 | PROGRESS NOTE ---
DATE: 06/25/2019 INTERVAL HISTORY: The patient is extremely hard of hearing which makes communication challenging. He denies any current shortness of breath despite appearing to have some slightly increased work of breathing. Pain appears to be reasonably well-controlled. No acute events overnight. REVIEW OF SYSTEMS: Twelve point review of systems negative except as per interval history. LABS: WBCs 6.5, hemoglobin 8.3, hematocrit 26.3, platelets 201,000. Sodium 126, potassium 4.5, BUN 24, creatinine 1.3, glucose 110. Last troponin 38 which was unchanged from previous. Last lactate 0.9. BNP 3273, which is roughly similar to what he has had in the past. IMAGING: Chest x-ray with bibasilar infiltrates suggesting edema and possible pneumonia with a chronic loculated effusion on the right VITAL SIGNS: T-max 98.3 degrees, pulse 91, respirations 19, blood pressure 127/71, O2 saturation 98% on 4 L by nasal cannula. PHYSICAL EXAMINATION: General: No acute distress. Chronically ill-appearing. HEENT: Normocephalic, atraumatic. Dry mucus in both nares. Cardiovascular: Regular rate and rhythm. A 3/6 left upper sternal border murmur noted. Pulmonary: Diffuse rhonchi with scattered rales, worse at the bases, and moderate expiratory wheezing throughout. Abdomen: Soft, nontender, nondistended. Bowel sounds positive. Extremities: Peripheral pulses intact. No clubbing or cyanosis. Neurologic: Cranial nerves grossly intact. Mild global weakness but no apparent focal deficits. The patient is extremely hard of hearing but otherwise cranial nerves 2-12 are grossly intact. Psychiatric: Awake, alert, and cooperative. ASSESSMENT AND PLAN: 1. Left hip fracture. Given patient's extensive cardiac history as well as some active pulmonary issues, I would recommend putting off surgery at least 1 day but likely to surgery either tomorrow or Wednesday as long as cardiology is okay with that. The patient's leg is currently in traction. We will defer to orthopedic surgery on that. 2. Cardiac issues, atrial fibrillation, moderate aortic stenosis, pulmonary hypertension. These appear to be a roughly stable, although he has had a loculated effusion on his imaging for quite some time, which could be related to his cardiac issues. 3. Chronic obstructive pulmonary disease exacerbation. Still some wheezing. We will add some steroids and schedule his nebulizers to see if we can get that under control. He denies symptomatic dyspnea but does appear to have slightly increased work of breathing, although no accessory muscle use. He states that his breathing is always bad but this is not significantly different. 4. Possible pneumonia with loculated effusion. On chest x-ray, the patient does have what looks like likely bilateral lower lobe pneumonia to me but there is some chronicity to it, so we will try to get a CT of his chest to sort of clarify. It does not look like the effusion is likely to be large enough to get a tap on but given that it does appear loculated, if it looks like there is enough on CT for a thoracentesis, we will likely try to get that in the next day or two. 5. Chronic kidney disease 3. Kidney function approximately stable from previous. 6. Hyponatremia, moderate. Minimally improved today with fluids overnight. Appears to be a chronic issue for the most part, as almost all of his previous sodiums are in the low 130s. We will hold intravenous fluids. Depending on what cardiology says, we will likely restart some Lasix. Monitor sodium and see what it does. 7. Chronic hypoxic respiratory failure. Patient reportedly on 4 L of oxygen at home. Pretty reasonable oxygenation on that here, so appears to be largely chronic, although he certainly has little bit of chronic obstructive pulmonary disease exacerbation going on currently. We will monitor oxygenation. 8. Elevated troponin. Appears to be chronic and roughly similar to previous, and is not changing here. Likely chronic demand ischemia/type 2 myocardial infarction. Does not appear to have acute coronary syndrome. 9. Anemia, likely anemia of chronic disease. Appears similar to what he has had over the last couple months. Monitor.
[2019-06-25] MEDS: LASIX IV SCH ×2 (16:26→20:34)
[2019-06-25] MEDS: LANOXIN PO SCH (16:26)
--- NOTE | 2019-06-25 18:22 | HISTORY AND PHYSICAL ---
ADDENDUM: Patient is seen and examined by myself while in the ER. Full note dictated and discussed with nurse practitioner on the date of admission. Patient presented to the hospital with blood pressures low, bilateral pneumonia, and a left displaced femur fracture. He certainly is not currently a surgical candidate. He has been on Xarelto due to his chronic atrial fibrillation. We are going to place him in the hospital, obviously stop his Xarelto. Place him on Felix's traction, antibiotics, oxygen. Consult Orthopedics and will follow. cc: Kike Walter MD
[2019-06-25 21:21] LABS: CREATININE 1.4 mg/dL (0.7-1.2); POTASSIUM 4.5 mmol/L (3.5-5.1)
--- NOTE | 2019-06-25 22:00 | CONSULTATION ---
DATE OF CONSULTATION: 06/25/2019 CHIEF COMPLAINT: Fall. FAMILY PHYSICIAN: None. HISTORY OF PRESENT ILLNESS: Patient is 84-year-old gentleman with a history of COPD, congestive heart failure, chronic atrial fibrillation, hypertension, hypothyroidism that fell at home yesterday. He presented the emergency room at [facility] [*]with complaint left hip pain. X-rays confirmed a displaced femoral neck fracture. All information is taken from patient's son secondary to patient's marked hearing difficulties. He states that he lives at home with his . States he is normally a community ambulator. The patient has had multiple falls recently but patient reports this one is different. Unable to walk on the left lower extremity after the fall. The patient noted to have a [*] amount of wheezing and difficulty breathing and states he has been this way for "a little while." PAST MEDICAL HISTORY: 1. Chronic atrial fibrillation. 2. Chronic congestive heart failure . 3. Hypertension. 4. Chronic obstructive pulmonary disease. 5. Prostate cancer. 6. Previous cerebrovascular accident. PAST SURGICAL HISTORY: TURP procedure. CURRENT MEDICATION: As per list and chart review patient and son. ALLERGIES: No known drug allergies. SOCIAL HISTORY: Patient lives with his . Denies tobacco, alcohol, illicit drug use. FAMILY HISTORY: Reviewed with son is noncontributory. REVIEW OF SYSTEMS: Ten point review of systems obtained with the above-noted gross pertinent positives. PHYSICAL EXAM: The patient is currently in Felix traction on the left lower extremity. Calf is supple. Knees nontender palpation. There is pain in the hip log-rolling of extremity. No pain with pelvic compression. There is tenderness to palpation around the hip. X-RAYS: Multiple images left hip reveal displaced femoral neck fracture. IMPRESSION: Displaced left femoral neck fracture. PLAN: Continue with Felix traction. Medicine wants to take him taken down for CT scan and we have told was perfectly fine take him out of Felix traction to get CT chest. The patient has had difficulty with blood pressures so they have been walking a balance with the pain medicines on him. Continue do so as needed. Had a long discussion with him and his son regarding treatment options. His best option is left hip hemiarthroplasty. They understand he will have to be medically cleared prior to this. He takes Xarelto daily and has dose late yesterday afternoon. He has been off of Xarelto for 24 hours now, will continue to hold until surgery. He will need rehabilitation stay at discharge. cc: Ras Torrez DO
[2019-06-26] MEDS: DUONEB (A & A) INH SCH ×7 (00:14→23:34)
[2019-06-26] MEDS: PRILOSEC PO SCH (06:05)
[2019-06-26 06:22] LABS: CALCIUM 9.3 mg/dL (8.8-10.2); CREATININE 1.4 mg/dL (0.7-1.2); MAGNESIUM 1.6 mg/dL (1.5-2.7); POTASSIUM 4.4 mmol/L (3.5-5.1)
--- NOTE | 2019-06-26 06:34 | Diag Imaging Result Doc PS360 ---
CT THORAX W/O CONTRAST - 06/25/2019 INDICATION: effusion, pneumonia COMPARISON: 12/21/2018 FINDINGS: There is stable dominant pleural thickening at the lateral right lung base. Stable splenomegaly. Stable hiatal hernia. 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 Stable cardiomegaly. Stable vascular disease of the thoracic aorta and great vessels. Stable dilation of the ascending aorta. Stable advanced COPD. Stable pulmonary fibrosis in the lung bases. Major airways are all clear. Stable severe thoracic spondylosis. IMPRESSION: No change from prior. This exam was performed using automated exposure control, adjustment of mA or kV according to patient size, and/or use of iterative reconstruction technique Electronically signed by Jaspreet Madrid 06/26/2019 6:31 AM
[2019-06-26] MEDS: MORPHINE IV PRN ×2 (07:30→15:10)
[2019-06-26] MEDS: MAXIPIME 1 GM in NS 50 ML IV SCH ×2 (08:41→20:12)
[2019-06-26] MEDS: LANOXIN PO SCH (08:41)
[2019-06-26] MEDS: ZYVOX 600 MG/D5W 600 MG/300 ML IVPB IV SCH ×2 (08:41→21:06)
[2019-06-26] MEDS: LASIX IV SCH ×2 (08:41→20:12)
[2019-06-26] MEDS: SOLU-MEDROL IV SCH ×2 (11:38→23:30)
--- NOTE | 2019-06-26 13:17 | ECHO REPORT ---
ORDER DATE: 06/25/2019 MEASUREMENTS: Septal thickness 1.0, left ventricular internal diameter in diastole 4.8, posterior wall thickness 1.0, left ventricular internal diameter in systole 2.7, aortic root 4.2, left atrium 5.9. SUMMARY: 1. Technically difficult study due to limited acoustic window quality. 2. The aortic valve appears to be trileaflet and demonstrates moderate thickening/sclerosis, with reduced aortic valve leaflet mobility. Calculated aortic valve area by planimetry is 1.5 cm2. The peak gradient across the aortic valve is approximately 45 mmHg, with a mean gradient of 22 mmHg. The calculated aortic valve area by Doppler is 1.2 cm2. Moderate aortic stenosis is suggested. There is mild aortic regurgitation. Moderate mitral annular calcification is demonstrated. Tricuspid valve is without evidence of structural abnormality, while the pulmonic valve is not well demonstrated. There is tmnl-zz-gjeheotc tricuspid regurgitation. The estimated systolic PA pressure by Doppler is 70 mmHg, suggesting uedjmqvg-ae-[id number] pulmonary hypertension. The aortic root is mildly enlarged. 3. Normal left ventricular dimensions demonstrated. The estimated left ventricular ejection fraction appears to be at least 70%. No regional wall motion abnormality is evident. Moderate biatrial enlargement is demonstrated. Right ventricle is borderline enlarged with grossly preserved right ventricular systolic function. 4. No pericardial effusion. 5. Appearance of the inferior vena cava suggests normal central venous pressure. CONCLUSIONS: 1. Technically difficult study. 2. Moderate calcific aortic stenosis with mild aortic regurgitation. 3. Moderate mitral annular calcification. 4. Yyju-di-moihltme tricuspid regurgitation with bctylbgk-vv-askyfw pulmonary hypertension by Doppler. 5. Estimated left ventricular ejection fraction at least 70%. 6. Moderate biatrial enlargement. 7. Borderline right ventricular enlargement. cc: MD Tee Kern MD
[2019-06-26] MEDS ORDERED: SAMSCA PO ONE (13:37)
--- NOTE | 2019-06-26 13:55 | PROGRESS NOTE ---
DATE: 06/26/2019 SUBJECTIVE: The patient has no major complaints. Blood pressure 118/65, heart rate of 77, respiratory rate of 15, temperature 98.4 degrees, 98% on 4 L.Cardiovascular: Regular rate and rhythm. Pulmonary: Bilateral breath sounds he has diffuse wheezing. GI: Was soft, nontender, nondistended. Bowel sounds are positive. LABS: Creatinine 1.4. I do not have any other labs. PROBLEM LIST: 1. Acute respiratory failure related to pneumonia. He is on cefepime and Zyvox. Will continue for that. 2. Loculated pleural effusion that seems to be stable and he does not have significant effusion at this point as far as requiring further treatment. 3. Left hip fracture. Orthopedics is following, anticipate surgery at discretion of orthopedics which has still not transpired but we will continue to follow. 4. Chronic obstructive pulmonary disease exacerbation. Continue breathing treatments, steroids and follow. 5. Chronic renal failure, stable with hyponatremia which is a chronic issue for him. DISPOSITION: I think he is probably going to be as good of shape as he can be in for surgery so we will continue to monitor. Anticipate discharge at the discretion of when he is stable. cc: Gamaliel Mcdonnell MD
--- NOTE | 2019-06-26 16:33 | ORTHOPAEDICS PROGRESS NOTE ---
DATE: 06/26/2019 SUBJECTIVE DATA: Mr. Clarke is sitting in bed. He is currently in Felix traction and is comfortable. He is hard of hearing. OBJECTIVE DATA: Left lower extremity exam: He is in Felix traction. He is tender to palpation at the hip. He has a small superficial abrasion on the left knee. No other skin ulcerations or abrasions. He has good sensation to the foot. He is able move the toes. He has a 1+ pedal pulse. Mild generalized edema. ASSESSMENT: Left femoral neck fracture, displaced. PLAN: We are planning for a left hip hemiarthroplasty. This will be done once he is medically cleared. He was a little bit short of breath on exam today. He states he is feeling some better than when he 1st got admitted. We have been holding his Xarelto since Wednesday. We are going to check with Cardiology and the hospitalist, if he is medically cleared we will plan to do him today. Risks and benefits have been discussed with him. Risks include but not limited to damage to nerve, artery, vein, malunion, nonunion, hardware related issues, DVT, infection, poor wound healing, continued pain, and risk of general anesthesia. We will plan to get him done as soon as he is medically cleared. Dictated by JEY Spicer for Gerber Martinez MD cc: JEY Spicer
[2019-06-27] MEDS: MORPHINE IV PRN ×2 (01:02→10:06)
[2019-06-27] MEDS: DUONEB (A & A) INH SCH ×6 (03:48→23:02)
[2019-06-27 06:07] LABS: EOS# 0.01 X1000 (0.0-0.7); EOS% 0.1 % (0.0-10.0); HEMATOCRIT 31.2 % (42.0-52.0); IMM GRAN# 0.02 X1000 (0.0-0.04); IMM GRAN% 0.2 % (0.0-0.5); LYMPH# 0.23 X1000 (1.2-3.4); LYMPH% 2.4 % (20.5-51.1); MCH 25.8 PG (27-31); MCHC 32.1 g/dL (33-37); MCV 80.4 FL (81-99); MONO# 0.41 X1000 (0.11-0.59); MONO% 4.4 % (1.7-9.3); MPV 9.6 FL (7.4-10.4); NEUT# 8.73 X1000 (1.4-6.5); NEUT% 92.9 % (42.2-75.2); PLT 334 X1000 (130-400); RBC 3.88 XMIL (4.7-6.1); RDW 16.6 % (11.5-14.5)
[2019-06-27 06:27] LABS: ALBUMIN 3.6 g/dL (3.5-5.0); CALCIUM 9.4 mg/dL (8.8-10.2); CREATININE 1.6 mg/dL (0.7-1.2); MAGNESIUM 1.7 mg/dL (1.5-2.7); POTASSIUM 3.6 mmol/L (3.5-5.1); TOTAL BILIRUBIN 0.41 mg/dL (0.20-1.00); TOTAL PROTEIN 7.3 g/dL (6.3-8.3)
[2019-06-27] MEDS: PRILOSEC PO SCH (06:29)
[2019-06-27] MEDS: ZYVOX 600 MG/D5W 600 MG/300 ML IVPB IV SCH ×2 (08:03→20:42)
[2019-06-27] MEDS: LASIX IV SCH (08:03)
[2019-06-27] MEDS: MAXIPIME 1 GM in NS 50 ML IV SCH ×2 (08:03→19:53)
[2019-06-27] MEDS: LANOXIN PO SCH (10:11)
[2019-06-27] MEDS ORDERED: TYLENOL PO PRN (12:51)
[2019-06-27] MEDS: SOLU-MEDROL IV SCH ×2 (13:16→22:56)
--- NOTE | 2019-06-27 13:19 | PROGRESS NOTE ---
DATE: 06/27/2019 SUBJECTIVE: The patient has no major complaints. OBJECTIVE: Blood pressure 97/57, heart rate of 89, respiratory rate of 17, temperature 97.6 degrees, and 92% on 2 L.Cardiovascular: Regular rate and rhythm. Pulmonary: Bilateral breath sounds clear to auscultation. GI: Abdomen was soft, nontender, and nondistended. Bowel sounds are positive. Extremities: His left hip is in Felix's traction for left leg. LABORATORY DATA: White count is 9, hemoglobin and hematocrit 10 and 31, and platelets 334,000. Sodium 132 and creatinine 1.6. PROBLEM LIST: 1. Acute respiratory failure. Pneumonia. He is on cefepime and Zyvox. This will be day 3 on the cefepime, and Zyvox is also day 3. 2. Chronic obstructive pulmonary disease exacerbation, acute. We will continue breathing treatment steroids. We will try to wean steroids because of his surgery. 3. Left hip fracture. We will continue treatment. I think after cardiology assessment, he is ready for surgery without further testing. We will continue to monitor at the discretion of anesthesia about the spinal anesthesia. 4. Loculated pleural effusion. We will continue to monitor, that has resolved. 5. Chronic renal failure stable. DISPOSITION: If stable possibly, he will likely need rehab. We will look at that when more available. cc: Gamaliel Mcdonnell MD
[2019-06-27] MEDS ORDERED: TORADOL ONE (16:36)
[2019-06-27] MEDS ORDERED: DURAMORPH ONE (16:36)
[2019-06-27] MEDS ORDERED: CYKLOKAPRON 1,000 MG/NS 1,000 MG/100 ML IVPB ONE (16:37)
[2019-06-27] MEDS ORDERED: MARCAINE 0.25% PF ONE (16:37)
[2019-06-27] MEDS ORDERED: NEOSPORIN G.U. IRRIGANT ONE (16:37)
[2019-06-27] MEDS ORDERED: EXPAREL 1.3% ONE (16:37)
[2019-06-27] MEDS ORDERED: SODIUM CHLORIDE 0.9% ONE (16:37)
[2019-06-27] MEDS ORDERED: AMIDATE ONE (16:39)
[2019-06-27] MEDS ORDERED: XYLOCAINE-MPF 2% ONE (16:39)
[2019-06-27] MEDS ORDERED: FENTANYL ONE (16:40)
--- NOTE | 2019-06-27 16:47 | ORTHOPAEDICS PROGRESS NOTE ---
DATE: 06/27/2019 SUBJECTIVE DATA: Mr. Clarke is sitting in bed. He is still complaining of some left hip pain. OBJECTIVE DATA: Left hip: He is still in Felix's traction. He has good sensation to the foot. He has less than 2 second capillary refill. He has good sensation to the foot. ASSESSMENT: Left femoral neck fracture. PLAN: Cardiology and the Hospitalist believe he is ready to proceed with a bipolar today. We discussed risks and benefits again. We will plan to proceed today with a left hip hemiarthroplasty. Risks and benefits have been discussed. Risks include, but not limited to, damage to nerves, arteries, and veins, malunion, nonunion, hardware related issues, DVT, risk of infection, risk of poor wound healing, and risk of general anesthesia. The patient understands and wished to proceed. Dictated by JEY Spicer for Chris Hanks MD cc: JEY Spicer MD [facility]
[2019-06-27] MEDS ORDERED: OFIRMEV 1000 MG/ISOTONIC SOLN 1,000 MG/100 ML BOTTLE ONE (18:24)
[2019-06-27] MEDS ORDERED: NEO-SYNEPHRINE ONE (18:31)
--- NOTE | 2019-06-27 21:23 | OPERATIVE NOTE ---
PROCEDURE DATE: 06/27/2019 PREOPERATIVE DIAGNOSIS: Displaced left femoral neck fracture. POSTOPERATIVE DIAGNOSIS: Displaced left femoral neck fracture. PROCEDURE: Left hemiarthroplasty of the hip anterior. SURGEON: Chris Hanks MD SUPERVISOR DISPLAY FABRICATION: JEY Spicer Ms. was necessary for proper retraction and manipulation during the case. ANESTHESIA: General. COMPLICATIONS: None. PROCEDURE IN DETAIL: An 84-year-old male presents for hemiarthroplasty of the left hip. Risks, benefits and no guarantees were discussed and he is willing to proceed. He was taken to the operating room. Satisfactory anesthesia was obtained. He was transferred to the [place] table and the left hip prepped and draped in the usual sterile fashion. A time-out was taken to confirm operative site, procedure and patient. Afterwards an anterior approach to the left hip was undertaken through an incision, starting 1 cm distal and lateral to the anterior superior iliac spine and carried out 10 cm over the fascia of the tensor fascia chase. Dissection was carried down through the skin and the fascia of the tensor fascia chase split in line with the incision. Blunt dissection was utilized to go down to the anterior hip capsule along the inner membrane and Cobra retractors placed over the superior and inferior aspect of the femoral neck. A capsulotomy incision was made to expose the femoral neck fracture. A fresh femoral neck osteotomy was made with the oscillating saw, roughly 8 mm above the lesser trochanter. The femoral head was removed and sized, and noted to be a 54 outer diameter. The trial bipolar 54 head was placed in the acetabulum, with secure fixation. This was removed. The [place] table was then utilized to extend and externally rotate the femur and hip to allow broaching of the proximal femur. Sequential broaching with the Active Endpointsuy Actis broach was undertaken up to a size 6 stem, which had good axial and rotational stability. A standard neck collar with a +5 adapter and trial revealed good rastafari of leg length as well as stability. The trial stem was removed. An Actis size 6 standard collar stem was impacted in the proximal femur, with secure axial and rotational stability. A 54 outer diameter bipolar head with a 28 mm +5 inner diameter and neck length head was assembled on the back of the bipolar and impacted onto the Goldberg taper. The hip was then reduced. The C-arm was used to verify accurate reduction of the prosthesis. The wound was copiously irrigated with G.U. irrigant. It was injected with Exparel for pain management. It was closed in layers with a running V-Loc in the fascia of the tensor, followed by 2-0 Vicryl and skin closure with Prineo. A Hemovac drain was placed prior to closure of the wound to evacuate any hematoma. The patient was then recovered and transferred to the recovery room in stable condition. No intraoperative complications were noted. Instrument count and sponge count were correct at the time of closure. cc: Chris Hanks MD
[2019-06-27] MEDS ORDERED: OXY IR PO PRN (21:52)
[2019-06-27] MEDS ORDERED: ZOFRAN IV PRN (21:52)
[2019-06-27] MEDS ORDERED: MORPHINE IV PRN (21:52)
[2019-06-27] MEDS ORDERED: MILK OF MAGNESIA PO PRN (21:52)
[2019-06-27] MEDS ORDERED: FLU VACCINE IM ONE (22:00)
[2019-06-27] MEDS ORDERED: HALDOL IV PRN (22:00)
[2019-06-27] MEDS: NS 1,000 ML IV SCH (22:50)
[2019-06-27] MEDS: KEFZOL 1 GM/D5W 1 GM/50 ML IVPB IV SCH (22:53)
[2019-06-27] MEDS: LYRICA PO SCH (22:56)
[2019-06-27] MEDS: TYLENOL PO SCH (22:57)
[2019-06-28] MEDS: DUONEB (A & A) INH SCH ×6 (03:48→23:11)
[2019-06-28] MEDS: TYLENOL PO SCH ×4 (05:02→23:24)
[2019-06-28] MEDS: XARELTO PO SCH (05:03)
[2019-06-28] MEDS: KEFZOL 1 GM/D5W 1 GM/50 ML IVPB IV SCH ×2 (05:47→15:19)
[2019-06-28] MEDS: SYNTHROID PO SCH (06:34)
[2019-06-28] MEDS: PRILOSEC PO SCH (06:34)
[2019-06-28 06:42] LABS: HEMATOCRIT 29.4 % (42.0-52.0); HEMOGLOBIN 9.2 g/dL (14.0-18.0); IMM GRAN# 0.03 X1000 (0.0-0.04); IMM GRAN% 0.2 % (0.0-0.5); LYMPH# 0.35 X1000 (1.2-3.4); LYMPH% 2.7 % (20.5-51.1); MCH 25.4 PG (27-31); MCHC 31.3 g/dL (33-37); MCV 81.2 FL (81-99); MONO# 0.74 X1000 (0.11-0.59); MONO% 5.7 % (1.7-9.3); MPV 9.7 FL (7.4-10.4); NEUT# 11.85 X1000 (1.4-6.5); NEUT% 91.4 % (42.2-75.2); PLT 339 X1000 (130-400); RBC 3.62 XMIL (4.7-6.1); RDW 16.6 % (11.5-14.5); WBC 12.97 X1000 (4.8-10.8)
[2019-06-28 06:47] LABS: CALCIUM 8.6 mg/dL (8.8-10.2); CREATININE 1.9 mg/dL (0.7-1.2); MAGNESIUM 1.9 mg/dL (1.5-2.7); POTASSIUM 3.7 mmol/L (3.5-5.1)
[2019-06-28 07:23] LABS: LYMPHS 2 % (21-51); MONO 6 % (1-9); SEGS 92 % (42-75)
[2019-06-28] MEDS: MAXIPIME 1 GM in NS 50 ML IV SCH ×2 (08:18→20:50)
[2019-06-28] MEDS: ZYVOX 600 MG/D5W 600 MG/300 ML IVPB IV SCH ×2 (08:18→20:50)
[2019-06-28] MEDS: ZOLOFT PO SCH (08:19)
[2019-06-28] MEDS: NORVASC PO SCH ×2 (08:20→08:34)
[2019-06-28] MEDS: FERROUS SULFATE PO SCH (08:20)
[2019-06-28] MEDS: COZAAR PO SCH ×2 (08:20→08:34)
[2019-06-28] MEDS: LANOXIN PO SCH (08:20)
[2019-06-28] MEDS: MORPHINE IV PRN (08:29)
[2019-06-28] MEDS ORDERED: NON-FORMULARY MED (Omeprazole 40 MG) PO SCH (09:00)
[2019-06-28] MEDS: SOLU-MEDROL IV SCH ×2 (11:22→20:49)
[2019-06-28] MEDS: LYRICA PO SCH ×2 (11:23→20:49)
[2019-06-28] MEDS: NS 1,000 ML IV SCH (11:23)
--- NOTE | 2019-06-28 13:01 | ORTHOPAEDICS PROGRESS NOTE ---
DATE: 06/28/2019 Mr. Clarke is seen status post hemiarthroplasty of the hip. Currently appears to be motor and sensory intact. There is no active bleeding or signs of postop complications. Vital signs are relatively stable. His drain can be discontinued and dressing change today and he can be mobilized full weightbearing as tolerated on the hip. We will check him again tomorrow just for follow-up care. cc: Chris Hanks MD
--- NOTE | 2019-06-28 13:11 | Diag Imaging Result Doc PS360 ---
CHEST-1 VIEW - 06/28/2019 INDICATION: resp distress COMPARISON: 06/24/2019 FINDINGS: Stable small to moderate right pleural effusion bilaterally. There has been slight improvement in the hazy interstitial infiltrates/edema in the lung bases bilaterally. No new consolidations. Stable cardiomegaly. IMPRESSION: Overall improvement from prior. Electronically signed by Jaspreet Madrid 06/28/2019 1:09 PM
--- NOTE | 2019-06-28 15:21 | PROGRESS NOTE ---
DATE: 06/28/2019 OBJECTIVE: Blood pressure is 109/57, heart rate 80, respiratory rate of 18, temperature 98.3 degrees and 96% on 4 L.Cardiovascular: Regular rate and rhythm. Pulmonary: Bilateral breath sounds. Clear to auscultation. GI: Soft, nontender, and nondistended. Bowel sounds are positive. LABORATORY: White count up to 12, hemoglobin and hematocrit 9 and 29, and platelets 339,000. BUN and creatinine are 43 and 1.9. PROBLEM LIST: 1. Left hip fracture. He is status post ORIF per Dr. Hanks. He had general anesthesia, but he has done okay since that time. We will continue treatment and follow. 2. History of CHF and CAD. We will continue to follow. I am probably going to hold further diuretics because his renal insufficiency is increasing, and his BUN is increasing. 3. Pneumonia with associated acute respiratory failure. He is on cefepime and Zyvox, day 4. 4. Chronic obstructive pulmonary disease exacerbation. He is on breathing treatments and steroids which we will slowly back off on. DISPOSITION: Anticipate rehab when stabilized. cc: Gamaliel Mcdonnell MD
[2019-06-28] MEDS: LASIX IV SCH (16:56)
[2019-06-28] MEDS: COLACE PO SCH (20:50)
[2019-06-29] MEDS: DUONEB (A & A) INH SCH ×6 (03:15→23:39)
[2019-06-29] MEDS: PRILOSEC PO SCH ×2 (05:54→06:16)
[2019-06-29] MEDS: XARELTO PO SCH (05:54)
[2019-06-29] MEDS: LASIX IV SCH ×2 (05:54→20:33)
[2019-06-29] MEDS: SYNTHROID PO SCH ×2 (05:55→06:16)
[2019-06-29] MEDS: TYLENOL PO SCH ×4 (05:55→22:24)
[2019-06-29 07:10] LABS: HEMATOCRIT 28.1 % (42.0-52.0); HEMOGLOBIN 8.7 g/dL (14.0-18.0); LYMPH# 0.35 X1000 (1.2-3.4); LYMPH% 3.8 % (20.5-51.1); MCH 25.4 PG (27-31); MCV 82.2 FL (81-99); MONO# 0.56 X1000 (0.11-0.59); MONO% 6.1 % (1.7-9.3); MPV 9.6 FL (7.4-10.4); NEUT# 8.33 X1000 (1.4-6.5); NEUT% 90.1 % (42.2-75.2); PLT 295 X1000 (130-400); RBC 3.42 XMIL (4.7-6.1); RDW 16.5 % (11.5-14.5); WBC 9.24 X1000 (4.8-10.8)
[2019-06-29 07:34] LABS: CALCIUM 9.1 mg/dL (8.8-10.2); CREATININE 1.6 mg/dL (0.7-1.2); POTASSIUM 3.5 mmol/L (3.5-5.1)
[2019-06-29] MEDS: ZOLOFT PO SCH (09:03)
[2019-06-29] MEDS: FERROUS SULFATE PO SCH (09:03)
[2019-06-29] MEDS: LANOXIN PO SCH (09:03)
[2019-06-29] MEDS: SOLU-MEDROL IV SCH ×2 (09:03→20:32)
[2019-06-29] MEDS: COZAAR PO SCH (09:03)
[2019-06-29] MEDS: LYRICA PO SCH ×2 (09:03→20:32)
[2019-06-29] MEDS: MAXIPIME 1 GM in NS 50 ML IV SCH ×2 (09:03→20:33)
[2019-06-29] MEDS: NORVASC PO SCH (09:04)
[2019-06-29] MEDS: ZYVOX 600 MG/D5W 600 MG/300 ML IVPB IV SCH ×2 (09:29→20:33)
--- NOTE | 2019-06-29 13:35 | PROVIDER PROGRESS NOTE ---
Progress Note Pulmonary: full dictation to follow. EMR reviewed, CT and CXR seen. Labs seen Examined. CHF. COPD. Pulmonary fibrosis. Hip fracture. tolerating nasal cannula. Will add high flow cannula. Discussed with patient (Hard hearing) Discussed with Dr. Mcdonnell Evaluation time 31 minutes.
--- NOTE | 2019-06-29 14:57 | PROVIDER PROGRESS NOTE ---
Progress Note Patient has been seen and examined. A full dictation to follow.
--- NOTE | 2019-06-29 14:59 | PROGRESS NOTE ---
DATE: 06/29/2019 SUBJECTIVE: The patient looks a lot better today. He is not working as much to breathe. He does not seem as agitated. He is sitting up in bed. He just had hip surgery yesterday and he is not complaining of any pain. OBJECTIVE: Blood pressure 88/51, heart rate of 86, respiratory rate of 17, temperature 97.8 degrees, 96% on 5 L. Cardiovascular: Regular rate and rhythm. Pulmonary: Bilateral breath sounds clear to auscultation. GI: Soft, nontender, nondistended. Bowel sounds were positive. Extremity Examination: No clubbing or cyanosis. Laboratory Data: White count is 9, hemoglobin and hematocrit 8 and 28, platelets 295,000. Sodium is down to 131 with a creatinine of 1.6. PROBLEM LIST: 1. Left hip fracture, status post open reduction and internal fixation. He is doing well. Dr. Hanks will continue to follow. 2. Mild congestive heart failure exacerbation. We will continue diuresis as much as his blood pressure can allow. I may tweak his Lasix down a little bit, just because he is on the hypotensive side. 3. Pulmonary fibrosis, chronic obstructive pulmonary disease. We will continue breathing treatments. He still has a fairly high oxygen requirement despite improving x-ray so I have asked pulmonary to come and evaluate him. 4. Disposition, pending clinical status. We will continue to follow. Will likely need rehabilitation or long-term care, which we will continue to look at. 5. Hypertension. I resumed his blood pressure medications but I am not sure how well he can tolerate them, so I am going to hold his Norvasc and his losartan. We will follow. cc: Gamaliel Mcdonnell MD
--- NOTE | 2019-06-29 18:35 | ORTHOPAEDICS PROGRESS NOTE ---
DATE: 06/29/2019 SUBJECTIVE: Mr. Clarke is status post day #2 of a left hip hemiarthroplasty. This was due to a displaced left femoral neck fracture. OBJECTIVE: Mr. Clarke it is sitting up in a chair at his bedside at this time. He denies any complaints at this time. He is getting a breathing treatment at present. He is able to dorsiflex and plantar flex his left foot without any difficulty. His incision to his left hip is clean and dry. The dressing is intact as well with no drainage noted. He has full sensation distally to his incision. ASSESSMENT: Postoperative day 2 of a left hip hemiarthroplasty due to left femoral neck fracture. PLAN: Mr. Clarke is doing very well from his left hip arthroplasty standpoint. I believe he will be discharged home to rehab. He can follow up with Dr. Hanks in approximately 2 to 3 weeks from today as rehab allows. He is to be full weightbearing on the left lower extremity. We are available as needed while he remains in the hospital. Dictated by EJY Thomas for Chris Hanks MD cc: Chris Hanks MD [facility]
[2019-06-29] MEDS: COLACE PO SCH (21:46)
--- NOTE | 2019-06-29 23:02 | CONSULTATION ---
DATE OF CONSULTATION: 06/29/2019 REQUESTING PROVIDER: Gamaliel Mcdonnell MD REASON FOR CONSULTATION: Respiratory failure. HISTORY OF PRESENT ILLNESS: This is an 84-year-old male with a medical history of COPD, chronic hypoxic respiratory failure, congestive heart failure, chronic atrial fibrillation, hypertension, hypothyroidism, prostate cancer, and stroke. He has been admitted since 06/24/2019 with left mildly displaced femur fracture secondary to a recent fall, hypotension, bilateral lower lobe infiltrates versus pneumonia, loculated pleural effusions, COPD exacerbation, and troponin elevation. He underwent left amos-arthroplasty of the hip anteriorly on 06/27/[address] Hanks. During his hospital stay, he initially required a nasal cannula at 3 to 4 L; however since yesterday, he required oxygen up to 5 L with oxygen saturation staying in the lower 90s. CT thorax without contrast on 06/25/2019 did show stable dominant pleural thickening at the lateral right lung base with stable advanced COPD and stable pulmonary fibrosis in the lung bases, but Chest x-ray on 06/28/2019 already showed overall improvement. The patient currently is sitting on the bedside chair laying his head on the bedside table with eyes open. He is staring outside of the window. He has severe difficulty hearing. So, the review of systems is very limited at this time. He does have audible rattle noise with inspiration. He denies any pain at this time. He reports he uses oxygen at home. He used to smoke heavily up to 2 or 3 packs per day and quit 20 years ago. He denies constipation or diarrhea. He does have generalized weakness. PAST MEDICAL AND SURGICAL HISTORY: 1. Chronic obstructive pulmonary disease with chronic hypoxic respiratory failure on continuous oxygen at home for many years. 2. Congestive heart failure. 3. Chronic atrial fibrillation on chronic anticoagulation. 4. Hypertension. 5. Hypothyroidism. 6. Prostatic cancer status post TURP. 7. History of stroke. SOCIAL HISTORY: The patient lives at home with his family. He used to smoke up to 2 or 3 packs per day for many years and quit 20 years ago. He has no history of alcohol or illicit drug use. FAMILY HISTORY: Unknown. ALLERGIES: No known drug allergies. REVIEW OF SYSTEMS: Limited as shown in HPI. PHYSICAL EXAMINATION: Vital Signs: Temperature 97.8 degrees, blood pressure is 88/51, pulse 86, respiratory rate 17, oxygen saturation 96% on nasal cannula at 5. General: Elderly male, sitting on the bedside chair with head laying on the bedside table. No acute distress noted. HEENT: Atraumatic, normocephalic. Trachea midline. Mucosa pink, moist. Respiratory: Even and unlabored. Audible fine rattle noise with inspiration. Symmetrical excursion. Diminished breathing sounds bilaterally. Cardiovascular: Irregularly irregular. S1 and S2 noted with systolic murmur. Gastrointestinal: Soft, nontender, nondistended. Normoactive bowel sounds in all 4 quadrants. Extremities: No pedal edema. No cyanosis. No clubbing. Dorsalis pedis diminished bilaterally. Neurologic: Alert and oriented. Significant difficulty hearing. Able to answer some simple questions at times. Able to follow simple commands at times. Weakness present. LAB DATA: White blood cell 9.24, hemoglobin 8.7, hematocrit 28.1, platelet 295,000. Sodium 131, potassium 93.5, chloride 92, carbon dioxide 28, BUN 41, creatinine 1.6, glucose 141. ASSESSMENT: This is an 84-year-old male with a medical history of chronic obstructive pulmonary disease, chronic hypoxic respiratory failure, congestive heart failure, chronic atrial fibrillation, hypertension, hypothyroidism, prostatic cancer and stroke. He has been admitted since 06/24/2019 with left mildly displaced femur fracture secondary to a recent fall, hypotension, bilateral lower lobe infiltrates versus pneumonia, loculated pleural effusion, hyponatremia, troponin elevation, chronic obstructive pulmonary disease exacerbation. 1. Left mildly displaced femur fracture status post left amos-arthroplasty of the hip anterior on 06/27/[address] Hanks. 2. Advanced chronic obstructive pulmonary disease with chronic hypoxic respiratory failure. 3. Acute on chronic hypoxic respiratory failure. The patient stayed on nasal cannula at 5 L since yesterday. 4. Pulmonary fibrosis on the bilateral lower lobes. 5. Chronic congestive heart failure. 6. Hypertension. PLAN: 1. Continue supplemental oxygen and consider a high-flow nasal cannula if needed. 2. Continue antibiotics, Solu-Medrol and breathing treatments. Will taper the Solu-Medrol down. 3. Follow up with CBC, BMP. 4. Be cautious with diuresis. Currently, Lasix has been cut down from 40 mg twice a day to once a day. 5. Continue gastrointestinal and deep vein thrombosis prophylaxis. 6. Further recommendations pending hospital course. Thank you for the courtesy of this consult. Dictated by JEY Crawford for Emilia Garcia MD cc: JEY Crawford MD [facility]
[2019-06-30] MEDS: DUONEB (A & A) INH SCH ×5 (03:25→19:41)
[2019-06-30] MEDS: TYLENOL PO SCH ×3 (06:00→22:24)
[2019-06-30] MEDS: XARELTO PO SCH (06:00)
[2019-06-30] MEDS: SYNTHROID PO SCH (06:00)
[2019-06-30] MEDS: PRILOSEC PO SCH (06:00)
[2019-06-30 06:53] LABS: HEMATOCRIT 27.2 % (42.0-52.0); HEMOGLOBIN 8.5 g/dL (14.0-18.0); IMM GRAN# 0.03 X1000 (0.0-0.04); IMM GRAN% 0.2 % (0.0-0.5); LYMPH# 0.48 X1000 (1.2-3.4); LYMPH% 3.3 % (20.5-51.1); MCH 25.6 PG (27-31); MCHC 31.3 g/dL (33-37); MCV 81.9 FL (81-99); MONO# 1.04 X1000 (0.11-0.59); MONO% 7.2 % (1.7-9.3); MPV 9.3 FL (7.4-10.4); NEUT# 12.93 X1000 (1.4-6.5); NEUT% 89.3 % (42.2-75.2); PLT 360 X1000 (130-400); RBC 3.32 XMIL (4.7-6.1); RDW 16.5 % (11.5-14.5); WBC 14.48 X1000 (4.8-10.8)
[2019-06-30 07:25] LABS: POTASSIUM 3.7 mmol/L (3.5-5.1)
[2019-06-30 07:39] LABS: BANDS 4 % (0-1); LYMPHS 8 % (21-51); MONO 2 % (1-9); SEGS 86 % (42-75)
[2019-06-30 07:40] LABS: HYPOCHROM 1+; POIKILOCYTOSIS 1+
[2019-06-30] MEDS: LASIX IV SCH (08:43)
[2019-06-30] MEDS: FERROUS SULFATE PO SCH (08:43)
[2019-06-30] MEDS: LANOXIN PO SCH (08:43)
[2019-06-30] MEDS: MAXIPIME 1 GM in NS 50 ML IV SCH ×2 (08:43→22:23)
[2019-06-30] MEDS: SOLU-MEDROL IV SCH ×2 (08:43→22:24)
[2019-06-30] MEDS: LYRICA PO SCH ×2 (08:43→22:23)
[2019-06-30] MEDS: ZOLOFT PO SCH (08:43)
[2019-06-30] MEDS: ZYVOX 600 MG/D5W 600 MG/300 ML IVPB IV SCH ×2 (08:48→22:23)
[2019-06-30] MEDS ORDERED: LASIX IV SCH (09:00)
--- NOTE | 2019-06-30 09:29 | Diag Imaging Result Doc PS360 ---
EXAM: CHEST-2 VIEWS HISTORY: sob TECHNIQUE: Two views COMPARISON: 06/28/2019 FINDINGS: The lungs are hyperexpanded. There is a small to moderate-sized right-sided pleural effusion similar to the prior exam. The right basilar infiltrates and atelectasis. These are also unchanged. Mild cardiomegaly. Tortuous aorta with atherosclerosis. Interval clearing of the infiltrates in the left lung base. IMPRESSION: Mild interval improvement Electronically signed by Tone Zavala 06/30/2019 9:27 AM
--- NOTE | 2019-06-30 18:19 | PROGRESS NOTE ---
DATE: 06/30/2019 SUBJECTIVE: The patient has no complaints. He looks well, breathing so okay. Blood pressures have been on the low side. OBJECTIVE: Vital Signs: Blood pressure is 88/51, heart rate was 68, respiratory rate 19, temperature 97.4 degrees. Cardiovascular: Regular rate and rhythm. Pulmonary: Bilateral breath sounds, clear to auscultation. Gastrointestinal: Soft, nontender, nondistended. Bowel sounds are positive. LABORATORY DATA: White count is 14, hemoglobin and hematocrit are 8 and 27, platelets of 360,000. BUN and creatinine are up to 54 and 2 with a sodium of 132. PROBLEM LIST: 1. Acute on chronic respiratory failure. He is stable, currently on O2. He has a history of chronic obstructive pulmonary disease, pulmonary fibrosis, seems to be doing okay. I am going to back down on the Lasix because his blood pressure is on the marginal side and we will continue to monitor. Pulmonary is also following. I think I am going to decrease his steroids a little bit. 2. Left hip fracture. He seems to be stable postoperatively. 3. Transient hypotension. May be related to his heart failure. We will continue to monitor. I am going to stop anything that may be inducing hypotension including pain medication. He has not been requesting any pain medication and we will continue to monitor. DISPOSITION: He will likely need rehab when he is stabilized. Probably not looking at any earlier than Wednesday, but it looks like Wednesday he will be stable to go there. cc: Gamaliel Mcdonnell MD
[2019-06-30] MEDS: COLACE PO SCH (22:23)
--- NOTE | 2019-07-01 00:08 | PULMONOLOGY PROGRESS NOTE ---
DATE: 06/30/2019 SUBJECTIVE: Mr. Clarke is awake and alert. He states that he feels better. He is not working as hard to breathe. OBJECTIVE: Vital Signs: Blood pressure is 88/51 with a heart rate of 67, respirations are 24, temperature is 97.4 degrees with O2 saturations that are 100% on a Venturi mask. Cardiovascular: Irregularly irregular rate and rhythm. S1 and S2 are appreciated. Pulmonary: Breath sounds are coarse throughout. Chest rises and falls symmetric with respiration. Gastrointestinal: Abdomen is soft, nontender, nondistended with bowel sounds in all 4 quadrants. Neurologic: He is alert and oriented. LABORATORIES: WBC is 14.4 with hemoglobin 8.5, hematocrit 27.2, platelets of 360,000. Sodium 132, potassium 3.7, BUN 54, creatinine 2 with a glucose of 114. Chest x-ray revealed mild interval improvement. There is a small to moderate sized right pleural effusion similar to prior exam. Right basilar infiltrates and atelectasis are unchanged. Interval clearing of the infiltrates in the left lung base. IMPRESSION: 1. Advanced chronic obstructive pulmonary disease with chronic hypoxic respiratory failure. 2. Acute on chronic hypoxic respiratory failure. 3. Pulmonary fibrosis bilateral lower lobes. 4. Chronic congestive heart failure. 5. Hypertension. 6. Status post left hemiarthroplasty of hip 06/27/2019. PLAN: We will continue with supplemental oxygen Continue Zyvox and cefepime, with steroids to taper and bronchodilators. Continue current treatment per medical staff. Plan was discussed with Dr. Bowers. Dictated by JEY Vargas for Edgar Bowers MD cc: JEY Vargas MD [facility]
[2019-07-01] MEDS: DUONEB (A & A) INH SCH ×7 (00:11→22:43)
[2019-07-01] MEDS: TYLENOL PO SCH ×3 (05:48→21:11)
[2019-07-01] MEDS: PRILOSEC PO SCH ×2 (05:49→07:16)
[2019-07-01] MEDS: SYNTHROID PO SCH ×2 (05:49→07:16)
[2019-07-01] MEDS: XARELTO PO SCH (05:49)
[2019-07-01] MEDS: ZYVOX 600 MG/D5W 600 MG/300 ML IVPB IV SCH ×2 (08:55→21:10)
[2019-07-01] MEDS: MAXIPIME 1 GM in NS 50 ML IV SCH ×3 (08:55→21:10)
[2019-07-01] MEDS: SOLU-MEDROL IV SCH ×2 (08:55→21:11)
[2019-07-01] MEDS: LYRICA PO SCH ×2 (08:56→21:11)
[2019-07-01] MEDS: LASIX IV SCH (08:56)
[2019-07-01] MEDS: ZOLOFT PO SCH (08:56)
[2019-07-01] MEDS: FERROUS SULFATE PO SCH (08:56)
[2019-07-01] MEDS: LANOXIN PO SCH (08:56)
--- NOTE | 2019-07-01 15:24 | PROGRESS NOTE ---
DATE: 07/01/2019 SUBJECTIVE: The patient has no major complaints. OBJECTIVE: Blood pressure 89/50, heart rate 72, respiratory rate 22, temperature 98 degrees, 97% on think he is on 40%.Cardiovascular: Regular rate and rhythm. Pulmonary: Bilateral breath sounds clear to auscultation. GI: Soft, nontender, nondistended. Bowel sounds are positive. LABS: White count 14, hemoglobin and hematocrit 8 and 27, platelets 360,000. BUN and creatinine are 54 and 2. PROBLEM LIST: 1. Acute on chronic respiratory failure due to chronic obstructive pulmonary disease, pulmonary fibrosis. He is still on 5 L and seems to be stable. Will continue to monitor. 2. Pulmonary edema related to congestive heart failure. We will continue to monitor. We have decreased his Lasix because of hypotension. I am going to leave him on his course right now. 3. Pneumonia. We will continue treatment. He is on cefepime which he has been on for a week now and Zyvox. May consider going down on those but we will see how he goes. 4. Disposition. Awaiting rehab. We will continue to monitor closely. cc: Gamaliel Mcdonnell MD
--- NOTE | 2019-07-01 19:12 | PULMONOLOGY PROGRESS NOTE ---
DATE: 07/01/2019 SUBJECTIVE: The patient is awake and alert. He states that he is feeling better. His breathing is better today. OBJECTIVE: Vital signs: Blood pressure is 99/55 with a heart rate of 84, respirations are 20, temperature is 98.9 degrees axillary with room air saturations 94% to 97% on 40% venturi face mask. Cardiovascular: Irregularly irregular rate and rhythm. S1 and S2 are appreciated. No murmurs, no rubs. Pulmonary: Breath sounds are coarse. Chest rises and falls symmetric with respiration. Chest wall is nontender to palpation. Gastrointestinal: Abdomen is soft, nontender, nondistended. Bowel sounds in all 4 quadrants. Neurologic he is alert and oriented. Extremities: No clubbing, cyanosis or edema. IMPRESSION: 1. Advanced chronic obstructive pulmonary disease with chronic hypoxic respiratory failure. 2. Gfyip-wi-cztenty hypoxic respiratory failure. 3. Pulmonary fibrosis, bilateral lungs. 4. Chronic congestive heart failure. 5. Hypertension. 6. Status post left hemiarthroplasty of the hip 06/27/2019. 7. Chronic atrial fibrillation, on chronic anticoagulation. PLAN: continue supplemental oxygen as needed, steroids and bronchodilators. Continue antibiotics of Zyvox, cefepime, Plan was discussed with Dr. Bowers. Dictated by JEY Vargas for Edgar Bowers MD cc: JEY Vargas MD [facility]
[2019-07-01] MEDS: COLACE PO SCH (21:11)
[2019-07-02] MEDS: DUONEB (A & A) INH SCH ×6 (03:20→22:52)
[2019-07-02] MEDS: SYNTHROID PO SCH (06:10)
[2019-07-02] MEDS: XARELTO PO SCH (06:10)
[2019-07-02] MEDS: TYLENOL PO SCH ×3 (06:10→21:14)
[2019-07-02] MEDS: PRILOSEC PO SCH (06:11)
[2019-07-02 07:30] LABS: BASO# 0.01 X1000 (0.0-0.2); IMM GRAN# 0.08 X1000 (0.0-0.04); IMM GRAN% 0.4 % (0.0-0.5); LYMPH% 1.8 % (20.5-51.1); MCH 25.4 PG (27-31); MCV 81.7 FL (81-99); MONO# 0.95 X1000 (0.11-0.59); MONO% 4.3 % (1.7-9.3); MPV 9.5 FL (7.4-10.4); NEUT# 20.67 X1000 (1.4-6.5); NEUT% 93.5 % (42.2-75.2); PLT 339 X1000 (130-400); RBC 3.55 XMIL (4.7-6.1); RDW 16.5 % (11.5-14.5); WBC 22.11 X1000 (4.8-10.8)
[2019-07-02 07:55] LABS: CALCIUM 9.3 mg/dL (8.8-10.2); CREATININE 1.4 mg/dL (0.7-1.2); POTASSIUM 4.3 mmol/L (3.5-5.1)
[2019-07-02] MEDS: LANOXIN PO SCH (08:23)
[2019-07-02] MEDS: LYRICA PO SCH ×2 (08:23→21:14)
[2019-07-02] MEDS: FERROUS SULFATE PO SCH (08:23)
[2019-07-02] MEDS: ZOLOFT PO SCH (08:23)
[2019-07-02] MEDS: LASIX IV SCH (08:24)
[2019-07-02] MEDS: SOLU-MEDROL IV SCH (08:24)
[2019-07-02] MEDS: MAXIPIME 1 GM in NS 50 ML IV SCH ×3 (08:30→21:14)
[2019-07-02] MEDS: ZYVOX 600 MG/D5W 600 MG/300 ML IVPB IV SCH ×2 (08:32→21:13)
[2019-07-02 09:38] LABS: BANDS 2 % (0-1); MONO 6 % (1-9); SEGS 90 % (42-75)
[2019-07-02 09:39] LABS: ANISOCYTOSIS 1+; HYPOCHROM 1+
--- NOTE | 2019-07-02 16:58 | PROGRESS NOTE ---
DATE: 07/02/2019 SUBJECTIVE: Patient has no major complaints. OBJECTIVE: Blood pressure 107/57, heart rate of 81, respiratory rate 23, temperature 99.1 degrees, and 98% on 5 L.Cardiovascular: Regular rate and rhythm. Pulmonary: Bilateral breath sounds. Clear to auscultation. GI: Abdomen was soft. Nontender. Nondistended. Bowel sounds are positive. LABORATORY DATA: White count up to 22,000, hemoglobin and hematocrit 9 and 29, platelets 339,000 and creatinine is 1.4. PROBLEM LIST: 1. Acute on chronic respiratory failure. He seems to be doing okay. He is 100% saturation on 5 L. I am not quite sure why they are not weaning him. I do not know if that is his baseline oxygen requirement, but I think he probably needs to be weaned a bit so we will see how he does. 2. Pulmonary edema. We will continue diuretics and follow closely. 3. Pneumonia but with rising white count. I am not entirely sure if it is related to pneumonia or steroids. He is really on very low-dose steroids so we will repeat his chest x-ray, and see how things look. DISPOSITION: He will likely need rehab. We will continue to follow. I appreciate applications consultant's help. cc: Gamaliel Mcdonnell MD
--- NOTE | 2019-07-02 17:43 | PULMONOLOGY PROGRESS NOTE ---
DATE: 07/02/2019 SUBJECTIVE: Mr. Clarke has no complaints today. He states that he feels like he is breathing better. OBJECTIVE: Vital Signs: Blood pressure is 118/63 with a heart rate of 78, respirations are 22, temperature is 98.4 degrees, O2 saturations are 98-99% 5 L nasal cannula. Cardiovascular: Irregularly irregular rate and rhythm. S1 and S2 are appreciated. No murmurs. Pulmonary: Breath sounds scattered rhonchi bilateral. Chest rises and falls symmetric with respiration. Chest wall is nontender to palpation. Gastrointestinal: Abdomen soft, nontender, nondistended with bowel sounds in all 4 quadrants. Neurologic: He is alert and oriented. Skin: Is warm and dry. Extremities: No clubbing, cyanosis, or edema. LABS: WBC is 22 with hemoglobin 9, hematocrit 29 and platelets of 339,000. Sodium 131, potassium 4.3, BUN 58, creatinine 1.4 with a glucose of 124. ASSESSMENT AND PLAN: 1. Advanced chronic obstructive pulmonary disease with chronic hypoxic respiratory failure. 2. Acute on chronic hypoxic respiratory failure. 3. Pulmonary fibrosis bilateral lungs. 4. Chronic congestive heart failure. 5. Hypertension. 6. Status post left hemiarthroplasty of the hip 06/27/2019. 7. Chronic atrial fibrillation on chronic anticoagulation. continue supplemental oxygen and incentive spirometer. Continue bronchodilators with steroids, continue antibiotics Zyvox and Maxipime. Plan was discussed with Dr. Bowers. Disposition. We are waiting rehab. Dictated by JEY Vargas for Edgar Bowers MD cc: JEY Vargas MD [facility]
[2019-07-02] MEDS: COLACE PO SCH (21:14)
[2019-07-03] MEDS: DUONEB (A & A) INH SCH ×6 (03:21→23:50)
[2019-07-03] MEDS: PRILOSEC PO SCH (06:03)
[2019-07-03] MEDS: XARELTO PO SCH (06:03)
[2019-07-03] MEDS: SYNTHROID PO SCH (06:03)
[2019-07-03] MEDS: TYLENOL PO SCH ×2 (06:04→14:19)
--- NOTE | 2019-07-03 06:30 | Diag Imaging Result Doc PS360 ---
CHEST-PORTABLE - 07/03/2019 INDICATION: dyspnea COMPARISON: 06/30/2019 FINDINGS: There has been decrease in the size of the small right basilar pleural effusion. Stable dense infiltrate at the right lung base. There is some slight worsening hazy infiltrate in the left lung base. Heart size remains somewhat enlarged. IMPRESSION: Mixed changes from prior, overall little change. Electronically signed by Jaspreet Madrid 07/03/2019 6:28 AM
[2019-07-03 07:19] LABS: CALCIUM 9.5 mg/dL (8.8-10.2); CREATININE 1.4 mg/dL (0.7-1.2); POTASSIUM 4.7 mmol/L (3.5-5.1)
[2019-07-03 07:30] LABS: BASO# 0.01 X1000 (0.0-0.2); EOS# 0.05 X1000 (0.0-0.7); EOS% 0.2 % (0.0-10.0); HEMATOCRIT 28.1 % (42.0-52.0); HEMOGLOBIN 8.8 g/dL (14.0-18.0); IMM GRAN% 0.5 % (0.0-0.5); LYMPH# 0.64 X1000 (1.2-3.4); LYMPH% 3.2 % (20.5-51.1); MCH 25.5 PG (27-31); MCHC 31.3 g/dL (33-37); MCV 81.4 FL (81-99); MONO# 1.78 X1000 (0.11-0.59); MONO% 8.8 % (1.7-9.3); MPV 9.9 FL (7.4-10.4); NEUT# 17.61 X1000 (1.4-6.5); NEUT% 87.3 % (42.2-75.2); PLT 337 X1000 (130-400); RBC 3.45 XMIL (4.7-6.1); RDW 16.6 % (11.5-14.5); WBC 20.19 X1000 (4.8-10.8)
[2019-07-03] MEDS: MUCOMYST 20% INH SCH ×2 (08:00→20:08)
[2019-07-03] MEDS ORDERED: SOLU-MEDROL IV SCH (09:00)
--- NOTE | 2019-07-03 09:14 | PROVIDER PROGRESS NOTE ---
Progress Note Dr. Garcia Progress Note/Pulmonary and or critical care We appreciated progress of care, Complications, change in diagnosis, and instructions to patient under direct supervision of Dr. Garcia. Subjective: We note the level of consciousness, bed (chair) position, family presence (if any), level of lethargy, feeling of symptoms, and changes from baseline condition/symptom. The patient is resting in bed with NC 5L. His SaO2 stays in low 90s. He has SOB with talking and coughing with audible expiratory rattle noise. He has poor cough effort. He reports no pain at this time. Objective: Vital Signs: We reviewed EMR current values for Pulse rate, Blood pressure, Pulse rate, respiratory rate and Pulse oximetry. Also noted other values and trends if present (e.g. I/O, CVP). Vital Signs 07/02/19 14:17 07/02/19 15:45 07/02/19 19:37 Temperature 99.1 F Pulse Rate 78 81 87 Respiratory Rate 24 23 32 H Blood Pressure 118/63 107/57 O2 Sat by Pulse Oximetry 99 98 90 L 07/02/19 20:00 07/03/19 00:00 07/03/19 03:14 Temperature 99.2 F 98.9 F 99.2 F Pulse Rate 94 H 85 78 Respiratory Rate 30 H 26 H 26 H Blood Pressure 112/65 115/52 103/53 O2 Sat by Pulse Oximetry 96 93 L 97 07/03/19 08:00 07/03/19 08:01 07/03/19 09:36 Temperature 98.7 F Pulse Rate 75 74 83 Respiratory Rate 21 22 Blood Pressure 121/68 O2 Sat by Pulse Oximetry 95 95 07/03/19 11:19 Temperature 98.5 F Pulse Rate 79 Respiratory Rate 16 Blood Pressure 123/54 O2 Sat by Pulse Oximetry 93 L Intake & Output 07/02/19 07/03/19 07/03/19 19:59 07:59 19:59 Intake Total 1560 / 1860 300 / 1860 Output Total 800 / 800 Balance 1560 / 1060 -500 / 1060 Intake: Intake, IVPB 400 / 400 Intake, Oral Amount 1160 / 1460 300 / 1460 Output: Output, Urine Void Amount 300 / 300 Output, Urine Thornton Amount 500 / 500 Other: Percent of Meal Consumed 50% 25% Number of Bowel Movements 1 1 Bowel Movement Color and Soft Character Brown Physical Examination: General: Lying in bed with no acute distress noted initially, but develops SOB and mildly tachypneic as talking and coughing. HEENT: Atraumatic. Normocephalic. Trachea midline. Mucosa pink and moist. Chest: Even and unlabored. Audible rattle noise with expiration. Symmetrical excursion. Diminished breathing sounds bilaterally, prolong expiratory phase, rhonchi and expiratory wheezing bilaterally. CVS: Irregularly irregular. S1 S2 noted with systolic murmur. Abdomen: Soft. Non-distended. Non-tender. Normoactive bowel sounds in all 4 quadrants. Extremities: No pedal edema. No cyanosis. No clubbing. Dorsalis pedis diminished b/l. Neuro: A/O. Significant difficulty hearing. Speech fluent. Follow commands. Labs and Radiology: Reviewed available labs and radiology values available at time of EMR review. Laboratory Results 07/03/19 07/03/19 05:58 05:58 WBC 20.19 H RBC 3.45 L Hgb 8.8 L Hct 28.1 L MCV 81.4 MCH 25.5 L MCHC 31.3 L RDW Std Deviation 16.6 H Plt Count 337 MPV 9.9 Immature Gran % (Auto) 0.5 Neut % (Auto) 87.3 H Lymph % (Auto) 3.2 L Payne % (Auto) 8.8 Eos % (Auto) 0.2 Baso % (Auto) 0.0 Immature Gran # (Auto) 0.10 H Neut # (Auto) 17.61 H Lymph # (Auto) 0.64 L Payne # (Auto) 1.78 H Eos # (Auto) 0.05 Baso # (Auto) 0.01 Segmented Neutrophils 90 H Band Neutrophils 2 H Lymphocytes 2 L Monocytes 6 Hypochromia 1+ Large Platelets 1+ Sodium 130 L Potassium 4.7 Chloride 92 L Carbon Dioxide 26 Anion Gap 12 BUN 61 H Creatinine 1.4 H Estimated GFR/1.73 m2 48 BUN/Creatinine Ratio 44 Glucose 102 Calculated Osmolality [address] Garcia evaluated and additional note below. Evaluation time in minutes: 33 minutes. Assessment: Advanced COPD with acute exacerbation. Acute on chronic hypoxemic resp failure. Improved. Acute hypercapnic resp failure. Pulmonary fibrosis on the bilateral lower lobes. Small right basilar pleural effusion. Improving. Chronic congestive heart failure. Left mildly displaced femur fracture status post left amos-arthroplasty of the hip anterior on 06/27/[address] Hanks. Plan: Continue current treatment and supportive care per admitting and other teams on the case. Antibiotics, including cefepime and linezolid. Bronchodilators. Mucomysit. Steroid. Weaning down. Diuresis. Appropriate DVT and GI prophylaxis. Input was appreciated from Admitting MD and other teams on the case. See additional notes by Dr. Garcia.
[2019-07-03] MEDS: ZYVOX 600 MG/D5W 600 MG/300 ML IVPB IV SCH ×2 (09:34→20:32)
[2019-07-03] MEDS: MAXIPIME 1 GM in NS 50 ML IV SCH ×2 (09:35→20:23)
[2019-07-03] MEDS: ZOLOFT PO SCH (09:36)
[2019-07-03] MEDS: LASIX PO SCH (09:36)
[2019-07-03] MEDS: LANOXIN PO SCH (09:36)
[2019-07-03] MEDS: FERROUS SULFATE PO SCH (09:36)
--- NOTE | 2019-07-03 09:39 | PROVIDER PROGRESS NOTE ---
Progress Note Pulmonary additional note: I have seen and examined the case, reviewed the EMR, labs, latest images and other medical teams notes. Also reviewed the P[employer]FITTER notes and signed necessary form(s). I have noted changes in condition if any from yesterday and did orders. Please see also signed progress sheet. Today, he is tolerating NC and communicative but hard of hearing. Hemodynamically stable. Prognosis: Guarded for now. I reviewed latest notes from Dr. Mcdonnlel Will reduce O2 to 2 L NC. Respiratory failure. pulmonary fibrosis. CHF. COPD. Hypercarbia and chronic renal insufficiency. Pulmonary hypertension and PPM. Hip #. I spent 34 minutes in this process.
[2019-07-03] MEDS: LYRICA PO SCH ×2 (09:43→20:23)
[2019-07-03 10:29] LABS: BANDS 2 % (0-1); LYMPHS 2 % (21-51); MONO 6 % (1-9); SEGS 90 % (42-75)
[2019-07-03 10:30] LABS: HYPOCHROM 1+; LARGE PLATELETS 1+
[2019-07-03] MEDS ORDERED: SAMSCA PO ONE (13:33)
--- NOTE | 2019-07-03 15:32 | PROGRESS NOTE ---
DATE: 07/03/2019 SUBJECTIVE: Patient has no major complaints. He is breathing is okay. OBJECTIVE: Vital Signs: Blood pressure 123/54, heart rate 79, respiratory rate 16, temperature 98.5, 93% on 2 L but then it says 95 on 5. Cardiovascular: Regular rate and rhythm. Pulmonary: Bilateral breath sounds clear to auscultation. Gastrointestinal: Abdomen soft, nontender, nondistended. Bowel sounds are positive. LABORATORY DATA: White count 20, hemoglobin and hematocrit 8.8 and 28. Platelets 337,000. Creatinine is 1.4. PROBLEM LIST: 1. Acute on chronic respiratory failure. Seems to be doing okay. We are going to continue to wean O2. Appreciate Pulmonary import and Pulmonary opinion. 2. Pulmonary edema. We will continue diuretics and follow. 3. Pneumonia, still on antibiotics. We will try to stop his steroids and see how he does. See if it helps with his white count. We will continue to monitor. 4. Hip fracture. We will continue to monitor. He has a left femoral neck fracture which is status post open reduction and internal fixation. Seems to be doing okay. DISPOSITION: We are looking at rehab when bed available. cc: Gamaliel Mcdonnell MD
[2019-07-03] MEDS: COLACE PO SCH (20:23)
[2019-07-04] MEDS: TYLENOL PO SCH ×4 (02:03→21:51)
[2019-07-04] MEDS: DUONEB (A & A) INH SCH ×6 (04:10→23:05)
[2019-07-04] MEDS: XARELTO PO SCH (06:02)
[2019-07-04] MEDS: SYNTHROID PO SCH (06:02)
[2019-07-04] MEDS: PRILOSEC PO SCH (06:02)
[2019-07-04 06:26] LABS: CALCIUM 9.2 mg/dL (8.8-10.2); CREATININE 1.3 mg/dL (0.7-1.2); POTASSIUM 4.4 mmol/L (3.5-5.1)
[2019-07-04 06:31] LABS: EOS# 0.11 X1000 (0.0-0.7); EOS% 0.6 % (0.0-10.0); HEMATOCRIT 28.7 % (42.0-52.0); IMM GRAN# 0.05 X1000 (0.0-0.04); IMM GRAN% 0.3 % (0.0-0.5); LYMPH# 0.47 X1000 (1.2-3.4); LYMPH% 2.5 % (20.5-51.1); MCH 25.4 PG (27-31); MCHC 31.4 g/dL (33-37); MCV 81.1 FL (81-99); MPV 9.5 FL (7.4-10.4); NEUT# 16.64 X1000 (1.4-6.5); NEUT% 87.6 % (42.2-75.2); PLT 297 X1000 (130-400); RBC 3.54 XMIL (4.7-6.1); RDW 16.6 % (11.5-14.5); WBC 18.97 X1000 (4.8-10.8)
[2019-07-04 07:42] LABS: LYMPHS 2 % (21-51); MONO 4 % (1-9); SEGS 94 % (42-75)
[2019-07-04 07:43] LABS: ANISOCYTOSIS 1+; HYPOCHROM 1+; LARGE PLATELETS OCCASIONAL
[2019-07-04] MEDS: MUCOMYST 20% INH SCH ×2 (07:59→19:29)
[2019-07-04] MEDS: FERROUS SULFATE PO SCH (08:54)
[2019-07-04] MEDS: MAXIPIME 1 GM in NS 50 ML IV SCH ×2 (08:54→20:49)
[2019-07-04] MEDS: LASIX PO SCH (08:54)
[2019-07-04] MEDS: ZOLOFT PO SCH (08:54)
[2019-07-04] MEDS: LANOXIN PO SCH (08:54)
[2019-07-04] MEDS: LYRICA PO SCH ×2 (08:54→20:52)
[2019-07-04] MEDS ORDERED: LASIX IV ONE (09:18)
--- NOTE | 2019-07-04 09:23 | Diag Imaging Result Doc PS360 ---
CHEST-1 VIEW - 07/04/2019 INDICATION: low 02 sat COMPARISON: 07/11/2019 FINDINGS: Stable cardiomegaly and pulmonary vascular congestion. There has been slight improvement in the diffuse bilateral interstitial reticulonodular infiltrates. There is a stable small right basilar pleural effusion. There is a stable trace left pleural effusion. IMPRESSION: Slight improvement in the interstitial reticulonodular infiltrates bilaterally. Otherwise no change from prior. Electronically signed by Jaspreet Madrid 07/04/2019 9:21 AM
[2019-07-04] MEDS: ZYVOX 600 MG/D5W 600 MG/300 ML IVPB IV SCH ×2 (09:36→20:49)
[2019-07-04 09:44] LABS: ALLEN TEST YES; BE 6.6 mmoll (-3.0-3.0); BLOOD TYPE ARTERIAL; HCO3-(ACT) 30.1 mmoll (20.0-26.0); METHB 1.9 % (0.0-1.5); O2(CT) 10.4 mL/dL (15.0-23.0); O2HB 94.3 % (95.0-99.0); PCO2(98.6) 45 mmHg (35-45); PO2(98.6) 101 mmHg (60-100); SAMPLE BLOOD; SAO2 98.6 % (95.0-100.0); THB 7.7 g/dL (11.5-17.4); pH(98.6) 7.45 (7.35-7.45)
[2019-07-04 09:49] LABS: MODALITY VENTIMASK
--- NOTE | 2019-07-04 10:33 | PROVIDER PROGRESS NOTE ---
Progress Note Pulmonary additional note: I have seen and examined the case, reviewed the EMR, labs, latest images and other medical teams notes. Also reviewed the DIRECTOR [employer] notes and signed necessary form(s). I have noted changes in condition if any from yesterday and did orders. Please see also signed progress sheet. Since yesterday O2 was dropped to 4L followed by VM for desturation and cough. However, ABGs is satisfactory. I asked his nurse Alicia this am to change him to high flow NC. Prognosis: Guarded for now. I reviewed latest notes from Dr. Mcdonnell Will reduce O2 to 2 L NC. Respiratory failure. pulmonary fibrosis. CHF. COPD. Hypercarbia and chronic renal insufficiency. Pulmonary hypertension and PPM. Hip #. I spent 30 minutes in this process.
--- NOTE | 2019-07-04 11:29 | PROVIDER PROGRESS NOTE ---
Progress Note Dr. Garcia Progress Note/Pulmonary and or critical care We appreciated progress of care, Complications, change in diagnosis, and instructions to patient under direct supervision of Dr. Garcia. Subjective: We note the level of consciousness, bed (chair) position, family presence (if any), level of lethargy, feeling of symptoms, and changes from baseline condition/symptom. The patient is resting in bed with HFNC 40 L/min 34%. His SaO2 stays in low 90s. He appears having worsening SOB and increased work of breathing as talking and coughing with audible rattle noise and lip purse breathing at times. There is lot of thick sputum in the back of the throat and oral suction performed. He reports no pain at this time. Objective: Vital Signs: We reviewed EMR current values for Pulse rate, Blood pressure, Pulse rate, respiratory rate and Pulse oximetry. Also noted other values and trends if present (e.g. I/O, CVP). Vital Signs 07/03/19 16:00 07/03/19 20:00 07/03/19 20:09 Temperature 98.5 F 98.2 F Pulse Rate 76 70 70 Respiratory Rate 20 22 21 Blood Pressure 119/57 107/56 O2 Sat by Pulse Oximetry 95 97 96 07/04/19 00:00 07/04/19 04:00 07/04/19 07:11 Temperature 98.3 F 98.5 F 98.5 F Pulse Rate 71 88 83 Respiratory Rate 25 H 24 24 Blood Pressure 121/59 135/68 130/75 O2 Sat by Pulse Oximetry 93 L 91 L 92 L 07/04/19 08:02 07/04/19 08:54 07/04/19 09:24 Temperature Pulse Rate 90 99 H Respiratory Rate 26 H Blood Pressure O2 Sat by Pulse Oximetry 93 L 85 L 07/04/19 10:55 07/04/19 11:39 07/04/19 11:40 Temperature Pulse Rate 96 H Respiratory Rate 27 H Blood Pressure O2 Sat by Pulse Oximetry 95 95 07/04/19 11:56 Temperature 98.0 F Pulse Rate 89 Respiratory Rate 30 H Blood Pressure 132/78 O2 Sat by Pulse Oximetry 94 L Intake & Output 07/03/19 07/04/19 07/04/19 19:59 07:59 19:59 Output Total 1600 / 1600 Balance -1600 / -1600 Output: Output, Urine Void Amount 300 / 300 Output, Urine Thornton Amount 1300 / 1300 Other: Percent of Meal Consumed 25% Number of Continent Voids Not 800 Measured Number of Bowel Movements 1 Bowel Movement Color and Soft Character Formed Brown Physical Examination: General: Lying in bed with some respiratory distress noted. HEENT: Atraumatic. Normocephalic. Trachea midline. Mucosa pink and moist. Chest: Mild trachypnea with increased work of breathing, but no accessory muscle use. Audible rattle noise with expiration. Symmetrical excursion. Diminished breathing sounds bilaterally, prolong expiratory phase, rhonchi and crackles with crepitus bilaterally. CVS: Irregularly irregular. S1 S2 noted with systolic murmur. Abdomen: Soft. Flat. Non-tender. Normoactive bowel sounds in all 4 quadrants. Extremities: No pedal edema. No cyanosis. No clubbing. Dorsalis pedis diminished b/l. Neuro: A/O. Significant difficulty hearing. Speech fluent. Follow commands. Labs and Radiology: Reviewed available labs and radiology values available at time of EMR review. Laboratory Results 07/04/19 07/04/19 07/04/19 05:31 05:31 09:29 WBC 18.97 H RBC 3.54 L Hgb 9.0 L Hct 28.7 L MCV 81.1 MCH 25.4 L MCHC 31.4 L RDW Std Deviation 16.6 H Plt Count 297 MPV 9.5 Immature Gran % (Auto) 0.3 Neut % (Auto) 87.6 H Lymph % (Auto) 2.5 L [place] % (Auto) 9.0 Eos % (Auto) 0.6 Baso % (Auto) 0.0 Immature Gran # (Auto) 0.05 H Neut # (Auto) 16.64 H Lymph # (Auto) 0.47 L [place] # (Auto) 1.70 H Eos # (Auto) 0.11 Baso # (Auto) 0.00 Segmented Neutrophils 94 H Lymphocytes 2 L Monocytes 4 Hypochromia 1+ Large Platelets OCCASIONAL Anisocytosis 1+ Specimen Type ARTERIAL Sample Site R RADIAL pH 7.45 pCO2 45 pO2 101 H HCO3 30.1 H Base Excess 6.6 H Oxyhemoglobin 94.3 L ABG O2 Sat (Calculated) 10.4 L ABG O2 Saturation 98.6 ABG Carboxyhemoglobin 2.60 H ABG Methemoglobin 1.9 H Kwesi Test YES A-a O2 Difference 199.0 Total Hemoglobin 7.7 L Lactate 1.20 Liter Flow 15.0 Blood Gas Modality VENTIMASK FiO2 % 50.0 Sodium 131 L Potassium 4.4 Chloride 90 L Carbon Dioxide 29 Anion Gap 12 BUN 58 H Creatinine 1.3 H Estimated GFR/1.73 m2 52 BUN/Creatinine Ratio 45 Glucose 119 H Calculated Osmolality [address] Garcia evaluated and additional note below. Evaluation time in minutes: 34 minutes. Assessment: Advanced COPD with acute exacerbation. Acute on chronic hypoxemic resp failure. Improved. Acute hypercapnic resp failure. Pulmonary fibrosis on the bilateral lower lobes. Small right basilar pleural effusion with trace pleura effusion. Chronic congestive heart failure. Left mildly displaced femur fracture status post left amos-arthroplasty of the hip anterior on 06/27/[address] Hanks. Plan: Continue current treatment and supportive care per admitting and other teams on the case. Antibiotics, including cefepime and linezolid. Bronchodilators. Mucomysit. Steroid. Weaning down. Diuresis. Appropriate DVT and GI prophylaxis. Input was appreciated from Admitting MD and other teams on the case. See additional notes by Dr. Garcia.
[2019-07-04] MEDS: DUONEB (A & A) INH PRN (17:35)
[2019-07-04] MEDS: COLACE PO SCH (20:53)
[2019-07-05] MEDS: DUONEB (A & A) INH SCH (03:00)
[2019-07-05 04:25] VITALS: BP 141/83
[2019-07-05] MEDS ORDERED: ATIVAN IV PRN (05:13)
[2019-07-05] MEDS ORDERED: MORPHINE IV PRN (05:14)
[2019-07-05] MEDS ORDERED: EPINEPHRINE 4 MG in NS 250 ML IV SCH (05:15)
[2019-07-05] MEDS ORDERED: DIPRIVAN 1% 1,000 MG/100 ML BOTTLE IV SCH (05:15)
[2019-07-05] MEDS ORDERED: ATROPINE SYRINGE ONE (05:30)
[2019-07-05] MEDS ORDERED: CORDARONE ONE (05:30)
[2019-07-05] MEDS ORDERED: CALCIUM CHLORIDE ONE (05:30)
[2019-07-05] MEDS ORDERED: EPINEPHRINE SYRINGE ONE (05:30)
[2019-07-05] MEDS ORDERED: SODIUM BICARBONATE 8.4% ONE (05:30)
[2019-07-05] MEDS ORDERED: SODIUM CHLORIDE 0.9% INJ SCH (05:30)
[2019-07-05 05:52] LABS: BASO# 0.05 X1000 (0.0-0.2); BASO% 0.1 % (0.0-0.8); EOS# 0.07 X1000 (0.0-0.7); EOS% 0.2 % (0.0-10.0); HEMOGLOBIN 8.7 g/dL (14.0-18.0); IMM GRAN% 2.3 % (0.0-0.5); LYMPH# 4.45 X1000 (1.2-3.4); LYMPH% 12.9 % (20.5-51.1); MCH 25.6 PG (27-31); MCV 85.3 FL (81-99); MONO# 3.28 X1000 (0.11-0.59); MONO% 9.5 % (1.7-9.3); MPV 10.4 FL (7.4-10.4); NEUT# 25.76 X1000 (1.4-6.5); PLT 176 X1000 (130-400); RDW 17.1 % (11.5-14.5); WBC 34.41 X1000 (4.8-10.8)
[2019-07-05 06:21] LABS: ALB/GLOB RATIO 0.8; ALBUMIN 2.7 g/dL (3.5-5.0); CALCIUM 9.7 mg/dL (8.8-10.2); CREATININE 1.5 mg/dL (0.7-1.2); MAGNESIUM 2.5 mg/dL (1.5-2.7); PHOSPHORUS 5.7 mg/dL (2.7-4.5); POTASSIUM 4.4 mmol/L (3.5-5.1); TOTAL BILIRUBIN 0.45 mg/dL (0.20-1.00); TOTAL PROTEIN 6.3 g/dL (6.3-8.3)
[2019-07-05] MEDS ORDERED: PEPCID IV SCH (07:00)
--- NOTE | 2019-07-05 07:05 | PROGRESS NOTE ---
DATE: 07/05/2019 The patient went into cardiac respiratory arrest this morning. ACLS protocol was initiated. The patient was intubated, and was noted to be in PEA and later asystole. These were managed accordingly based on ACLS protocol. The code was not successful. The patient was subsequently pronounced . Family will be notified. cc: Saravanan Burnett MD
[2019-07-05 07:34] LABS: EOS 1 % (1-10); LYMPHS 20 % (21-51); MONO 5 % (1-9); SEGS 74 % (42-75)
--- NOTE | 2019-07-05 09:11 | EKG Report ---
Test Performed on : 07/05/2019 05:19:51 AM Test Reason : VTACH Blood Pressure : / mmHG Vent. Rate : 054 BPM Atrial Rate : 072 BPM P-R Int : 000 ms QRS Dur : 156 ms QT Int : 432 ms P-R-T Axes : 000 107 -20 degrees QTc Int : 409 ms Wide QRS rhythm. Rightward axis Nonspecific intraventricular block Abnormal ECG When compared with ECG of 05-JUL-2019 05:19, (Unconfirmed) No significant change was found Confirmed by Sukumar ARCHIBALD, Andrew Taylor ([id number]) on 07/06/2019 2:33:40 PM
--- NOTE | 2019-08-04 21:19 | DISCHARGE SUMMARY ---
ADMISSION DATE: 06/24/2019 DISCHARGE DATE: 07/05/2019 DISCHARGE DIAGNOSIS: Acute respiratory failure due to acute on chronic respiratory failure, pulmonary edema, pneumonia, hip fracture. CONSULTATIONS: Dr. Garcia, Pulmonary. Dr. Hanks, Orthopedics. PROCEDURES: None. HOSPITAL COURSE: Briefly, this is an 84-year-old male with atrial fibrillation, CHF, hypertension, COPD, prostate cancer, who came in after sustaining a fall and left femur fracture. He was short of breath baseline oxygen level of 4 L at home. He was placed on a non-rebreather. Initially seen at [place] and transferred for evaluation. He had a mildly displaced femur fracture, hypertension, possible pneumonia, loculated pleural effusion which he had treatment for previously, elevated troponin. He was transferred to the main hospital. Echo showed an EF of 70%. No wall motion abnormality. He had aortic stenosis which was felt to be moderate. Cardiology was consulted per Dr. Baez, who optimized his medications Lasix, Lanoxin and followed. Dr. Chappell was consulted, recommended cardiac clearance prior to treatment. A CT of his chest was obtained, which showed no change from prior stable vascular disease but no major pleural effusion. He ended up going undergoing open reduction and internal fixation. He was placed on cefepime and Zyvox. Dr. Hanks operated on him on the with a left hemiarthroplasty of his anterior hip. Postop course was noted for respiratory insufficiency, which he had. He was diuresed. He was maintained on antibiotics and diuresis. He also had pulmonary fibrosis. Dr. Sanders was consulted because of respiratory insufficiency. They recommended Solu-Medrol and breathing treatments which we maintained. He stabilized. Plan was to go to rehab. He had some transient hypotension, which we addressed with fluids. He did have several episodes of desaturation, which was felt to be due to possible aspiration. He had some agitation as well. We weaned steroids as tolerated. , he was doing okay. The , he started developing respiratory insufficiency, ended up being transferred to the unit. He developed progressive shortness of breath. He was placed on high-flow oxygen. On the , he developed cardiac respiratory arrest. He was intubated. He developed PA, later asystole. Unfortunately, he was pronounced on the . At 4:55, he was suctioned, awake, and alert. 4:57, he became respiratory insufficient and he unfortunately . Family was notified of his process. Unfortunately he was very high risk because of multiple issues he had during his admission. cc: Gamaliel Mcdonnell MD
== END 2019-07-05 05:34 | disposition expired | DRG 469 ==
LOC: P.ED 17:09 → SUATTDRO 20:16 → 2N 20:16 → ICU 07-04 21:46
PROVIDERS: ATTEND Internal Medicine